=== PATIENT | male | born 1965 | race Hispanic/Latino ===

== ENCOUNTER 2019-12-13 02:31 | Inpatient (IN) | payer SELFPAY ==
[2019-12-13] MEDS ORDERED: FUROSEMIDE 100 MG/10 ML VIAL IV ONE (03:23)
[2019-12-13 03:28] LABS: Absolute Lymphocytes (CBC) 1.4 K/uL (0.7-4.9); Basophils % 0.6 % (0-1.3); Hematocrit 29.9 % (39.6-49.0); Lymphocytes % 16.3 % (15.3-44.8); MPV 9.8 fL (7.6-11.3); RBC Red Blood Cell Count 3.33 M/uL (4.33-5.43)
[2019-12-13 03:39] LABS: Protime INR 0.99
[2019-12-13 03:53] LABS: ALT/SGPT 72 U/L (12-78); AST/SGOT 69 U/L (15-37); Albumin 3.5 g/dL (3.4-5.0); Alkaline Phosphatase 84 U/L (45-117); BUN Blood Urea Nitrogen 84 mg/dL (7-18); Bicarbonate 21 mmol/L (21-32); Bilirubin Direct < 0.1 mg/dL (0-0.2); Bilirubin Total 0.3 mg/dL (0.2-1.0); Glucose Level 161 mg/dL (74-106); Potassium 4.1 mmol/L (3.5-5.1); Protein, Total 7.5 g/dL (6.4-8.2); Sodium Level 142 mmol/L (136-145); Troponin (Emerg Dept Use Only) < 0.02 ng/mL (0.0-0.045)
[2019-12-13 03:56] LABS: Magnesium 3.8 mg/dL (1.8-2.4); NT PRO-BNP 26810 pg/mL (<125)
[2019-12-13 05:06] LABS: Arterial Blood Carboxyhemoglob 1.2 % (0-1.5); Blood Gas Oxyhemoglobin 85.6 % (94-97); Blood O2 Saturation 87.8 % (92-98.5)
--- NOTE | 2019-12-13 05:09 | EDPHYS ---
Physician Documentation [facility] Name: Raphael Vega Age: 54 yrs Sex: Male : 1965 Arrival Date: 12/13/2019 Time: 02:35 Bed 8 Private MD: ED Physician Reji Panchal HPI: 12/12 03:17 This 54 yrs old Male presents to ER via Ambulatory with complaints of Cough, pkl High Blood Pressure. 03:17 The patient has shortness of breath at rest. Onset: The symptoms/episode began/occurred pkl today. Associated signs and symptoms: Pertinent positives: productive cough. Historical: - Allergies: 08:42 No Known Drug Allergies; ph - PMHx: 02:55 Hypertension; Hypothyroidism; Diabetes - NIDDM; ea - PSHx: 02:55 None; ea - Immunization history:: Adult Immunizations up to date. - Social history:: Smoking status: Patient denies any tobacco usage or history of. ROS: 03:17 Eyes: Negative for injury, pain, redness, and discharge, ENT: Negative for injury, pkl pain, and discharge, Neck: Negative for injury, pain, and swelling, Cardiovascular: Negative for chest pain, palpitations, and edema. 03:17 Respiratory: Positive for cough, with clear sputum, shortness of breath. 03:17 Abdomen/GI: Negative for abdominal pain, nausea, vomiting, and diarrhea. 03:17 Back: Negative for acute changes. 03:17 : Negative for urinary symptoms. 03:17 MS/extremity: Negative for swelling, both legs. 03:17 Skin: Negative for rash. 03:17 Neuro: Negative for altered mental status, loss of consciousness. Exam: 03:17 Head/Face: Normocephalic, atraumatic. Eyes: Pupils equal round and reactive to light, pkl extra-ocular motions intact. Lids and lashes normal. Conjunctiva and sclera are non-icteric and not injected. Cornea within normal limits. Periorbital areas with no swelling, redness, or edema. ENT: Nares patent. No nasal discharge, no septal abnormalities noted. Tympanic membranes are normal and external auditory canals are clear. Oropharynx with no redness, swelling, or masses, exudates, or evidence of obstruction, uvula midline. Mucous membranes moist. Neck: Trachea midline, no thyromegaly or masses palpated, and no cervical lymphadenopathy. Supple, full range of motion without nuchal rigidity, or vertebral point tenderness. No Meningismus. Chest/axilla: Normal chest wall appearance and motion. Nontender with no deformity. No lesions are appreciated. Cardiovascular: Regular rate and rhythm with a normal S1 and S2. No gallops, murmurs, or rubs. Normal PMI, no JVD. No pulse deficits. 03:17 Respiratory: Respirations: labored breathing, that is moderate, Breath sounds: rales, that are moderate, are scattered. 03:17 Abdomen/GI: Bowel sounds: normal, Palpation: abdomen is soft and non-tender, in all quadrants. 03:17 Back: Exam negative for acute changes. 03:17 : Exam negative for acute changes. 03:17 Musculoskeletal/extremity: Extremities: grossly normal except: noted in the both legs: swelling. 03:17 Skin: Exam negative for rash. 03:17 Neuro: Orientation: is normal, Mentation: is normal, Cranial nerves: grossly normal, Motor: is normal. Vital Signs: 02:50 BP 183 / 90; Pulse 80; Resp 19; Temp 98.3; Pulse Ox 96% on R/A; Weight 68.04 kg; Height ea 5 ft. 2 in. (157.48 cm); 03:30 BP 148 / 79; Pulse 89; Resp 22; Pulse Ox 90% ; ea 04:49 BP 163 / 84; Pulse 87; Resp 22; Pulse Ox 90% on R/A; ea 06:23 BP 160 / 98; Pulse 80; Resp 18; Temp 98.2; Pulse Ox 90% ; ea 07:30 BP 162 / 94; Pulse 82; Resp 18; Pulse Ox 98% on 2 lpm NC; ph 08:30 BP 150 / 89; Pulse 86; Resp 18; Temp 98.0; Pulse Ox 98% on 2 lpm NC; ph 02:50 Body Mass Index 27.44 (68.04 kg, 157.48 cm) ea MDM: 02:43 Patient medically screened. pkl 05:06 Data reviewed: vital signs, nurses notes, lab test result(s), EKG, radiologic studies, pkl plain films. ED course: Talked to sascha Hendricks. 12/12 02:56 Order name: Basic Metabolic Panel; Complete Time: 03:59 ea 12/12 02:56 Order name: CBC with Diff; Complete Time: 03:59 ea 12/12 02:56 Order name: LFT's; Complete Time: 03:59 ea 12/12 02:56 Order name: Magnesium; Complete Time: 03:59 ea 12/12 02:56 Order name: NT PRO-BNP; Complete Time: 03:59 ea 12/12 02:56 Order name: PT-INR; Complete Time: 03:59 ea 12/12 02:56 Order name: Troponin (emerg Dept Use Only); Complete Time: 03:59 ea 12/12 02:56 Order name: XRAY Chest (1 view) ea 12/12 03:15 Order name: ABG; Complete Time: 05:08 pkl 12/12 03:24 Order name: D-Dimer; Complete Time: 03:59 EDWI 12/12 05:29 Order name: COVID-19 mw2 12/12 06:25 Order name: Ur Protein EDWI 12/12 06:25 Order name: Urinalysis W/Microscopic EDWI 12/12 02:56 Order name: EKG; Complete Time: 02:57 12/12 02:56 Order name: Cardiac monitoring; Complete Time: 03:09 ea 12/12 02:56 Order name: EKG - Nurse/Tech; Complete Time: 03:09 12/12 02:56 Order name: IV Saline Lock; Complete Time: 03:17 ea 12/12 02:56 Order name: Labs collected and sent; Complete Time: 03:09 12/12 02:56 Order name: O2 Per Protocol; Complete Time: 03:10 ea 12/12 02:56 Order name: O2 Sat Monitoring; Complete Time: 03:10 12/12 06:19 Order name: Abdomen EDWI 12/12 06:24 Order name: CONS Pharmacy Consult EDWI 12/12 06:24 Order name: CONS Physician Consult [facility] 12/12 06:24 Order name: NPO EDWI Administered Medications: 03:17 Drug: Lasix 80 mg Route: IVP; Site: right antecubital; ea 04:58 Follow up: Response: No adverse reaction; Marked relief of symptoms ea Disposition: 12/13/19 05:08 Hospitalization ordered by Mildred Simmons for Inpatient Admission. Preliminary diagnosis is Acute dyspnea. Pulmonary edema. Chronic renal disease. - Bed requested for Telemetry/MedSurg (Inpatient). - Status is Inpatient Admission. ph - Condition is Stable. - Problem is new. - Symptoms have improved. Signatures: Dispatcher [employer] EDWI Suyapa Singh RN RN mw Lam, Pin, MD MD pkl Tania Mckenzie RN RN ph Antunez, Elena, RN RN ea Corrections: (The following items were deleted from the chart) 03:24 03:21 D-DIMER+COAG.LAB.BRZ ordered. EDWI EDMS 06:28 05:08 Hospitalization Ordered by Mildred Simmons MD for Inpatient Admission. Preliminary diagnosis is Acute dyspnea. Pulmonary edema. Chronic renal disease. Bed requested for Telemetry/MedSurg (Inpatient). Status is Inpatient Admission. Condition is Stable. Problem is new. Symptoms have improved. pkl 09:19 06:28 12/13/2019 05:08 Hospitalization Ordered by Mildred Simmons MD for Inpatient ph Admission. Preliminary diagnosis is Acute dyspnea. Pulmonary edema. Chronic renal disease. Bed requested for Telemetry/MedSurg (Inpatient). Status is Inpatient Admission. Condition is Stable. Problem is new. Symptoms have improved. mw
--- NOTE | 2019-12-13 05:09 | ER ---
Nurse's Notes [facility] Name: Raphael Vega Age: 54 yrs Sex: Male : 1965 Arrival Date: 12/13/2019 Time: 02:35 Bed 8 Private MD: Diagnosis: Acute dyspnea. Pulmonary edema. Chronic renal disease Presentation: 12/12 02:50 Chief complaint: Patient states: Reports increase blood pressure 200/100s half an hour ea ago. Pt reports he started coughing and having a hard time catching his breath. Tomasz lower extremity edema noted. Coronavirus screen: Patient reports a cough. Patient denies shortness of breath or difficulty breathing. Patient denies measured and/or subjective temperature greater than 100.4F prior to today's visit. Patient denies travel on a cruise ship or to a country the [facility] currently lists as an affected area. Patient denies contact with known and/or suspected case of COVID-19. Ebola Screen: No symptoms or risks identified at this time. Initial Sepsis Screen: Does the patient meet any 2 criteria? No. Patient's initial sepsis screen is negative. Does the patient have a suspected source of infection? No. Patient's initial sepsis screen is negative. Risk Assessment: Do you want to hurt yourself or someone else? Patient reports no desire to harm self or others. Onset of symptoms was December 13, 2019. 02:50 Method Of Arrival: Ambulatory ea 02:50 Acuity: SMITHA 3 ea Triage Assessment: 02:55 General: Appears uncomfortable, Behavior is appropriate for age. Pain: Denies pain. ea Historical: - Allergies: 08:42 No Known Drug Allergies; ph - PMHx: 02:55 Hypertension; Hypothyroidism; Diabetes - NIDDM; ea - PSHx: 02:55 None; ea - Immunization history:: Adult Immunizations up to date. - Social history:: Smoking status: Patient denies any tobacco usage or history of. Screenin:50 Abuse screen: Denies threats or abuse. Nutritional screening: No deficits noted. ea Tuberculosis screening: No symptoms or risk factors identified. Fall Risk None identified. Assessment: 02:55 General: Appears uncomfortable, Behavior is appropriate for age. Pain: Denies pain. ea Neuro: Level of Consciousness is awake, alert, obeys commands, Oriented to person, place, time, situation. Cardiovascular: Patient's skin is warm and dry. Respiratory: Airway is patent Respiratory effort is even, labored, Respiratory pattern is regular, symmetrical, Breath sounds are coarse Breath sounds with rhonchi. Derm: Skin is pink, warm \T\ dry. 03:30 Reassessment: Patient and/or family updated on plan of care and expected duration. Pain ea level reassessed. Patient is alert, oriented x 3, equal unlabored respirations, skin warm/dry/pink. 04:53 Reassessment: Patient and/or family updated on plan of care and expected duration. Pain ea level reassessed. Patient is alert, oriented x 3, equal unlabored respirations, skin warm/dry/pink. Patient states feeling better. Patient states symptoms have improved. 05:10 Reassessment: Patient and/or family updated on plan of care and expected duration. Pain ea level reassessed. Patient is alert, oriented x 3, equal unlabored respirations, skin warm/dry/pink. Provider at bedside updating pt on plan of care. Pt verbalized the understanding on the need for hospitalization. 06:23 Reassessment: Patient and/or family updated on plan of care and expected duration. Pain ea level reassessed. Patient is alert, oriented x 3, equal unlabored respirations, skin warm/dry/pink. 07:30 Reassessment: Patient appears in no apparent distress at this time. No changes from ph previously documented assessment. Patient and/or family updated on plan of care and expected duration. Pain level reassessed. Patient is alert, oriented x 3, equal unlabored respirations, skin warm/dry/pink. Vital Signs: 02:50 BP 183 / 90; Pulse 80; Resp 19; Temp 98.3; Pulse Ox 96% on R/A; Weight 68.04 kg; Height ea 5 ft. 2 in. (157.48 cm); 03:30 BP 148 / 79; Pulse 89; Resp 22; Pulse Ox 90% ; ea 04:49 BP 163 / 84; Pulse 87; Resp 22; Pulse Ox 90% on R/A; ea 06:23 BP 160 / 98; Pulse 80; Resp 18; Temp 98.2; Pulse Ox 90% ; ea 07:30 BP 162 / 94; Pulse 82; Resp 18; Pulse Ox 98% on 2 lpm NC; ph 08:30 BP 150 / 89; Pulse 86; Resp 18; Temp 98.0; Pulse Ox 98% on 2 lpm NC; ph 02:50 Body Mass Index 27.44 (68.04 kg, 157.48 cm) ea ED Course: 02:35 Patient arrived in ED. ag3 02:42 Taylor Pastor is Primary Nurse. 02:43 Reji Panchal MD is Attending Physician. pkl 02:53 Triage completed. ea 02:53 Patient has correct armband on for positive identification. Placed in gown. Bed in low ea position. Call light in reach. Side rails up X 1. sba underwriter on. Pulse ox on. NIBP on. 02:53 Arm band placed on right wrist. Patient placed in an exam room, on a stretcher, on ea pulse oximetry. 03:17 Inserted saline lock: 20 gauge in right antecubital area, using aseptic technique. ea Blood collected. 03:23 XRAY Chest (1 view) In Process Unspecified. EDMS 03:47 Notified ED physician of a critical lab result(s). D Dimer elevated. sg 05:07 Mildred Simmons MD is Hospitalizing Provider. pkl 05:10 No provider procedures requiring assistance completed. Patient admitted, IV remains in ea place. 06:47 Abdomen In Process Unspecified. EDMS Administered Medications: 03:17 Drug: Lasix 80 mg Route: IVP; Site: right antecubital; ea 04:58 Follow up: Response: No adverse reaction; Marked relief of symptoms ea Output: 04:51 Urine: 600ml (Voided); Total: 600ml. ea Outcome: 05:08 Decision to Hospitalize by Provider. pkl 05:10 Instructed on the need for admit, Demonstrated understanding of instructions. ea 08:51 Admitted to Tele accompanied by tech, room 431, with oxygen, with chart, Report called ph to [facility] 08:51 Condition: stable 09:19 Patient left the ED. ph Signatures: Dispatcher [employer] EDMS Goldy Mon RN RN sg Lam, Pin, MD MD pkl Tania Mckenzie RN RN ph Antunez, Elena, RN RN ea Habalo, Winsy Dolly Goss ag3
[2019-12-13] MEDS ORDERED: ACETAMINOPHEN 500 MG TAB PO PRN (06:20)
[2019-12-13] MEDS ORDERED: ONDANSETRON 4 MG/2 ML VIAL IV PRN (06:20)
[2019-12-13] MEDS ORDERED: MORPHINE 2 MG/ML SYR IV PRN (06:20)
--- NOTE | 2019-12-13 06:54 | P.HP ---
Certification for Inpatient Patient admitted to: Inpatient With expected LOS: >2 Midnights Patient will require the following post-hospital care: None Practitioner: I am a practitioner with admitting privileges, knowledge of patient current condition, hospital course, and medical plan of care. Services: Services provided to patient in accordance with Admission requirements found in Title 42 Section 412.3 of the Code of Federal Regulations Patient History Date of Service: 12/13/19 Reason for admission: Acute on chronic kidney disease History of Present Illness: Patient is a 54-year-old gentleman came to hospital with shortness of breath. Patient creatinine has slowly worsened over the last few months according to patient. He said he follows up with his polish compounder Dr. Briscoe-but he apparently has never seen her in the clinic; he does not have insurance and he has never been worked up extensively for hemodialysis. He was having difficulty voiding and he was given Lasix in the ER and he put out about 600 cc. He is feeling better. CT scan is pending to rule out obstructive nephropathy; make sure this is not causing his renal failure. If this is normal, then he will be admitted to our hospital for further evaluation. Allergies No Known Drug Allergies Allergy (Verified 12/13/19 10:17) Unknown Home Medications: Atenolol [Tenormin] 25 mg PO DAILY 12/13/19 Furosemide [Lasix*] 40 mg PO DAILY 12/13/19 glipiZIDE [Glucotrol*] 5 mg PO DAILY 12/13/19 lisinopriL [Prinivil*] 20 mg PO DAILY 12/13/19 - Past Medical/Surgical History -: Chronic kidney disease -: Hypertension -: Diabetes -: Hypothyroidism Past Surgical History: Patient denies surgical history - Family History Father Family History: Reviewed- Non-Contributory - Social History Smoking Status: Former smoker Alcohol use: No CD- Drugs: No Review of Systems 10-point ROS is otherwise unremarkable Physical Examination - Vital Signs Temperature: 99 F Blood Pressure: 180/90 Pulse: 90 Respirations: 18 Pulse Ox (%): 90 - Physical Exam General: Alert, In no apparent distress, Oriented x3 HEENT: Atraumatic, PERRLA, Mucous membr. moist/pink, EOMI, Sclerae nonicteric Neck: Supple, 2+ carotid pulse no bruit, No LAD, Without JVD or thyroid abnormality Respiratory: Diminished, Crackles/rales Cardiovascular: Regular rate/rhythm, Normal S1 S2, No murmurs Gastrointestinal: Normal bowel sounds, Soft and benign, Non-distended, No tenderness Musculoskeletal: No clubbing, No tenderness, Swelling Integumentary: No rashes Neurological: Normal gait, Normal speech, Normal tone, Sensation intact, Cranial nerves 3-12 intact, Normal affect, Abnormal strength Lymphatics: No axilla or inguinal lymphadenopathy - Studies Laboratory Data (last 24 hrs) 12/13/19 03:06: PT 11.7, INR 0.99 12/13/19 03:06: WBC 8.5, Hgb 10.1 L, Hct 29.9 L, Plt Count 176 12/13/19 03:06: Sodium 142, Potassium 4.1, BUN 84 H, Creatinine 5.94 H*, Glucose 161 H, Magnesium 3.8 H*, Total Bilirubin 0.3, AST 69 H, ALT 72, Alkaline Phosphatase 84 Assessment & Plan - Problems (Diagnosis) (1) Acute kidney injury superimposed on chronic kidney disease Current Visit: Yes Status: Acute (2) Volume overload Current Visit: Yes Status: Acute (3) Dyspnea Current Visit: Yes Status: Acute (4) Hypertension Current Visit: Yes Status: Acute (5) Type 2 diabetes mellitus Current Visit: Yes Status: Acute - Plan Plan: 1. Nephrology consultation 2. Continue to diurese patient 3. Strict blood pressure control 4. COVID-19 testing 5. Albuterol inhaler therapy along with dexamethasone 6. Strict blood sugar control 7. Monitor thyroid levels 8. GI and DVT prophylaxis Discharge Plan: Home Plan to discharge in: Greater than 2 days - Advance Directives Does patient have a Living Will: No Does patient have a Durable POA for Healthcare: No - Code Status/Comfort Care Code Status Assessed: Yes Code Status: Full Code Critical Care: No Time Spent Managing PTS Care (In Minutes): 45
[2019-12-13] MEDS ORDERED: NA CHLORIDE 0.9% 1,000 ML IV SCH (07:00)
[2019-12-13] MEDS ORDERED: FUROSEMIDE 40 MG/4 ML VIAL IV SCH (08:00)
[2019-12-13] MEDS: AMLODIPINE 10 MG TAB PO SCH (10:03)
[2019-12-13] MEDS: FUROSEMIDE 100 MG/10 ML VIAL IV SCH ×2 (10:04→17:38)
[2019-12-13 10:26] VITALS: BMI 27.4
--- NOTE | 2019-12-13 10:59 | RAD REPORT ---
EXAM DESCRIPTION: Maryana Single View12/13/2019 3:23 am CLINICAL HISTORY: Cough COMPARISON: none FINDINGS: Small pleural effusions The heart is mildly enlarged Moderate left alveolar opacities. There may be minimal right lung opacities IMPRESSION: Moderate left alveolar opacities with minimal right lung opacities. This may indicate pn eumonia such as Covid or asymmetric pulmonary edema
[2019-12-13 13:11] LABS: Urine Appearance CLEAR; Urine Bilirubin NEGATIVE (NEG); Urine Blood 2+ (NEG); Urine Color YELLOW; Urine Glucose NEGATIVE (NEG); Urine Protein 2+ (NEG); Urine Urobilinogen 0.2 mg/dL (0.2-1.0)
[2019-12-13 13:15] LABS: Urine Protein/Creatinine Ratio 6.8 ratio (<0.15)
[2019-12-13 13:16] LABS: Urine Bacteria <20 /HPF (NONE SEEN); Urine RBC <5 /HPF (NONE SEEN)
[2019-12-13 13:17] LABS: Urine Culture Reflex Order NOT NEEDED
--- NOTE | 2019-12-13 13:33 | CON ---
Date of Consultation: 12/13/2019 Additional Consulting Physician: Mildred Simmons M.D. Reason For Consultation: Elevated BUN and creatinine. History Of Present Illness: This is a 54-year-old gentleman with significant past medical history of diabetes complicated with neuropathy and nephropathy, hypertension, hyperlipidemia, chronic kidney d isease unknown base line, the patient came to the hospital complaining from cough without any nausea, any vomiting. The patient was admitted to rule out COVID. The patient known to have chronic kidney disease, but he does not know his baseline. Past Medical History: 1.Diabetes. 2.Hypertension. 3.Hyperlipidemia. Social History: Denies smoking. Denies drinking. Allergies: NO KNOWN DRUG ALLERGIES. Family History: Positive for diabetes. Past Surgical History: Non contribute. Review of Systems: Head and Neck: No red eye. No ear pain. GI: No nausea. No vomiting. : No polyuria. No dysuria. No hematuria. Cooler Service Supervisor: Not applicable. Respiratory: No shortness of breath. Cardiovascular: No chest pain. Endocrine: No polydipsia. Skin: No rash. Neuro: Has neuropathy. Musculoskeletal: No joint pain. Physical Examination: Vital Signs: When I saw the patient, blood pressure 162/88, pulse of 91. Chest: Faint crackles bilateral base. Heart: S1 and S2. Systolic murmur. Abdomen: Soft. Nontender. Extremities: No edema. Neurologic: Alert and oriented x3. No focal. No tremor. Laboratory Data: WBC 8.5, H and H 10.1/29.9, platelets 176. Sodium 142, potassium 4.1, bicarb 21, B UN 84, creatinine 5.9, GFR of 8, calcium 7.8, magnesium 3.8. BNP 26,000. Chest x-ray, cardiomegaly with congestion bilaterally. ABG; pH 7.36, CO2 36, O2 55. Current Medications: The patient on include amlodipine, Tylenol, Lasix, Zofran. Assessment And Plan: 1.Acute kidney injury on possible chronic kidney disease secondary to diabetes, nephropathy, over vo lume. I am going to go ahead and increase his Lasix to t.i.d. There are no uremic symptoms. No hyp erkalemia or acidosis. I do not see the urgency to initiate renal replacement therapy for the time ei. We will follow up. We will get renal ultrasound and PTH to evaluate the chronicity of the dis ease. 2.With the presence of anemia, light chain disease needs to be ruled out. We will send for protein electrophoresis. 3.Hypertension. We will utilize the blood pressure for more diuresis. 4.Diabetes, as by primary. 5.Suspect COVID pneumonia. We will follow up with Pulmonary. DEDRICK Voice ID: [id number] Report ID: [id number]
--- NOTE | 2019-12-13 18:42 | RAD REPORT ---
EXAM DESCRIPTION: US - Renal Ultrasound-Complete - 12/13/2019 6:34 pm CLINICAL HISTORY: Chronic renal disease COMPARISON: None. FINDINGS: The right kidney measures 9 cm with an increased echotexture. The left kidney measures 8 cm with an increased echotexture. Hydronephrosis is not seen. No gross abnormality of bladder is seen IMPRESSION: Increased renal echotexture consistent with parenchymal disease
--- NOTE | 2019-12-14 08:10 | EKG ---
Test Date: 2019-12-13 Test Time: 03:05:07 Clinical Pharmacologist: ERICA MEASUREMENT RESULTS: Intervals: Rate: 109 ME: 132 QRSD: 76 QT: 358 QTc: 482 Chambers: P: 68 ME: 132 QRS: -7 T: 71 INTERPRETIVE STATEMENTS: Sinus tachycardia Possible Left atrial enlargement Nonspecific ST and T wave abnormality Abnormal ECG No previous ECG available for comparison Electronically Signed On 12-14-19 08:08:56 CDT by Keven Zamudio
[2019-12-14 08:23] LABS: Albumin 2.9 g/dL (3.4-5.0); Phosphorus 6.6 mg/dL (2.5-4.9); Potassium 3.8 mmol/L (3.5-5.1); Thyroid Stimulating Hormone 1.5 uIU/mL (0.360-3.740)
[2019-12-14] MEDS: FUROSEMIDE 100 MG/10 ML VIAL IV SCH (09:15)
[2019-12-14] MEDS: AMLODIPINE 10 MG TAB PO SCH (09:16)
[2019-12-14 10:40] LABS: Ferritin 96.4 ng/mL (26-388); Folic Acid, (Folate) 14.2 ng/mL (3.1-17.5)
--- NOTE | 2019-12-14 12:09 | P.PN ---
Subjective Date of Service: 12/14/19 Chief Complaint: Acute on chronic kidney disease Subjective: No new changes, No C/O voiced Review of Systems 10-point ROS is otherwise unremarkable Physical Examination - Vital Signs Temperature: 98.4 F Blood Pressure: 122/68 Pulse: 71 Respirations: 16 Pulse Ox (%): 100 - Physical Exam General: Alert, In no apparent distress HEENT: Atraumatic, Normocephalic Neck: Supple Respiratory: Clear to auscultation bilaterally, Normal air movement Cardiovascular: No edema, Normal pulses, Regular rate/rhythm Capillary refill: <2 Seconds Gastrointestinal: Soft and benign, W/out hepatosplenomegaly Musculoskeletal: No clubbing, No swelling Integumentary: No rashes Neurological: Normal speech, Normal strength at 5/5 x4 extr Lymphatics: No axilla or inguinal lymphadenopathy Assessment & Plan - Problems (Diagnosis) (1) Acute kidney injury superimposed on chronic kidney disease Current Visit: Yes Status: Acute (2) Dyspnea Current Visit: Yes Status: Acute (3) Hypertension Current Visit: Yes Status: Acute (4) Type 2 diabetes mellitus Current Visit: Yes Status: Acute (5) Volume overload Current Visit: Yes Status: Acute Physician Review Additional Text: Plan: Nephrology consultation appreciated Continue to diurese patient Strict blood pressure control COVID-19 testing Albuterol inhaler therapy along with dexamethasone Strict blood sugar control Monitor thyroid levels GI and DVT prophylaxis 12/14/2019 renal parameters monitored Appreciate help from nephrology Renal ultrasound showed parenchymal disease Nephrology recommended conservative management No urgent indication for dialysis At this time Antihypertensives titrated Continue aggressive diuresis Monitor under telemetry Possible Dc if cleared by Nephrology in a.m. Time Spent Managing Pts Care (In Minutes): 38
[2019-12-14] MEDS ORDERED: CALCITROL 0.25 MCG CAP PO SCH (15:00)
--- NOTE | 2019-12-14 15:24 | P.DS ---
Admission Date: 12/13/19 Discharge Date: 12/15/19 Disposition: ROUTINE DISCHARGE Discharge Condition: GOOD Reason for Admission: Acute on chronic kidney disease - Problems (1) Acute kidney injury superimposed on chronic kidney disease Status: Acute (2) Dyspnea Status: Acute (3) Hypertension Status: Acute (4) Type 2 diabetes mellitus Status: Acute (5) Volume overload Status: Acute Brief History of Present Illness: 54-year-old gentleman came to hospital with shortness of breath. Patient creatinine has slowly worsened over the last few months according to patient. He said he follows up with his irrigationist designer Dr. Briscoe-but he apparently has never seen her in the clinic; he does not have insurance and he has never been worked up extensively for hemodialysis. He was having difficulty voiding and he was given Lasix in the ER and he put out about 600 cc. He is feeling better. CT scan is pending to rule out obstructive nephropathy; make sure this is not causing his renal failure. If this is normal, then he will be admitted to our hospital for further evaluation. Hospital Course: Nephrology consultation appreciated Continue to diurese patient Strict blood pressure control COVID-19 testing Albuterol inhaler therapy along with dexamethasone Strict blood sugar control Monitor thyroid levels GI and DVT prophylaxis 12/14/2019 renal parameters monitored Appreciate help from nephrology Renal ultrasound showed parenchymal disease Nephrology recommended conservative management No urgent indication for dialysis At this time Antihypertensives titrated Continue aggressive diuresis Monitor under telemetry Possible Dc if cleared by Nephrology . Vital Signs/Physical Exam: Temp Pulse Resp BP Pulse Ox 98.4 F 71 16 122/68 100 12/14/19 12:11 12/14/19 12:11 12/14/19 12:11 12/14/19 12:11 12/14/19 12:11 General: Alert, In no apparent distress HEENT: Atraumatic, Normocephalic Neck: Supple Respiratory: Clear to auscultation bilaterally, Normal air movement Cardiovascular: Normal pulses, Regular rate/rhythm Capillary refill: <2 Seconds Gastrointestinal: Soft and benign, W/out hepatosplenomegaly Musculoskeletal: No clubbing, No swelling Integumentary: No breakdown Neurological: Normal speech, Normal strength at 5/5 x4 extr Laboratory Data at Discharge: WBC 8.5 K/uL (4.3-10.9) 12/13/19 03:06 Hgb 10.1 g/dL (13.6-17.9) L 12/13/19 03:06 Hct 29.9 % (39.6-49.0) L 12/13/19 03:06 Plt Count 176 K/uL (152-406) 12/13/19 03:06 PT 11.7 SECONDS (9.5-12.5) 12/13/19 03:06 INR 0.99 12/13/19 03:06 Sodium 143 mmol/L (136-145) 12/14/19 06:14 Potassium 3.8 mmol/L (3.5-5.1) 12/14/19 06:14 BUN 100 mg/dL (7-18) H 12/14/19 06:14 Creatinine 6.14 mg/dL (0.55-1.3) H* 12/14/19 06:14 Glucose 82 mg/dL (74-106) 12/14/19 06:14 Phosphorus 6.6 mg/dL (2.5-4.9) H 12/14/19 06:14 Magnesium 3.8 mg/dL (1.8-2.4) H* 12/13/19 03:06 Total Bilirubin 0.3 mg/dL (0.2-1.0) 12/13/19 03:06 AST 69 U/L (15-37) H 12/13/19 03:06 ALT 72 U/L (12-78) 12/13/19 03:06 Alkaline Phosphatase 84 U/L (45-117) 12/13/19 03:06 Home Medications: glipiZIDE [Glucotrol*] 5 mg PO DAILY 12/13/19 Amlodipine [Norvasc*] 10 mg PO DAILY #30 tab 12/14/19 Calcitrol [Rocaltrol*] 0.25 mcg PO Q48H #30 cap 12/14/19 Calcium Carbonate [Tums Regular*] 500 mg PO AC #90 tab 12/14/19 Furosemide [Lasix] 40 mg PO BID #60 tab 12/14/19 Furosemide [Lasix] 80 mg PO DAILY 30 Days #60 tab 12/14/19 New Medications: Furosemide [Lasix] 80 mg PO DAILY 30 Days #60 tab Furosemide [Lasix] 40 mg PO BID #60 tab Amlodipine [Norvasc*] 10 mg PO DAILY #30 tab Calcitrol [Rocaltrol*] 0.25 mcg PO Q48H #30 cap Calcium Carbonate [Tums Regular*] 500 mg PO AC #90 tab Followup: Pretty Carolina MD [ACTIVE - CAN ADMIT] - Time spent managing pt's care (in minutes): 35
[2019-12-14 16:20] VITALS: O2SAT 95
[2019-12-14] MEDS ORDERED: CALCIUM CARBONATE CHEW 500MG TAB PO SCH (16:30)
[2019-12-14 16:49] VITALS: BP 117/65; TEMP 98.9
--- NOTE | 2019-12-14 20:28 | PN ---
Date of Progress Note: 12/14/2019 Subjective: The patient was admitted with elevation in BUN and creatinine. The patient was over vol ume. The patient started on diuresis, responded to diuresis very well. Physical Examination: Vital Signs: Blood pressure 122/68, pulse of 70, afebrile. Patient had good urine output of 3100, n egative of 2200. Patient is on room air. Chest: Clear to auscultation. Heart: S1, S2 regular. Abdomen: Soft, nontender. Extremities: No edema. Laboratory Data: H and H 10.1/29.9. Sodium 143, potassium 3.8, bicarb 26, BUN 100, creatinine 6.1, calcium 8.1, phosphorus 6.6. Renal ultrasound is showing 9/8 cm. Assessment And Plan: 1.Chronic kidney disease, stage 5, advanced nonoliguric, no hyperkalemia. No acidosis. Normal volum e, currently responds to diuresis. I do not see the need to initiate any renal replacement therapy. We will continue current diuresis. The patient is okay to be discharged on current Lasix. To follo w up in the office in 2-3 weeks with chemistry. The patient understands he need to be on fluid restr iction. 2.Hypertension, controlled, optimal. We will keep utilizing the blood pressure for more diuresis. 3.Pulmonary edema as above. 4.Secondary hyperparathyroidism. I am going to start the patient on calcitriol and Tums. NARENDRA/RAVI Voice ID: [id number] Report ID: [id number]
--- NOTE | 2019-12-15 08:31 | RAD REPORT ---
EXAM DESCRIPTION: CT - Abdomen Pelvis Wo Contrast - 12/13/2019 7:52 am CLINICAL HISTORY: ADRIAN COMPARISON: None. TECHNIQUE: Sequential axial images were obtained with a multi-detector helical CT without administra tion of intravenous iodinated contrast material. Oral contrast was not given. Automatic exposure control (AEC), mA and/or kV adjustment by patient s ize, and/or iterative reconstructive technique was used, per departmental dose optimization program, during the performance of the CT examination. The lack of intravenous contrast limits detailed evaluation of the abdominal organs. FINDINGS: The visualized lung bases demonstrate bilateral pleural effusions right greater than left. Groundglass opacities are seen in the lung bases, greater in the left lower lobe. Possibility of vir al pneumonia including COVID-19 19 pneumonia should be considered is also suggestion of a small peric ardial effusion and anemia. The non-contrast enhanced images of the liver, spleen, pancreas and adrenals are unremarkable. Gallbl adder is unremarkable The kidneys are normal in appearance. There are no renal calculi. Mild perinephric stranding is noted probably sequela of remote renal infection or obstruction Normal appearance of the abdominal aorta, IVC and retroperitoneum are noted. The stomach is unremarkable. The loops of small bowel are unremarkable. The colon appears unremarka ble. The appendix is normal. The bladder is unremarkable. There is no pelvic or abdominal lymphadenopathy. No ascites. No fr ee air. The prostate and seminal vesicles appear normal. The inguinal regions demonstrate fat-containing bilateral inguinal hernia.. The visualized bony structures are unremarkable. Mild disc protrusion is noted at L5-S1 IMPRESSION: Unremarkable non-contrast abdominal and pelvis CT. Presence of bilateral pleural effus ions and groundglass opacities in lung bases as described above. Electronically signed by: Joana Stallings MD 12/13/2019 7:36 AM CDT Due to temporary technical issues with the PACS/Fluency reporting system, reports are being signed by the in house radiologist without review as a courtesy to ensure prompt reporting. The interpreting r adiologist is fully responsible for the content of the report.
[2019-12-18 23:04] LABS: Albumin, (SPE) 3.1 g/dL (3.8-4.8); Alpha-1-Globulins 0.3 g/dL (0.2-0.3); Alpha-2-Globulins 0.7 g/dL (0.5-0.9); Gamma Globulins 0.7 g/dL (0.8-1.7); INTERPRETATION REPORT
== END 2019-12-14 16:24 | disposition home or self-care (01) | DRG 683 ==
LOC: ER 02:31 → ERHOLD 06:54 → 4TH 08:51
PROVIDERS: ADMIT Hospitalist; ATTEND Hospitalist
DX: N17.9 Acute kidney failure, unspecified (principal); I12.0 Hypertensive chronic kidney disease with stage 5 chronic kidney disease or end stage renal disease; J81.1 Chronic pulmonary edema; E11.22 Type 2 diabetes mellitus with diabetic chronic kidney disease; R06.02 Shortness of breath; Z79.84 Long term (current) use of oral hypoglycemic drugs; Z20.828 Contact with and (suspected) exposure to other viral communicable diseases; Z79.899 Other long term (current) drug therapy; E87.70 Fluid overload, unspecified; R06.00 Dyspnea, unspecified; R05 Cough; N18.5 Chronic kidney disease, stage 5; N25.81 Secondary hyperparathyroidism of renal origin; E11.40 Type 2 diabetes mellitus with diabetic neuropathy, unspecified; E78.5 Hyperlipidemia, unspecified; D64.9 Anemia, unspecified; Z87.891 Personal history of nicotine dependence
CPT/HCPCS: 36415; 71045; 74176; 76770; 80048; 80069; 80076; 81001; 82550; 82570; 82728; 82746; 82805; 82947; 83735; 83880; 83970; 84156; 84165; 84443; 84484; 85025; 85379; 85610; 86038; 93005; 96374; 99285; U0002

== ENCOUNTER 2020-04-26 06:36 | Emergency (ER) | payer SELFPAY ==
--- NOTE | 2020-04-26 08:05 | RAD REPORT ---
EXAM DESCRIPTION: RAD - Chest Single View - 04/26/2020 7:48 am CLINICAL HISTORY: ESRD, shortness of breath COMPARISON: December 12 TECHNIQUE: AP portable chest image was obtained 04/26/2020 7:48 am . FINDINGS: Right jugular double-lumen dialysis catheter in place, new since the comparison study. Cat heter is well positioned. Patchy bilateral airspace opacification present. Mild baseline interstitial pattern seen. Cardiac joanne houette is mildly enlarged but measures smaller than the prior study. No measurable pleural effusion and no pneumothorax. No acute bony abnormality seen. No acute aortic findings suspected. IMPRESSION: Scattered bilateral airspace opacification. In a dialysis patient with no stated acute respiratory symptoms, this lung pattern is most likely vol ume overload.
[2020-04-26 08:23] LABS: Potassium 4.7 mmol/L (3.5-5.1)
--- NOTE | 2020-04-26 08:48 | EDPHYS ---
Physician Documentation [facility] Name: Raphael Vega Age: 54 yrs Sex: Male : 1965 Arrival Date: 04/26/2020 Time: 06:40 Bed 7 Private MD: ED Physician Román Winters HPI: 04/26 08:04 This 54 yrs old Male presents to ER via Ambulatory with complaints of ESRD. rn 08:04 Reports told by nephrology that needs to come 3x/week for dialysis, in undocumented, rn not from this country, and unable to get assistance for dialysis. Just initiated dialysis last week for first time, no complaints. . Onset: The symptoms/episode began/occurred at an unknown time. Severity of symptoms: At their worst the symptoms were very mild. The patient has experienced similar episodes in the past. The patient has been recently been admitted at [facility]. Historical: - Allergies: 06:52 No Known Allergies; sg - PMHx: 06:52 Diabetes - NIDDM; Hypertension; Hypothyroidism; sg - PSHx: 06:52 None; sg - Immunization history:: Adult Immunizations up to date. - Social history:: Smoking status: Patient denies any tobacco usage or history of. - Family history:: not pertinent. - Hospitalizations: : The patient was recently seen at [facility]. ROS: 08:04 Constitutional: Negative for fever, chills, and weight loss, Eyes: Negative for injury, rn pain, redness, and discharge, Neck: Negative for injury, pain, and swelling, Cardiovascular: Negative for chest pain, palpitations, and edema, Respiratory: Negative for shortness of breath, cough, wheezing, and pleuritic chest pain, Abdomen/GI: Negative for abdominal pain, nausea, vomiting, diarrhea, and constipation, Back: Negative for injury and pain, MS/Extremity: Negative for injury and deformity, Skin: Negative for injury, rash, and discoloration, Neuro: Negative for headache, weakness, numbness, tingling, and seizure. Exam: 08:04 Constitutional: This is a well developed, well nourished patient who is awake, alert, rn and in no acute distress. Head/Face: Normocephalic, atraumatic. Chest/axilla: + right sided catheter for dialysis clean and dry Cardiovascular: Regular rate and rhythm. No pulse deficits. Respiratory: Speaking full sentences, unlabored. No increased work of breathing, no retractions or nasal flaring. Abdomen/GI: soft, non-tender Skin: Warm, dry MS/ Extremity: Pulses equal, no cyanosis. Neurovascular intact. Full, normal range of motion. Equal circumference. Neuro: Awake and alert, GCS 15 Vital Signs: 06:46 BP 146 / 82; Pulse 87; Resp 20; Temp 97.7; Pulse Ox 97% on R/A; sg 08:00 BP 137 / 78; Pulse 76; Resp 18; Pulse Ox 99% on R/A; em MDM: 06:56 Patient medically screened. ma2 08:42 Differential Diagnosis ESRD, hyperkalemia, volume overload. Data reviewed: vital signs, rn nurses notes, lab test result(s), EKG, radiologic studies, plain films, and as a result, I will discharge patient. Counseling: I had a detailed discussion with the patient and/or guardian regarding: the historical points, exam findings, and any diagnostic results supporting the discharge/admit diagnosis, lab results, radiology results. 08:45 ED course: Pt still make surine, will dc after lasix. Potassium ok, no ecg changes, cxr rn mild pulmonary edema, no indication for emergent dialysis. . 04/26 07:12 Order name: BMP; Complete Time: 08:42 rn 04/26 07:12 Order name: XRAY Chest (1 view); Complete Time: 08:09 rn 04/26 07:12 Order name: IV Start; Complete Time: 07:49 rn 04/26 07:12 Order name: EKG; Complete Time: 07:13 rn 04/26 07:12 Order name: EKG - Nurse/Tech; Complete Time: 07:49 rn Administered Medications: 09:17 Drug: Lasix 40 mg Route: IVP; Site: right forearm; em 09:24 Follow up: Response: Medication administered at discharge. em Disposition: 04/26/20 08:47 Discharged to Home. Impression: End stage renal disease. - Condition is Stable. - Discharge Instructions: Dialysis, End-Stage Kidney Disease. - Medication Reconciliation Form, Thank You Letter, Antibiotic Education, Prescription Opioid Use form. - Follow up: Private Physician; When: As needed; Reason: Recheck today's complaints, Re-evaluation by your physician. - Problem is new. - Symptoms have improved. Signatures: Dispatcher [employer] EDGoldy Pearson RN RN sg Munoz, Edgar, RN RN em Nieto, Roman, MD MD rn Alzahri, Mohammad, MD MD ma2 Corrections: (The following items were deleted from the chart) 09:24 08:47 04/26/2020 08:47 Discharged to Home. Impression: End stage renal disease. em Condition is Stable. Forms are Medication Reconciliation Form, Thank You Letter, Antibiotic Education, Prescription Opioid Use. Follow up: Private Physician; When: As needed; Reason: Recheck today's complaints, Re-evaluation by your physician. Problem is new. Symptoms have improved. rn
--- NOTE | 2020-04-26 08:48 | ER ---
Nurse's Notes [facility] Name: Raphael Vega Age: 54 yrs Sex: Male : 1965 Arrival Date: 04/26/2020 Time: 06:40 Bed 7 Private MD: Diagnosis: End stage renal disease Presentation: 04/26 06:48 Chief complaint: Patient states: My doctor sent me here for an evaluation because Im sg supposed to be doing dialysis but I dont have a dialysis center set up yet and have not been dialyzed. Dr.Raymond Winters referred me back to the ED if I was not able to have dialysis as outpatient. Coronavirus screen: Client denies travel out of the [place] in the last 14 days. At this time, the client does not indicate any symptoms associated with coronavirus-19. Ebola Screen: Patient negative for fever greater than or equal to 101.5 degrees Fahrenheit, and additional compatible Ebola Virus Disease symptoms Patient denies exposure to infectious person. Patient denies travel to an Ebola-affected area in the 21 days before illness onset. No symptoms or risks identified at this time. Initial Sepsis Screen: Does the patient meet any 2 criteria? No. Patient's initial sepsis screen is negative. Does the patient have a suspected source of infection? No. Patient's initial sepsis screen is negative. Risk Assessment: Do you want to hurt yourself or someone else? Patient reports no desire to harm self or others. Onset of symptoms was April 26, 2020. Care prior to arrival: None. Mechanism of Injury: No Mechanism of Injury. Transition of care: patient was not received from another setting of care. 06:48 Method Of Arrival: Ambulatory sg 06:48 Acuity: SMITHA 3 sg Historical: - Allergies: 06:52 No Known Allergies; sg - PMHx: 06:52 Diabetes - NIDDM; Hypertension; Hypothyroidism; sg - PSHx: 06:52 None; sg - Immunization history:: Adult Immunizations up to date. - Social history:: Smoking status: Patient denies any tobacco usage or history of. - Family history:: not pertinent. - Hospitalizations: : The patient was recently seen at [facility]. Screenin:01 Abuse screen: Denies threats or abuse. Nutritional screening: No deficits noted. em Tuberculosis screening: No symptoms or risk factors identified. Fall Risk None identified. Assessment: 08:00 General: Appears in no apparent distress. comfortable, Behavior is calm, cooperative, em appropriate for age, Denies fever. Pain: Denies pain. Neuro: Level of Consciousness is awake, alert, obeys commands, Oriented to person, place, time, situation, Appropriate for age. Cardiovascular: Denies chest pain, shortness of breath, Capillary refill < 3 seconds Patient's skin is warm and dry. Edema is 2+ to left ankle, left foot, right ankle and right foot Rhythm is sinus rhythm. Respiratory: Airway is patent Respiratory effort is even, unlabored, Respiratory pattern is regular, symmetrical. GI: Patient currently denies nausea, vomiting. Derm: Skin is intact, is healthy with good turgor, Skin is pink, warm \T\ dry. Musculoskeletal: Capillary refill < 3 seconds, Range of motion: intact in all extremities. 09:00 Reassessment: Patient appears in no apparent distress at this time. Patient and/or em family updated on plan of care and expected duration. Pain level reassessed. Patient is alert, oriented x 3, equal unlabored respirations, skin warm/dry/pink. Vital Signs: 06:46 BP 146 / 82; Pulse 87; Resp 20; Temp 97.7; Pulse Ox 97% on R/A; sg 08:00 BP 137 / 78; Pulse 76; Resp 18; Pulse Ox 99% on R/A; em ED Course: 06:40 Patient arrived in ED. bp1 06:48 Arm band placed on. sg 06:51 Triage completed. sg 06:56 Mildred Lopez MD is Attending Physician. ma2 07:02 César Bellamy, RN is Primary Nurse. em 07:06 Attending Physician role handed off by Mildred Lopez MD rn 07:06 Román Winters MD is Attending Physician. rn 07:40 EKG done, by ED staff, reviewed by Román Winters MD. dh3 07:44 Initial lab(s) drawn, by me, sent to lab. Inserted saline lock: 20 gauge in right dh3 forearm, using aseptic technique. Blood collected. 07:48 XRAY Chest (1 view) In Process Unspecified. EDMS 08:01 Patient has correct armband on for positive identification. Bed in low position. Call em light in reach. Side rails up X2. monitoring manager on. Pulse ox on. NIBP on. 09:22 No provider procedures requiring assistance completed. IV discontinued, intact, em bleeding controlled, No redness/swelling at site. Pressure dressing applied. Administered Medications: :17 Drug: Lasix 40 mg Route: IVP; Site: right forearm; em 09:24 Follow up: Response: Medication administered at discharge. em Outcome: 08:47 Discharge ordered by MD. rn :22 Discharged to home ambulatory. em : Condition: stable 09:22 Discharge instructions given to patient, Instructed on discharge instructions, follow up and referral plans. Demonstrated understanding of instructions, follow-up care. 09:24 Patient left the ED. em Signatures: Dispatcher [employer] EDGoldy Pearson RN RN César Bellamy RN RN em Nieto, Roman, MD MD rn Herrera, Camille 3 Mildred Lopez MD MD ar2 Veda Kenney [facility]
[2020-04-26] MEDS ORDERED: FUROSEMIDE 40 MG/4 ML VIAL ONE (09:17)
[2020-04-26 09:38] VITALS: TEMP 97.7
[2020-04-26 09:39] VITALS: BP 137/78; O2SAT 99
--- NOTE | 2020-04-28 06:12 | EKG ---
Test Date: 2020-04-26 Test Time: 07:36:02 Delivery Tech: LAITH MEASUREMENT RESULTS: Intervals: Rate: 93 NC: 142 QRSD: 78 QT: 382 QTc: 474 [place]: P: 55 NC: 142 QRS: 5 T: 223 INTERPRETIVE STATEMENTS: Normal sinus rhythm Possible Left atrial enlargement ST & T wave abnormality, consider lateral ischemia Prolonged QT Abnormal ECG Compared to ECG 12/13/2019 03:05:07 Possible ischemia now present Prolonged QT interval now present Sinus tachycardia no longer present ST (T wave) deviation still present Electronically Signed On 04-28-20 06:10:00 GRAPE PRUNER by Keven Zamudio
== END 2020-04-26 09:24 | disposition home or self-care (01) ==
LOC: ER 06:36
DX: I12.0 Hypertensive chronic kidney disease with stage 5 chronic kidney disease or end stage renal disease (principal); E11.22 Type 2 diabetes mellitus with diabetic chronic kidney disease; N18.6 End stage renal disease; Z99.2 Dependence on renal dialysis
CPT/HCPCS: 36415; 71045; 80048; 93005; 96374; 99284; J1940

== ENCOUNTER 2020-05-14 18:27 | Inpatient (IN) | payer SELFPAY ==
[2020-05-14 20:31] LABS: Absolute Lymphocytes (CBC) 0.4 K/uL (0.7-4.9); Basophils % 0.9 % (0-1.3); Hematocrit 21.3 % (39.6-49.0); Lymphocytes % 4.9 % (15.3-44.8); MPV 10.9 fL (7.6-11.3); RBC Red Blood Cell Count 2.52 M/uL (4.33-5.43)
[2020-05-14 20:56] LABS: Potassium 3.4 mmol/L (3.5-5.1)
--- NOTE | 2020-05-14 21:31 | RAD REPORT ---
EXAM DESCRIPTION: USExtrem Venous W Compress Bil05/14/2020 9:19 pm CLINICAL HISTORY: Leg pain COMPARISON: none FINDINGS: The common femoral, superficial femoral, popliteal and posterior tibial veins bilaterally are compressible and demonstrate augmentation. Doppler demonstrates good flow. IMPRESSION: No evidence of deep venous thrombosis involving either lower extremity.
--- NOTE | 2020-05-14 22:05 | EDPHYS ---
Physician Documentation [facility] Name: Raphael Vega Age: 54 yrs Sex: Male : 1965 Arrival Date: 05/14/2020 Time: 18:27 Bed 14 Private MD: ED Physician Ean Villagomez HPI: 05/14 19:30 This 54 yrs old Male presents to ER via Wheelchair with complaints of Sick, cp Body Aches. 19:30 The patient presents with pain, that is acute. cp 19:30 The complaints affect the right hand, left hand, right leg and left leg. cp 19:30 Onset: The symptoms/episode began/occurred 1 week(s) ago. cp 19:30 Associated signs and symptoms: Pertinent positives: headache. Patient reports testing cp positive for COVID-19 on 04-26-2020. Historical: - Allergies: 18:47 No Known Allergies; aa5 - PMHx: 18:47 Diabetes - NIDDM; Hypertension; Hypothyroidism; aa5 18:48 Kidney Failure on 04/26/20; aa5 - Immunization history:: Adult Immunizations unknown. - Social history:: Smoking status: Patient denies any tobacco usage or history of. ROS: 19:35 Constitutional: Positive for body aches, Negative for chills, fever. cp 19:35 Eyes: Negative for injury, pain, redness, and discharge. cp 19:35 Cardiovascular: Positive for edema, Negative for chest pain. 19:35 Respiratory: Negative for cough, shortness of breath, wheezing. 19:35 Abdomen/GI: Negative for abdominal pain, nausea, vomiting, and diarrhea. 19:35 MS/extremity: Positive for pain, of the right hand, left hand, right leg and left leg, cp Negative for injury or acute deformity, paresthesias. 19:35 Neuro: Positive for headache, Negative for altered mental status. cp 19:35 All other systems are negative. Exam: 19:40 Constitutional: The patient appears in no acute distress, alert, awake, cp non-diaphoretic, non-toxic, well developed, frail. 19:40 Head/Face: Normocephalic, atraumatic. cp 19:40 Eyes: Periorbital structures: appear normal, Conjunctiva: normal, no exudate, no injection, Lids and lashes: appear normal, bilaterally. 19:40 ENT: External ear(s): are unremarkable, Nose: is normal, Mouth: Lips: dry, Oral mucosa: moist, Posterior pharynx: Airway: no evidence of obstruction, patent. 19:40 Neck: ROM/movement: is normal, is supple, without pain, no range of motions limitations. 19:40 Chest/axilla: Inspection: normal, Palpation: is normal, no crepitus, no tenderness. 19:40 Cardiovascular: Rate: normal, Rhythm: regular, Edema: ankle edema, that is mild, JVD: is not appreciated. 19:40 Respiratory: the patient does not display signs of respiratory distress, Respirations: normal, no use of accessory muscles, no retractions, labored breathing, is not present, Breath sounds: are clear throughout, no decreased breath sounds. 19:40 Abdomen/GI: Inspection: abdomen appears normal, Palpation: abdomen is soft and non-tender, in all quadrants. 19:40 Skin: cellulitis, is not appreciated, no rash present. 19:40 Neuro: Orientation: to person, place \T\ time. Mentation: is normal, Motor: moves all fours, strength is normal. 23:42 ECG was reviewed by the Attending Physician. Vital Signs: 18:45 BP 131 / 71; Pulse 75; Resp 18 S; Temp 98.5(O); Pulse Ox 100% on R/A; aa5 20:00 BP 140 / 76; Pulse 78; Resp 16; Pulse Ox 100% on R/A; jb4 22:00 BP 150 / 67; Pulse 80; Resp 16; Pulse Ox 100% on R/A; jb4 23:30 BP 137 / 73; Pulse 80; Resp 16; Pulse Ox 100% on R/A; jb4 05/15 00:00 BP 130 / 67; Pulse 80; Resp 16; Pulse Ox 98% on R/A; jb4 MDM: 05/14 19:02 Patient medically screened. cp 22:00 Data reviewed: vital signs, nurses notes, lab test result(s), radiologic studies, cp ultrasound. 22:00 Counseling: I had a detailed discussion with the patient and/or guardian regarding: the cp historical points, exam findings, and any diagnostic results supporting the discharge/admit diagnosis, lab results, radiology results, the need for further work-up and treatment in the hospital. Physician consultation: Jacob BELLO was contacted at 22:00, regarding admission, to the telemetry unit. patient's condition. 05/14 19:28 Order name: BMP; Complete Time: 21:14 cp /18 21:18 Interpretation: Reviewed. 05/14 19:28 Order name: CPK; Complete Time: 21:14 cp 05/14 19:28 Order name: CBC with Diff; Complete Time: 20:46 cp 05/14 20:47 Interpretation: Normal except: RBC 2.52; HGB 7.3; HCT 21.3; MCV 84.8; PLT 142; ALMA% cp 88.2; LYM% 4.9; LYMA 0.4. 05/14 21:44 Order name: LFT's; Complete Time: 23:48 cp 05/14 23:48 Interpretation: Normal except: AST 50; ALK 203; TP 5.8; ALB 2.2; GLOB 3.6; A/G 0.6. 05/14 21:44 Order name: Magnesium; Complete Time: 23:48 cp 05/14 21:44 Order name: NT PRO-BNP; Complete Time: 23:48 cp 05/14 23:48 Interpretation: Abnormal: NT PRO-BNP > [id number]. 05/14 19:27 Order name: US Extremity Venous W Compression Tomasz; Complete Time: 21:38 cp 05/14 21:44 Order name: PT-INR; Complete Time: 23:48 cp 05/14 21:44 Order name: Troponin (emerg Dept Use Only); Complete Time: 23:48 cp 05/14 21:44 Order name: XRAY Chest (1 view) 05/14 21:44 Order name: EKG; Complete Time: 21:45 cp 05/14 22:05 Order name: ABG; Complete Time: 23:48 05/15 00:13 Order name: SARS-COV-2 RT PCR EDMS 05/14 21:44 Order name: Cardiac monitoring; Complete Time: 23:26 cp 18 21:44 Order name: EKG - Nurse/Tech; Complete Time: 23:40 cp 05/14 21:44 Order name: IV Saline Lock; Complete Time: 23:26 cp 05/14 21:44 Order name: Labs collected and sent; Complete Time: 23:26 cp 05/14 21:44 Order name: O2 Per Protocol; Complete Time: 23:26 05/14 21:44 Order name: O2 Sat Monitoring; Complete Time: 23:26 05/14 23:21 Order name: CONS Physician Consult EDMS EC:42 Rate is 80 beats/min. Rhythm is regular. OH interval is normal. QRS interval is normal. QT interval is normal. T waves are Inverted in leads I, II. Interpreted by me. Reviewed by me. Administered Medications: No medications were administered Disposition: 05/15 03:28 Co-signature as Attending Physician, Ean Villagomez MD. [email or web address] Disposition: 05/14/20 22:05 Hospitalization ordered by Ronan Virk for Inpatient Admission. Preliminary diagnosis is Unspecified kidney failure. - Bed requested for Telemetry/MedSurg (Inpatient). - Status is Inpatient Admission. - Condition is Stable. - Problem is new. - Symptoms have improved. Signatures: Dispatcher [employer] EDAR Suyapa Singh RN RN mw Calderon, Audri, RN RN aa5 Scott Charles PA PA Taylor Pastor Ean Villagomez MD MD [email or web address] Corrections: (The following items were deleted from the chart) 05/14 22:49 22:15 CORONAVIRUS+MR.LAB.ANNIZ ordered. EDAR EDMS 23:25 22:05 Hospitalization Ordered by Ronan Virk for Inpatient Admission. Preliminary diagnosis is Unspecified kidney failure. Bed requested for Telemetry/MedSurg (Inpatient). Status is Inpatient Admission. Condition is Stable. Problem is new. Symptoms have improved. 05/15 00:54 05/14 23:25 05/14/2020 22:05 Hospitalization Ordered by Ronan Virk for Inpatient Admission. Preliminary diagnosis is Unspecified kidney failure. Bed requested for Telemetry/MedSurg (Inpatient). Status is Inpatient Admission. Condition is Stable. Problem is new. Symptoms have improved.
--- NOTE | 2020-05-14 22:05 | ER ---
Nurse's Notes [facility] Name: Raphael Vega Age: 54 yrs Sex: Male : 1965 Arrival Date: 05/14/2020 Time: 18:27 Bed 14 Private MD: Diagnosis: Unspecified kidney failure Presentation: 05/14 18:45 Chief complaint: Patient states: mariano leg pain, headache, and mariano hand pain that began 1 aa5 week ago. Pt reports being seen here 04/26/20 and diagnosed with COVID-19. Pt also reports cough. Hoarse voice noted in triage, pt c/o sore throat. Coronavirus screen: Client presents with at least one sign or symptom that may indicate coronavirus-19. Standard/surgical mask placed on the client. Provider contacted for isolation considerations. Ebola Screen: Patient negative for fever greater than or equal to 101.5 degrees Fahrenheit, and additional compatible Ebola Virus Disease symptoms. Initial Sepsis Screen: Does the patient meet any 2 criteria? No. Patient's initial sepsis screen is negative. Does the patient have a suspected source of infection? No. Patient's initial sepsis screen is negative. Risk Assessment: Do you want to hurt yourself or someone else? Patient reports no desire to harm self or others. Onset of symptoms was April 2020. 18:45 Acuity: SMITHA 3 aa5 18:45 Method Of Arrival: Wheelchair aa5 Historical: - Allergies: 18:47 No Known Allergies; aa5 - PMHx: 18:47 Diabetes - NIDDM; Hypertension; Hypothyroidism; aa5 18:48 Kidney Failure on 04/26/20; aa5 - Immunization history:: Adult Immunizations unknown. - Social history:: Smoking status: Patient denies any tobacco usage or history of. Screenin:00 Abuse screen: Denies threats or abuse. Nutritional screening: No deficits noted. jb4 Tuberculosis screening: No symptoms or risk factors identified. Fall Risk None identified. Assessment: 19:00 General: Appears in no apparent distress. comfortable, Behavior is calm, cooperative, jb4 appropriate for age. Pain: Complains of pain in right leg and left leg Pain does not radiate. Pain currently is 4 out of 10 on a pain scale. Quality of pain is described as aching. Neuro: Level of Consciousness is awake, alert, obeys commands, Oriented to person, place, time, situation. Cardiovascular: Patient's skin is warm and dry. Respiratory: Airway is patent Respiratory effort is even, unlabored, Respiratory pattern is regular, symmetrical. GI: No signs and/or symptoms were reported involving the gastrointestinal system. : No signs and/or symptoms were reported regarding the genitourinary system. EENT: No signs and/or symptoms were reported regarding the EENT system. Derm: Skin is intact, Skin is pink, warm \T\ dry. Musculoskeletal: Circulation, motion, and sensation intact. Range of motion: intact in all extremities. 20:06 Reassessment: Patient appears in no apparent distress at this time. Patient and/or jb4 family updated on plan of care and expected duration. Pain level reassessed. Patient is alert, oriented x 3, equal unlabored respirations, skin warm/dry/pink. 21:00 Reassessment: Patient appears in no apparent distress at this time. Patient and/or jb4 family updated on plan of care and expected duration. Pain level reassessed. Patient is alert, oriented x 3, equal unlabored respirations, skin warm/dry/pink. 22:00 Reassessment: Patient appears in no apparent distress at this time. Patient and/or jb4 family updated on plan of care and expected duration. Pain level reassessed. Patient is alert, oriented x 3, equal unlabored respirations, skin warm/dry/pink. 23:00 Reassessment: Patient appears in no apparent distress at this time. Patient and/or jb4 family updated on plan of care and expected duration. Pain level reassessed. Patient is alert, oriented x 3, equal unlabored respirations, skin warm/dry/pink. 05/15 00:00 Reassessment: Patient appears in no apparent distress at this time. Patient and/or jb4 family updated on plan of care and expected duration. Pain level reassessed. Patient is alert, oriented x 3, equal unlabored respirations, skin warm/dry/pink. Vital Signs: 05/14 18:45 BP 131 / 71; Pulse 75; Resp 18 S; Temp 98.5(O); Pulse Ox 100% on R/A; aa5 20:00 BP 140 / 76; Pulse 78; Resp 16; Pulse Ox 100% on R/A; jb4 22:00 BP 150 / 67; Pulse 80; Resp 16; Pulse Ox 100% on R/A; jb4 23:30 BP 137 / 73; Pulse 80; Resp 16; Pulse Ox 100% on R/A; jb4 05/15 00:00 BP 130 / 67; Pulse 80; Resp 16; Pulse Ox 98% on R/A; jb4 ED Course: 05/14 18:27 Patient arrived in ED. rg4 18:40 Arm band placed on. aa5 18:46 Triage completed. aa5 18:58 Scott Charles PA is PHCP. cp 18:58 Jan Sherwood MD is Attending Physician. cp 19:00 Patient has correct armband on for positive identification. Bed in low position. Call jb4 light in reach. Side rails up X 1. Pulse ox on. NIBP on. 19:25 Ean Villagomez MD is Attending Physician. cp 19:27 Ernesto Savage, RN is Primary Nurse. jb4 19:40 Initial lab(s) drawn, by wy, sent to lab. jb4 20:38 Notified ED physician of a critical lab result(s). 7.3 Hgb, reported by Anitra, reported sg to Elvira BELLO. 21:00 Notified Nurse Practitioner and/or Physician Engine Builder of a critical lab result(s), sg abnormal creatinine. 21:19 US Extremity Venous W Compression Mariano In Process Unspecified. EDMS 22:04 Ronan Virk is Hospitalizing Provider. cp 22:09 XRAY Chest (1 view) In Process Unspecified. EDMS 22:50 COVID swab sent to lab. jp3 05/15 00:10 No provider procedures requiring assistance completed. Patient admitted, IV remains in jb4 place. Administered Medications: No medications were administered Outcome: 05/14 22:05 Decision to Hospitalize by Provider. cp 05/15 00:51 Admitted to Tele accompanied by tech, family with patient, via wheelchair, room 405, with chart, Report called to Oanh Pierce RN Condition: stable Instructed on the need for admit. 00:54 Patient left the ED. Signatures: Dispatcher [employer] EDMS Goldy Mon RN RN Giselle Zavala RN RN aa5 Scott Charles PA PA cp Netta Ndiaye 4 Ernesto Savage, RN RN jb Taylor Pastor Jacob jp3 Corrections: (The following items were deleted from the chart) 05/14 18:48 18:45 Chief complaint: Patient states: mariano leg pain, headache, and mariano hand pain that aa5 began 1 week ago. Pt reports being seen here 04/26/20 and diagnosed with COVID-19. Pt also reports cough. aa5
[2020-05-14 22:29] LABS: Arterial Blood Carboxyhemoglob 1.4 % (0-1.5); Blood Gas Oxyhemoglobin 93.7 % (94-97); Blood O2 Saturation 96.2 % (92-98.5)
[2020-05-14 23:20] LABS: Protime INR 1.03
[2020-05-14 23:45] LABS: ALT/SGPT 61 U/L (12-78); AST/SGOT 50 U/L (15-37); Albumin 2.2 g/dL (3.4-5.0); Alkaline Phosphatase 203 U/L (45-117); Bilirubin Direct 0.1 mg/dL (0-0.2); Bilirubin Total 0.4 mg/dL (0.2-1.0); Magnesium 3.5 mg/dL (1.8-2.4); NT PRO-BNP > 175000 pg/mL (<125); Protein, Total 5.8 g/dL (6.4-8.2); Troponin (Emerg Dept Use Only) 0.03 ng/mL (0.0-0.045)
--- NOTE | 2020-05-15 01:22 | P.HP ---
Certification for Inpatient Patient admitted to: Inpatient With expected LOS: >2 Midnights Patient will require the following post-hospital care: None Practitioner: I am a practitioner with admitting privileges, knowledge of patient current condition, hospital course, and medical plan of care. Services: Services provided to patient in accordance with Admission requirements found in Title 42 Section 412.3 of the Code of Federal Regulations <Annel Mcdowellshua - Last Filed: 05/15/20 01:15> Patient History Date of Service: 05/15/20 Primary Care Provider: None Reason for admission: Acute Renal failure, Uremia History of Present Illness: This is a 54-year-old female with a history of [id number] diabetes mellitus, hypertension, hypothyroidism, chronic kidney disease with dialysis that presented to the emergency room today for general body aches and not feeling well. Patient stated that he had last received dialysis on . Patient is indigent and has been receiving compassionate dialysis from various centers but no primary established care as of yet. Patient was worked up in the emergency room and found to have a white cell count of 8, hemoglobin is 7.3, hematocrit 21.3, platelet 142. Patient had sodium 135, potassium 3.4, chloride 96, bicarb 24, BUN 64136, creatinine 11, glucose 212. Patient's last renal function was drawn on April 26 and had a creatinine of 8.77 with a BUN of 81 at that time. Patient being admitted to telemetry floor for dialysis. Home medications list reviewed: Yes - Past Medical/Surgical History Has patient received pneumonia vaccine in the past: No Diabetic: Yes -: Chronic kidney disease -: Hypertension -: Diabetes -: Hypothyroidism - Social History Smoking Status: Never smoker Smoking therapy provided: No Alcohol use: No CD- Drugs: No Caffeine use: No Place of Residence: Home <Kade Mcdowell - Last Filed: 05/15/20 01:15> Date of Service: 05/15/20 - Family History Father Notes: Arthritis <christoph coronel - Last Filed: 05/15/20 11:07> Allergies No Known Drug Allergies Allergy (Verified 05/15/20 01:59) Unknown Home Medications: Furosemide [Lasix] 80 mg PO DAILY 30 Days #60 tab 12/14/19 Atenolol [Tenormin] 1 tab PO DAILY 05/15/20 Metoprolol Tartrate 1 tab PO BID 05/15/20 Review of Systems General: Weakness, Malaise Eyes: Unremarkable ENT: Unremarkable Respiratory: Unremarkable Cardiovascular: Unremarkable Gastrointestinal: Unremarkable Genitourinary: Unremarkable Musculoskeletal: Unremarkable Integumentary: Unremarkable Neurological: Unremarkable Lymphatics: Unremarkable <Kade Mcdowell - Last Filed: 05/15/20 01:15> Physical Examination - Vital Signs Temperature: 98.5 F Blood Pressure: 131/71 Pulse: 75 Respirations: 16 Pulse Ox (%): 100 (Room air) - Physical Exam General: Alert, In no apparent distress, Oriented x3, Cooperative HEENT: PERRLA, Mucous membr. moist/pink, EOMI Neck: Supple, 2+ carotid pulse no bruit, JVD not distended, No Thyromegaly Respiratory: Clear to auscultation bilaterally, Normal air movement Cardiovascular: No edema, Normal pulses, Regular rate/rhythm, Normal S1 S2, No gallops, No rubs, No murmurs Capillary refill: <2 Seconds Gastrointestinal: Normal bowel sounds, Soft and benign, Non-distended, No ascites, No tenderness, No masses, No rebound, No guarding Musculoskeletal: No clubbing, No swelling, No contractures, No erythema, No tenderness, No warmth Integumentary: No rashes, No breakdown, No significant lesion, No tenderness/swelling, No erythema, No warmth, No cyanosis Neurological: Normal speech, Normal strength at 5/5 x4 extr, Normal tone, Sensation intact, Cranial nerves 3-12 intact, Normal affect Lymphatics: No axilla or inguinal lymphadenopathy - Studies Laboratory Data (last 24 hrs) 05/14/20 23:00: PT 12.1, INR 1.03 05/14/20 23:00: Magnesium 3.5 H, Total Bilirubin 0.4, AST 50 H, ALT 61, Alkaline Phosphatase 203 H 05/14/20 19:40: WBC 8.0, Hgb 7.3 L*, Hct 21.3 L, Plt Count 142 L 05/14/20 19:40: Sodium 135 L, Potassium 3.4 L, BUN 181 H, Creatinine 11.00 H*, Glucose 212 H <Kade Mcdowell - Last Filed: 05/15/20 01:15> - Studies Laboratory Data (last 24 hrs) 05/14/20 23:00: PT 12.1, INR 1.03 05/14/20 23:00: Magnesium 3.5 H, Total Bilirubin 0.4, AST 50 H, ALT 61, Alkaline Phosphatase 203 H 05/14/20 19:40: WBC 8.0, Hgb 7.3 L*, Hct 21.3 L, Plt Count 142 L 05/14/20 19:40: Sodium 135 L, Potassium 3.4 L, BUN 181 H, Creatinine 11.00 H*, Glucose 212 H <christoph coronel - Last Filed: 05/15/20 11:07> Assessment and Plan - Problems (Diagnosis) (1) Acute kidney injury superimposed on chronic kidney disease Current Visit: Yes Status: Acute (2) Hypertension Current Visit: Yes Status: Chronic Qualifiers: Hypertension type: essential hypertension Qualified Code(s): I10 - Essential (primary) hypertension (3) Type 2 diabetes mellitus Current Visit: Yes Status: Chronic Qualifiers: Diabetes mellitus fdc insulin use: with fdc use Diabetes mellitus complication status: with kidney complications Diabetes mellitus c omplication detail: with chronic kidney disease Chronic kidney disease stage: on chronic dialysis Qualified Code(s): E11.22 - Type 2 diabetes mellitus with diabetic chronic kidney disease; N18.6 - End stage renal disease; Z79.4 - [facility] (current) use of insulin; Z99.2 - Dependence on renal dialysis - Plan 1. Patient admitted to telemetry floor for further monitoring and to have dialysis tomorrow morning 2. Patient will have labs drawn in the a.m. including to parathyroid hormone, uric acid, vitamin-D for further workup for renal dysfunction and associated disease processes 3. Glucose we managed as needed with q. 6 hr checks and insulin if blood glucose reaches threshold per protocol 4. Nephrology has been consulted for further evaluation and recommendations of worsening renal function 5. Will monitor hemoglobin for acute decompensation secondary to his renal function Discharge Plan: Home Plan to discharge in: 48 Hours - Advance Directives Does patient have a Living Will: No Does patient have a Durable POA for Healthcare: No - Code Status/Comfort Care Code Status Assessed: Yes Code Status: Full Code Critical Care: No Time Spent Managing Pts Care (In Minutes): 70 <Kade Mcdowell - Last Filed: 05/15/20 01:15> Physician Review: Patient Assessed, Agree with Above Assessment and Plan Physician Review Additional Text: End-stage renal disease on hemodialysis. Uremia COVID 19 infection. DM type 2 Plan: Nephrology consult for hemodialysis. Patient is asymptomatic from the COVID 19 infection. Insulin sliding scale for glucose management. <christoph coronel - Last Filed: 05/15/20 11:07>
[2020-05-15] MEDS ORDERED: D50W 25 GM/50 ML SYRINGE IV PRN (01:50)
[2020-05-15] MEDS ORDERED: ONDANSETRON 4 MG/2 ML VIAL IV PRN (01:50)
[2020-05-15] MEDS ORDERED: GLUCAGON 1 MG/VIAL IM PRN (01:50)
[2020-05-15 02:04] VITALS: BMI 23.6
[2020-05-15] MEDS: ACETAMINOPHEN 500 MG TAB PO PRN ×2 (02:40→16:26)
[2020-05-15 06:21] LABS: Absolute Lymphocytes (CBC) 0.4 K/uL (0.7-4.9); Basophils % 0.6 % (0-1.3); Lymphocytes % 6.3 % (15.3-44.8); MPV 10.6 fL (7.6-11.3); RBC Red Blood Cell Count 2.05 M/uL (4.33-5.43)
[2020-05-15 06:28] LABS: Hematocrit 17.1 % (39.6-49.0)
[2020-05-15 07:18] LABS: Potassium 3.2 mmol/L (3.5-5.1); Uric Acid 12.2 mg/dL (3.5-7.2)
[2020-05-15] MEDS: INSULIN -REGULAR HUMAN 50 UNIT/0.5 ML ML SQ SCH ×4 (08:28→20:47)
--- NOTE | 2020-05-15 08:37 | RAD REPORT ---
EXAM DESCRIPTION: RAD - Chest Single View - 05/14/2020 10:09 pm CLINICAL HISTORY: leg swelling, cough, shortness of breath COMPARISON: April 26 TECHNIQUE: AP portable chest image was obtained 05/14/2020 10:09 pm . FINDINGS: No dense consolidation or significant acute lung parenchymal process. Patchy alveolar opac ities seen on the April 26 study are not present on the current examination. Heart size and vascul ature are prominent. Interstitial markings overall are mildly prominent. Double-lumen dialysis cathet er present on the right unchanged in positioning. No measurable pleural effusion and no pneumothorax. No acute bony abnormality seen. No acute aortic findings suspected. IMPRESSION: No focal consolidation or significant airspace disease to suspect bacterial or viral pne umonia. Heart, vasculature and interstitial markings do suggest a mild failure or volume overload.
[2020-05-15] MEDS ORDERED: EPOETIN ALFA 10,000 UNIT/ML VIAL IV SCH (09:45)
[2020-05-15] MEDS ORDERED: NA CHLORIDE 0.9% 250 ML ONE (10:29)
[2020-05-15 10:49] LABS: MPV 10.2 fL (7.6-11.3); RBC Red Blood Cell Count 2.16 M/uL (4.33-5.43)
[2020-05-15 11:02] LABS: Hematocrit 18.3 % (39.6-49.0)
--- NOTE | 2020-05-15 11:13 | P.PN ---
Subjective Date of Service: 05/15/20 Primary Care Provider: None Chief Complaint: Acute Renal failure, Uremia Patient has no complain. His hemoglobin dropped to 5.9 this morning. Physical Examination - Vital Signs Temperature: 98.4 F Blood Pressure: 128/61 Pulse: 71 Respirations: 16 Pulse Ox (%): 97 - Physical Exam General: Alert, In no apparent distress HEENT: Mucous membr. moist/pink Neck: Supple, JVD not distended Respiratory: Clear to auscultation bilaterally, Normal air movement Cardiovascular: No edema, Regular rate/rhythm, Normal S1 S2 Gastrointestinal: Soft and benign, Non-distended, No tenderness Musculoskeletal: No swelling Integumentary: No rashes, No erythema Neurological: Normal strength at 5/5 x4 extr, Cranial nerves 3-12 intact - Studies Laboratory Data (last 24 hrs) 05/14/20 23:00: PT 12.1, INR 1.03 05/14/20 23:00: Magnesium 3.5 H, Total Bilirubin 0.4, AST 50 H, ALT 61, Alkaline Phosphatase 203 H 05/14/20 19:40: WBC 8.0, Hgb 7.3 L*, Hct 21.3 L, Plt Count 142 L 05/14/20 19:40: Sodium 135 L, Potassium 3.4 L, BUN 181 H, Creatinine 11.00 H*, Glucose 212 H Assessment And Plan - Current Problems (Diagnosis) (1) End-stage renal disease on hemodialysis Current Visit: Yes Status: Acute (2) Uremia Current Visit: Yes Status: Acute (3) Anemia in chronic kidney disease, on chronic dialysis Current Visit: Yes Status: Acute (4) Hypertension Current Visit: Yes Status: Chronic Qualifiers: Hypertension type: essential hypertension Qualified Code(s): I10 - Essential (primary) hypertension (5) Type 2 diabetes mellitus Current Visit: Yes Status: Chronic Qualifiers: Diabetes mellitus tank terminal gauger insulin use: with mcc use Diabetes mellitus complication status: with kidney complications Diabetes mellitus complication detail: with chronic kidney disease Chronic kidney disease stage: on chronic dialysis Qualified Code(s): E11.22 - Type 2 diabetes mellitus with diabetic chronic kidney disease; N18.6 - End stage renal disease; Z79.4 - prison (current) use of insulin; Z99.2 - Dependence on renal dialysis (6) COVID-19 virus infection Current Visit: Yes Status: Acute - Plan Patient scheduled for dialysis today. He will need 2 units of PRBC transfusion. 1 unit and transfused before dialysis, and the other during dialysis. Patient started on erythropoietin. Nephrology is managing. Patient is asymptomatic from the COVID 19 infection. Insulin sliding scale for glucose management.
--- NOTE | 2020-05-15 13:59 | EKG ---
Test Date: 2020-05-14 Test Time: 23:37:15 Manufacturing Group Leader: MEASUREMENT RESULTS: Intervals: Rate: 80 WI: 148 QRSD: 78 QT: 412 QTc: 475 [place]: P: 84 WI: 148 QRS: 28 T: 222 INTERPRETIVE STATEMENTS: Normal sinus rhythm Marked ST abnormality, possible inferior subendocardial injury Abnormal ECG Compared to ECG 04/26/2020 07:36:02 Possible ischemia no longer present Prolonged QT interval no longer present ST (T wave) deviation still present Electronically Signed On 05-15-20 13:58:15 SECURITIES COMPLIANCE EXAMINER by Keven Zamudio
[2020-05-15 21:54] LABS: Hematocrit 27.2 % (39.6-49.0)
[2020-05-16] MEDS: ACETAMINOPHEN 500 MG TAB PO PRN ×2 (01:43→19:49)
[2020-05-16 06:41] LABS: Absolute Lymphocytes (CBC) 0.2 K/uL (0.7-4.9); Basophils % 0.4 % (0-1.3); Hematocrit 24.3 % (39.6-49.0); Lymphocytes % 1.4 % (15.3-44.8); MPV 9.9 fL (7.6-11.3)
[2020-05-16 06:51] LABS: Potassium 3.2 mmol/L (3.5-5.1)
[2020-05-16] MEDS: INSULIN -REGULAR HUMAN 50 UNIT/0.5 ML ML SQ SCH ×4 (07:30→21:00)
[2020-05-16 09:08] LABS: Blood Morphology Comment NOT SEEN (NOT SEEN); Platelet Estimate ADEQ
--- NOTE | 2020-05-16 11:30 | P.PN ---
Subjective Date of Service: 05/16/20 Primary Care Provider: None Chief Complaint: Acute Renal failure, Uremia Patient has no complain. Status post 1 unit PRBC transfusion. Hemoglobin up to 8.1 Physical Examination - Vital Signs Temperature: 98.8 F Blood Pressure: 131/64 Pulse: 88 Respirations: 19 Pulse Ox (%): 99 - Physical Exam General: In no apparent distress, Oriented x3 Neck: JVD not distended Respiratory: Normal air movement Cardiovascular: No edema, Regular rate/rhythm Gastrointestinal: Soft and benign, Non-distended Musculoskeletal: No swelling Integumentary: No rashes Neurological: Normal speech, Normal strength at 5/5 x4 extr Assessment And Plan - Current Problems (Diagnosis) (1) End-stage renal disease on hemodialysis Current Visit: Yes Status: Acute (2) Uremia Current Visit: Yes Status: Acute (3) Anemia in chronic kidney disease, on chronic dialysis Current Visit: Yes Status: Acute (4) Hypertension Current Visit: Yes Status: Chronic Qualifiers: Hypertension type: essential hypertension Qualified Code(s): I10 - Essential (primary) hypertension (5) Type 2 diabetes mellitus Current Visit: Yes Status: Chronic Qualifiers: Diabetes mellitus superintendent container terminal insulin use: with nursing home use Diabetes mellitus complication status: with kidney complications Diabetes mellitus complication detail: with chronic kidney disease Chronic kidney disease stage: on chronic dialysis Qualified Code(s): E11.22 - Type 2 diabetes mellitus with diabetic chronic kidney disease; N18.6 - End stage renal disease; Z79.4 - [facility] (current) use of insulin; Z99.2 - Dependence on renal dialysis (6) COVID-19 virus infection Current Visit: Yes Status: Acute - Plan Status post hemodialysis yesterday. Status post 1 unit PRBC transfusion. Continue erythropoietin. Nephrology is managing. Further hemodialysis per nephrology. Patient is asymptomatic from the COVID 19 infection. Insulin sliding scale for glucose management.
--- NOTE | 2020-05-16 18:18 | CON ---
Date of Consultation: 05/15/2020 Chief Complaint: Acute kidney injury on chronic kidney disease, uremia. History Of Present Illness: The patient is a 54-year-old with history of diabetic kidney disease, hy pertension, hypertensive kidney and heart disease, hypothyroid, started on dialysis a few months ago, presented to the emergency room for generalized body aches and not feeling well, complained of malai se and fatigue. The patient was found to have severe hyperazotemia. BUN was up to 180 and creatinin e was 11, potassium level was 3.4, sodium 135, bicarbonate 24. The patient received emergent dialysi s to control uremia and due to severely elevated blood urea nitrogen, the patient had dialysis done w ith special procedure to prevent disequilibrium. The patient received 2 hours of dialysis treatment to control azotemia gradually. The patient is admitted to dialysis to telemetry floor for dialysis. Past Medical History: Chronic kidney disease, hypertension, diabetes mellitus, hypothyroid. Social History: Denies tobacco, alcohol, illicit drugs. Family History: And nephritis in his father. Review of Systems: General: Denies fever, chills. Eyes: Denies vision changes. Ears, nose, mouth, and Throat: Denies sore throat or earache. RESPIRATORY: Denies PND, orthopnea. CARDIOVASCULAR: Denies chest pain or palpitation. GI: Denies nausea or vomiting. : Denies dysuria, hematuria. All other systems reviewed and all are negative. Physical Examination: General: Alert, oriented and cooperative. Eyes: Anicteric sclerae. EOMI. Ears, Nose, Mouth, and throat: Oral mucosa moist. No pallor. Neck: Supple. No bruits. Lungs: Diminished breath sounds at bases. Heart: S1, S2. Abdomen: Soft, benign. Extremities: Slight edema in both ankles. Skin: Warm and dry. No cyanosis. Neurological: No tremor. Moving extremities. Laboratory Data: Potassium 3.4, sodium 145, BUN 181, creatinine 11, glucose 112, hemoglobin 7.3, mag nesium 3.5, AST 50. INR 1.03, PT 12.1. Impression And Plan: 1.Acute on chronic kidney injury, severe hyperazotemia, uremia. The patient will resume dialysis wi th 2 hours dialysis session to control the uremia gradually and preventing disequilibrium symptoms. 2.Diabetes mellitus. Continue insulin. 3.Hypertension. Continue blood pressure medication. 4.Generalized weakness. Workup per primary team. Recommend to check COVID test. AMBER/RAVI Voice ID: [id number] Report ID: [id number]
--- NOTE | 2020-05-16 22:03 | PN ---
Date of Progress Note: 05/16/2020 Chief Complaint: Lopkd-my-gsryqdr kidney injury. History Of Present Illness: The patient is dialysis dependent. He was found to have severe hyperazo temia. BUN was over 180, potassium level was 3.4. The patient was found to have hypokalemia and sev ere metabolic changes secondary to uremia. Dialysis was done with 2-hour session to control azotemia and gradual correction of azotemia. At this time, plan of treatment is to prevent disequilibrium. Review of Systems: Denies PND, orthopnea. Physical Examination: Lungs: Diminished breath sounds at bases. Heart: S1, S2. Abdomen: Soft, benign. Extremities: No cyanosis. Moving extremities. Impression And Plan: 1.Fnovj-lt-bbmseum kidney injury and uremia. The patient will resume dialysis tomorrow. Monitor el ectrolytes and adjust treatment accordingly. 2.Hypertension. Continue blood pressure medication. 3.Generalized weakness. COVID test is pending. EB/MODL Voice ID: [id number] Report ID: [id number]
[2020-05-17] MEDS: ACETAMINOPHEN 500 MG TAB PO PRN ×2 (02:00→08:35)
[2020-05-17 04:00] LABS: Absolute Lymphocytes (CBC) 0.2 K/uL (0.7-4.9); Hematocrit 27.1 % (39.6-49.0); Lymphocytes % 1.4 % (15.3-44.8); MPV 10.1 fL (7.6-11.3); RBC Red Blood Cell Count 3.22 M/uL (4.33-5.43)
[2020-05-17 04:23] LABS: Potassium 3.8 mmol/L (3.5-5.1)
[2020-05-17] MEDS: INSULIN -REGULAR HUMAN 50 UNIT/0.5 ML ML SQ SCH ×2 (07:30→11:30)
[2020-05-17 10:41] VITALS: O2SAT 95
--- NOTE | 2020-05-17 12:33 | P.DS ---
Admission Date: 05/14/20 Discharge Date: 05/17/20 Primary Care Provider: None Disposition: ROUTINE DISCHARGE Discharge Condition: FAIR Reason for Admission: Acute Renal failure, Uremia - Problems (1) End-stage renal disease on hemodialysis Current Visit: Yes Status: Acute (2) Uremia Current Visit: Yes Status: Acute (3) Anemia in chronic kidney disease, on chronic dialysis Current Visit: Yes Status: Acute (4) Hypertension Current Visit: Yes Status: Chronic Qualifiers: Hypertension type: essential hypertension Qualified Code(s): I10 - Essential (primary) hypertension (5) Type 2 diabetes mellitus Current Visit: Yes Status: Chronic Qualifiers: Diabetes mellitus detention insulin use: with detention use Diabetes mellitus complication status: with kidney complications Diabetes mellitus complication detail: with chronic kidney disease Chronic kidney disease stage: on chronic dialysis Qualified Code(s): E11.22 - Type 2 diabetes mellitus with diabetic chronic kidney disease; N18.6 - End stage renal disease; Z79.4 - detention (current) use of insulin; Z99.2 - Dependence on renal dialysis (6) COVID-19 virus infection Current Visit: Yes Status: Acute Brief History of Present Illness: 54-year-old Malay-speaking patient presented to the emergency department with a complaint of generalized body aches and malaise. Patient has end-stage renal disease and receives compassionate dialysis at various hospitals. He tested positive for COVID 19. His renal function was elevated above baseline. BUN of 181 and creatinine of 11. Patient was hospitalized for hemodialysis. Hospital Course: Patient admitted to the medical floor. He was asymptomatic from the COVID 19 infection. Patient was seen by nephrology Dr. Zavala and underwent 2 sessions of hemodialysis. Last hemodialysis was today. Patient deemed clinically stable for discharge. He is informed to follow with [facility]. Vital Signs/Physical Exam: Temp Pulse Resp BP Pulse Ox 99.4 F 87 17 132/72 95 05/17/20 08:00 05/17/20 08:00 05/17/20 08:00 05/17/20 08:00 05/17/20 08:00 General: Alert, In no apparent distress Neck: JVD not distended Respiratory: Clear to auscultation bilaterally, Normal air movement Cardiovascular: No edema, Regular rate/rhythm, Normal S1 S2 Gastrointestinal: Soft and benign, Non-distended Musculoskeletal: No swelling Integumentary: No rashes Neurological: Normal strength at 5/5 x4 extr Laboratory Data at Discharge: WBC 11.2 K/uL (4.3-10.9) H 05/17/20 03:18 Hgb 9.1 g/dL (13.6-17.9) L 05/17/20 03:18 Hct 27.1 % (39.6-49.0) L 05/17/20 03:18 Plt Count 131 K/uL (152-406) L 05/17/20 03:18 PT 12.1 SECONDS (9.5-12.5) 05/14/20 23:00 INR 1.03 05/14/20 23:00 Sodium 137 mmol/L (136-145) 05/17/20 03:18 Potassium 3.8 mmol/L (3.5-5.1) 05/17/20 03:18 BUN 120 mg/dL (7-18) H 05/17/20 03:18 Creatinine 8.44 mg/dL (0.55-1.3) H* 05/17/20 03:18 Glucose 96 mg/dL (74-106) 05/17/20 03:18 Uric Acid 12.2 mg/dL (3.5-7.2) H 05/15/20 05:58 Magnesium 3.5 mg/dL (1.8-2.4) H 05/14/20 23:00 Total Bilirubin 0.4 mg/dL (0.2-1.0) 05/14/20 23:00 AST 50 U/L (15-37) H 05/14/20 23:00 ALT 61 U/L (12-78) 05/14/20 23:00 Alkaline Phosphatase 203 U/L (45-117) H 05/14/20 23:00 Home Medications: Furosemide [Lasix*] 80 mg PO DAILY 30 Days #60 tab 12/14/19 Metoprolol Tartrate 1 tab PO BID 05/15/20 Epoetin [Retacrit] 10,000 unit IV EVERY HD vial 05/17/20 Diet: ADA Activity: Ad sosa Followup: Shelia Briscoe MD [Primary Care Provider] - 1-2 Weeks Time spent managing pt's care (in minutes): 34
[2020-05-17 13:32] VITALS: BP 138/79; TEMP 97.8
--- NOTE | 2020-05-17 21:25 | PN ---
Date of Progress Note: 05/17/2020 Chief Complaint: Acute on chronic kidney injury with severe hyperazotemia. Potassium was 3.4, altho ugh BUN was up to 180. History Of Present Illness: The patient underwent 2 hours treatment to correct hyperazotemia. Dialy sis session was adjusted to control azotemia and obtaining gradual correction of azotemia, prevent di sequilibrium. Review of Systems: Denies PND or orthopnea. Physical Examination: Lungs: Diminished breath sounds at bases. Heart: S1, S2. Abdomen: Soft, benign. Extremities: No cyanosis. Impression And Plan: 1.Acute on chronic kidney injury. Dialysis will be done today to control azotemia. BUN improved to 120. 2.Hypertension. Continue blood pressure medication. 3.Generalized weakness. COVID test is pending. EB/MODL Voice ID: [id number] Report ID: [id number]
[2020-05-18 11:25] LABS: Vitamin D 1,25-Dihydroxy Total 8 pg/mL (18-72); Vitamin D,1,25-OH2, D2 <8 pg/mL
[2020-05-19 18:54] LABS: HBsAG Nonreactive (Nonreactive)
== END 2020-05-17 14:00 | disposition home or self-care (01) | DRG 682 ==
LOC: ER 18:27 → 4TH 23:44
PROVIDERS: ADMIT Internal Medicine; ATTEND Internal Medicine
PROC: 5A1D70Z Performance of Urinary Filtration, Intermittent, Less than 6 Hours Per Day (ICD-10-PCS; principal; 2020-05-15)
PROC: 30233N1 Transfusion of Nonautologous Red Blood Cells into Peripheral Vein, Percutaneous Approach (ICD-10-PCS; 2020-05-15)
DX: N17.9 Acute kidney failure, unspecified (principal); U07.1 COVID-19; I12.0 Hypertensive chronic kidney disease with stage 5 chronic kidney disease or end stage renal disease; N18.6 End stage renal disease; D63.1 Anemia in chronic kidney disease; E87.6 Hypokalemia; E11.22 Type 2 diabetes mellitus with diabetic chronic kidney disease; Z99.2 Dependence on renal dialysis; Z79.899 Other long term (current) drug therapy
CPT/HCPCS: 36415; 36430; 71045; 80048; 80076; 82550; 82652; 82805; 82947; 83605; 83615; 83735; 83880; 83970; 84484; 84550; 85014; 85018; 85025; 85027; 85610; 86704; 86706; 86803; 86850; 86900; 86901; 87340; 90935; 93005; 93970; 99285; J1644; J2405; J7050; P9016; Q5105; U0003

== ENCOUNTER 2020-05-20 18:21 | Inpatient (IN) | payer SELFPAY ==
[2020-05-20] MEDS ORDERED: DIPHENHYDRAMINE 50 MG/ML VIAL ONE (20:02)
[2020-05-20] MEDS ORDERED: NA CHLORIDE 0.9% 2,000 ML ONE (20:02)
[2020-05-20 20:14] LABS: Absolute Lymphocytes (CBC) 0.1 K/uL (0.7-4.9); Basophils % 0.1 % (0-1.3); Hematocrit 27.8 % (39.6-49.0); Lymphocytes % 1.5 % (15.3-44.8); MPV 10.5 fL (7.6-11.3); RBC Red Blood Cell Count 3.28 M/uL (4.33-5.43)
[2020-05-20 20:17] LABS: Protime INR 1.13
[2020-05-20 20:40] LABS: Albumin 1.7 g/dL (3.4-5.0); Bilirubin Direct 1.5 mg/dL (0-0.2); Bilirubin Total 1.9 mg/dL (0.2-1.0); CKMB Creatine Kinase MB 4.5 ng/mL (0.3-3.6); Potassium 5.2 mmol/L (3.5-5.1); Protein, Total 5.8 g/dL (6.4-8.2)
[2020-05-20 20:44] LABS: Troponin (Emerg Dept Use Only) 0.84 ng/mL (0.0-0.045)
--- NOTE | 2020-05-20 21:01 | ER ---
Nurse's Notes [facility] Name: Raphael Vega Age: 54 yrs Sex: Male : 1965 Arrival Date: 05/20/2020 Time: 18:23 Bed 8 Private MD: Diagnosis: COVID 19 Infection;Sepsis;Dehydration;ESRD on Hemodialysis Presentation: 05/20 18:37 Coronavirus screen: Client denies travel out of the [place] in the last 14 days. fatigue, ll1 fever, muscle pain, nausea, Client presents with at least one sign or symptom that may indicate coronavirus-19. Standard/surgical mask placed on the client. Ebola Screen: Patient denies travel to an Ebola-affected area in the 21 days before illness onset. Initial Sepsis Screen: Does the patient meet any 2 criteria? Temp <36.0*C (96.8*F)) or > 38.3*C (100.9*F). HR > 90 bpm. Yes Does the patient have a suspected source of infection? Yes: Productive cough/pneumonia. Risk Assessment: Do you want to hurt yourself or someone else? Patient reports no desire to harm self or others. Onset of symptoms was May 14, 2020. 18:37 Method Of Arrival: Wheelchair ll1 18:37 Acuity: SMITHA 2 ll1 18:37 Chief complaint: Patient states: Continued fever, weakness, fatigue since being ll1 released from our hospital on Sunday. Tylenol 1 GM PO given in triage. Historical: - Allergies: 18:40 No Known Allergies; ll1 - PMHx: 18:40 Hypothyroidism; Kidney Failure on 04/26/20; Hypertension; Diabetes - NIDDM; ll1 - PSHx: 18:40 None; ll1 - Immunization history:: Flu vaccine status is unknown. - Social history:: Smoking status: Patient denies any tobacco usage or history of. Screenin:30 Abuse screen: Denies threats or abuse. Denies injuries from another. Nutritional wh screening: No deficits noted. Tuberculosis screening: No symptoms or risk factors identified. Fall Risk None identified. Assessment: 19:30 General: Appears in no apparent distress. uncomfortable, Behavior is cooperative, wh appropriate for age. Pain: Denies pain. Neuro: Level of Consciousness is awake, alert, obeys commands, Oriented to person, place, time. Neuro: Reports weakness. Cardiovascular: Capillary refill < 3 seconds. Respiratory: Airway is patent Respiratory effort is even, unlabored, Respiratory pattern is regular, symmetrical. GI: Abdomen is flat, non-distended. : No signs and/or symptoms were reported regarding the genitourinary system. EENT: No signs and/or symptoms were reported regarding the EENT system. Derm: Reports urticaria. Musculoskeletal: Circulation, motion, and sensation intact. Reports myalgia, generalized weakness. 21:00 Reassessment: Patient appears in no apparent distress at this time. No changes from previously documented assessment. Patient and/or family updated on plan of care and expected duration. Pain level reassessed. Patient is alert, oriented x 3, equal unlabored respirations, skin warm/dry/pink. 21:30 Reassessment: Provider at bedside explaining POC need for admit. 21:51 Reassessment: pt admission delayed, awaiting CT scan results prior to admission to [facility] per hospitalist order. 22:40 Reassessment: Patient appears in no apparent distress at this time. Patient and/or family updated on plan of care and expected duration. Pain level reassessed. Patient is alert, oriented x 3, equal unlabored respirations, skin warm/dry/pink. Vital Signs: 18:37 BP 112 / 67; Pulse 100; Resp 20; Temp 101.5; Weight 63.5 kg; Height 5 ft. 5 in. (165.10 ll1 cm); Pain 5/10; 18:58 Pulse Ox 94% on R/A; ll1 20:00 BP 127 / 75; Pulse 98; Resp 20; Pulse Ox 91% on R/A; wh 21:00 BP 115 / 68; Pulse 93; Resp 22; Pulse Ox 93% on 3 lpm NC; 21:30 BP 120 / 98; Pulse 95; Resp 22; Temp 98.3; Pulse Ox 92% on 3 lpm NC; 22:30 BP 115 / 60; Pulse 97; Resp 20; Pulse Ox 93% on 3 lpm NC; 18:37 Body Mass Index 23.30 (63.50 kg, 165.10 cm) ll1 ED Course: 18:23 Patient arrived in ED. as 18:39 Triage completed. ll1 18:40 Arm band placed on Patient placed in an exam room, on a stretcher. ll1 19:25 Ean Villagomez MD is Attending Physician. mh7 19:25 Adria Bauer NP is PHCP. pm1 19:28 Francisco Zelaya, KEIKO is Primary Nurse. rv 19:30 Patient has correct armband on for positive identification. Bed in low position. Call light in reach. Side rails up X 1. testboard operator on. Pulse ox on. NIBP on. 20:16 Chest Single View XRAY In Process Unspecified. EDMS 20:46 Notified ED physician of a critical lab result(s). Creatinine 8.99, AST 350, Trop 0.84. sg 20:55 Notified ED physician of a critical lab result(s). Lac 7.1. sg 20:59 Denis Narvaez DO is Hospitalizing Provider. mh7 21:32 Chest Abdomen Pelvis Wo Con CT In Process Unspecified. EDMS 22:03 No provider procedures requiring assistance completed. rv 22:44 Patient admitted, IV remains in place. Administered Medications: 18:58 Drug: Tylenol 1000 mg Route: PO; 1 21:51 Follow up: Response: No adverse reaction; Temperature is decreased 20:07 Drug: Benadryl 12.5 mg Route: IVP; Site: left forearm; 21:39 Follow up: Response: No adverse reaction; Marked relief of symptoms 20:08 Drug: NS 0.9% (30 ml/kg) 30 ml/kg {Note: Pt with Kidney Disease, notified provider. Order for 500 ml bolus.} Route: IV; Rate: bolus; Site: left forearm; 21:51 Follow up: Response: No adverse reaction; IV Status: Completed infusion 21:10 Drug: Zosyn 3.375 grams Route: IVPB; Infused Over: 60 mins; Site: left forearm; 21:51 Follow up: Response: No adverse reaction; IV Status: Completed infusion Outcome: 21:01 Decision to Hospitalize by Provider. 7 22:43 Admitted to Tele accompanied by tech, family with patient, via stretcher, with oxygen, with chart, Report called to Emelyn Olivares RN 22:43 Condition: stable 22:43 Instructed on the need for admit. 22:44 Patient left the ED. Signatures: Dispatcher [employer] EDMS Mon, Goldy, RN RN Rose Butler Patrick, WORKFLOW DEVELOPER WORKFLOW DEVELOPER pm1 Dawit, Francisco Castano RN RN rv Billy Galaviz RN RN ll1 Ean Villagomez MD MD 7
--- NOTE | 2020-05-20 21:01 | EDPHYS ---
Physician Documentation [facility] Name: Raphael Vega Age: 54 yrs Sex: Male : 1965 Arrival Date: 05/20/2020 Time: 18:23 Bed 8 Private MD: ED Physician Ean Villagomez HPI: 05/20 19:43 This 54 yrs old Male presents to ER via Wheelchair with complaints of Fever - mh7 covid+. 19:43 The patient reports fever, not measured (subjective). mh7 19:43 Onset: The symptoms/episode began/occurred 2 day(s) ago. Modifying factors: Recently mh7 hospitalized, Covid positive. Associated signs and symptoms: Pertinent positives: myalgias, skin rash, generalized fatigue/weakness, decreased appetitie, Pertinent negatives: abdominal pain, altered mental status, arthralgias, backache, chest pain, chills, cough, diarrhea, earache, headache, hemoptysis, night sweats, runny nose, sinus congestion, sinus drainage, shortness of breath, swelling, vomiting. Severity of symptoms: At their worst the symptoms were moderate yesterday, in the emergency department the symptoms are unchanged. The patient has been recently been admitted at [facility], was discharged earlier this week. Historical: - Allergies: 18:40 No Known Allergies; ll1 - PMHx: 18:40 Hypothyroidism; Kidney Failure on 04/26/20; Hypertension; Diabetes - NIDDM; ll1 - PSHx: 18:40 None; ll1 - Immunization history:: Flu vaccine status is unknown. - Social history:: Smoking status: Patient denies any tobacco usage or history of. ROS: 19:43 Eyes: Negative for injury, pain, redness, and discharge, ENT: Negative for injury, mh7 pain, and discharge, Neck: Negative for injury, pain, and swelling, Cardiovascular: Negative for chest pain, palpitations, and edema, Respiratory: Negative for shortness of breath, cough, wheezing, and pleuritic chest pain, Abdomen/GI: Negative for abdominal pain, nausea, vomiting, diarrhea, and constipation, Back: Negative for injury and pain, : Negative for injury, bleeding, discharge, and swelling, MS/Extremity: Negative for injury and deformity, Neuro: Negative for headache, weakness, numbness, tingling, and seizure, Psych: Negative for depression, anxiety, suicide ideation, homicidal ideation, and hallucinations, Allergy/Immunology: Negative for hives, rash, and allergies, Endocrine: Negative for neck swelling, polydipsia, polyuria, polyphagia, and marked weight changes, Hematologic/Lymphatic: Negative for swollen nodes, abnormal bleeding, and unusual bruising. Exam: 19:43 Head/Face: Normocephalic, atraumatic. Eyes: Pupils equal round and reactive to light, mh7 extra-ocular motions intact. Lids and lashes normal. Conjunctiva and sclera are non-icteric and not injected. Cornea within normal limits. Periorbital areas with no swelling, redness, or edema. Neck: Trachea midline, no thyromegaly or masses palpated, and no cervical lymphadenopathy. Supple, full range of motion without nuchal rigidity, or vertebral point tenderness. No Meningismus. Chest/axilla: Normal chest wall appearance and motion. Nontender with no deformity. No lesions are appreciated. Cardiovascular: Regular rate and rhythm with a normal S1 and S2. No gallops, murmurs, or rubs. Normal PMI, no JVD. No pulse deficits. Respiratory: Lungs have equal breath sounds bilaterally, clear to auscultation and percussion. No rales, rhonchi or wheezes noted. No increased work of breathing, no retractions or nasal flaring. Abdomen/GI: Soft, non-tender, with normal bowel sounds. No distension or tympany. No guarding or rebound. No evidence of tenderness throughout. Back: No spinal tenderness. No costovertebral tenderness. Full range of motion. MS/ Extremity: Pulses equal, no cyanosis. Neurovascular intact. Full, normal range of motion. Neuro: Awake and alert, GCS 15, oriented to person, place, time, and situation. Cranial nerves II-XII grossly intact. Motor strength 5/5 in all extremities. Sensory grossly intact. Cerebellar exam normal. Normal gait. Psych: Awake, alert, with orientation to person, place and time. Behavior, mood, and affect are within normal limits. 19:43 Constitutional: The patient appears in no acute distress, alert, awake, febrile, obviously ill. 19:43 Skin: rash can be described as urticarial, on the chest and abdomen. Vital Signs: 18:37 BP 112 / 67; Pulse 100; Resp 20; Temp 101.5; Weight 63.5 kg; Height 5 ft. 5 in. (165.10 ll1 cm); Pain 5/10; 18:58 Pulse Ox 94% on R/A; ll1 20:00 BP 127 / 75; Pulse 98; Resp 20; Pulse Ox 91% on R/A; wh 21:00 BP 115 / 68; Pulse 93; Resp 22; Pulse Ox 93% on 3 lpm NC; wh 21:30 BP 120 / 98; Pulse 95; Resp 22; Temp 98.3; Pulse Ox 92% on 3 lpm NC; wh 22:30 BP 115 / 60; Pulse 97; Resp 20; Pulse Ox 93% on 3 lpm NC; wh 18:37 Body Mass Index 23.30 (63.50 kg, 165.10 cm) ll1 MDM: 20:57 Differential diagnosis: viral Infection, bacterial infection, URI, bronchitis, mh7 pneumonia UTI. Data reviewed: vital signs, nurses notes, old medical records, lab test result(s), cardiac enzymes, CBC, electrolytes, urinalysis, EKG, radiologic studies, plain films. Data interpreted: Pulse oximetry: on room air is 94 %. Interpretation: acceptable. Counseling: I had a detailed discussion with the patient and/or guardian regarding: the historical points, exam findings, and any diagnostic results supporting the discharge/admit diagnosis, lab results, radiology results, the need for further work-up and treatment in the hospital. Response to treatment: the patient's symptoms have mildly improved after treatment. 21:00 Patient medically screened. [facility] 05/20 19:41 Order name: Amylase, Serum [facility] 05/20 19:41 Order name: Basic Metabolic Panel [facility] 05/20 19:41 Order name: Blood Culture Adult (2) [facility] 05/20 19:41 Order name: CBC with Diff [facility] 05/20 19:41 Order name: Ckmb; Complete Time: 20:47 [facility] 05/20 19:41 Order name: CPK; Complete Time: 20:47 [facility] 05/20 19:41 Order name: Lactate; Complete Time: 20:56 [facility] 05/20 19:41 Order name: LFT's; Complete Time: 20:47 [facility] 05/20 19:41 Order name: Lipase; Complete Time: 20:47 [facility] 05/20 19:41 Order name: Procalcitonin; Complete Time: 20:54 [facility] 24 19:41 Order name: Protime (+inr); Complete Time: 20:40 [facility] 05/20 19:41 Order name: Ptt, Activated; Complete Time: 20:40 [facility] 24 19:41 Order name: Troponin (emerg Dept Use Only); Complete Time: 20:47 [facility] 05/20 19:41 Order name: Urine Microscopic Only [facility] 05/20 19:41 Order name: Chest Single View XRAY; Complete Time: 21:15 [facility] 05/20 19:41 Order name: Rapid Strep; Complete Time: 20:40 [facility] 05/20 19:42 Order name: Amylase; Complete Time: 20:47 [facility] [place] 05/20 19:42 Order name: Basic Metabolic Panel; Complete Time: 20:47 [facility] 05/20 19:42 Order name: Blood Culture [facility] 05/20 19:42 Order name: CBC with Automated Diff; Complete Time: 21:15 [facility] 05/20 20:18 Order name: Glucose, Ancillary Testing; Complete Time: 20:21 [facility] 21:07 Order name: Chest Abdomen Pelvis Wo Con CT [facility] 05/20 21:12 Order name: CBC Smear Scan [facility] [place] 05/20 21:12 Order name: Throat Culture [facility] 05/20 21:40 Order name: COVID-19 05/20 22:03 Order name: CORONAVIRUS [facility] 05/20 22:43 Order name: Urine Dipstick--Ancillary (enter results) [facility] 05/20 19:41 Order name: Accucheck; Complete Time: 20:08 [facility] 05/20 19:41 Order name: Cardiac monitoring; Complete Time: 20:08 [facility] 05/20 19:41 Order name: EKG - Nurse/Tech; Complete Time: 20:08 [facility] 05/20 19:41 Order name: IV Saline Lock - Large Bore; Complete Time: 20:09 [facility] 05/20 19:41 Order name: Labs collected and sent; Complete Time: 20:09 [facility] 05/20 19:41 Order name: O2 Per Protocol; Complete Time: 20:09 [facility] 05/20 19:41 Order name: O2 Sat Monitoring; Complete Time: 20:09 [facility] Administered Medications: 18:58 Drug: Tylenol 1000 mg Route: PO; ll1 21:51 Follow up: Response: No adverse reaction; Temperature is decreased 20:07 Drug: Benadryl 12.5 mg Route: IVP; Site: left forearm; 21:39 Follow up: Response: No adverse reaction; Marked relief of symptoms 20:08 Drug: NS 0.9% (30 ml/kg) 30 ml/kg {Note: Pt with Kidney Disease, notified provider. Order for 500 ml bolus.} Route: IV; Rate: bolus; Site: left forearm; 21:51 Follow up: Response: No adverse reaction; IV Status: Completed infusion 21:10 Drug: Zosyn 3.375 grams Route: IVPB; Infused Over: 60 mins; Site: left forearm; 21:51 Follow up: Response: No adverse reaction; IV Status: Completed infusion Disposition: 05/20/20 21:01 Hospitalization ordered by Denis Narvaez for Inpatient Admission. Preliminary diagnosis are COVID 19 Infection, Sepsis, Dehydration, ESRD on Hemodialysis. - Bed requested for Telemetry/MedSurg (Inpatient). - Status is Inpatient Admission. - Condition is Fair. - Problem is an ongoing problem. - Symptoms have improved. Signatures: Dispatcher [employer] EDMS Marjorie Ndiaye RN RN Taylor Pastor Billy Galaviz RN RN ll1 Ean Villagomez MD MD mh7 Corrections: (The following items were deleted from the chart) 21:42 21:00 Hospitalization Ordered by Denis Narvaez DO for Inpatient Admission. Preliminary diagnosis is COVID 19 Infection; Sepsis; Dehydration; ESRD on Hemodialysis. Bed requested for Telemetry/MedSurg (Inpatient). Status is Inpatient Admission. Condition is Fair. Problem is an ongoing problem. Symptoms have improved. mh7 22:44 21:42 05/20/2020 21:01 Hospitalization Ordered by Denis Narvaez DO for Inpatient Admission. Preliminary diagnosis is COVID 19 Infection; Sepsis; Dehydration; ESRD on Hemodialysis. Bed requested for Telemetry/MedSurg (Inpatient). Status is Inpatient Admission. Condition is Fair. Problem is an ongoing problem. Symptoms have improved.
[2020-05-20 21:06] LABS: Blood Morphology Comment NOTED (NOT SEEN); Elliptocytes 1+; Hypochromasia 1+; Macrocytosis 2+; Platelet Estimate DECR; Poikilocytosis 2+; Teardrop Cell 1+; White Blood Cell Scan OK (OK)
[2020-05-20 21:07] LABS: Burr Cells 2+
--- NOTE | 2020-05-20 21:10 | RAD REPORT ---
EXAM DESCRIPTION: RAD - Chest Single View - 05/20/2020 8:17 pm CLINICAL HISTORY: FEVER Chest pain. COMPARISON: <Comparisons> FINDINGS: Portable technique limits examination quality. The lungs are grossly clear. The heart is moderately enlarged. Right-sided venous catheter its tip in the SVC. IMPRESSION: No acute intrathoracic process suspected.
[2020-05-20] MEDS ORDERED: PIPER/TAZO/NS 3.375gm 3.375 GM/100 ML BAG ONE (21:21)
--- NOTE | 2020-05-20 22:40 | P.HP ---
Certification for Inpatient Patient admitted to: Inpatient With expected LOS: >2 Midnights Patient will require the following post-hospital care: None Practitioner: I am a practitioner with admitting privileges, knowledge of patient current condition, hospital course, and medical plan of care. Services: Services provided to patient in accordance with Admission requirements found in Title 42 Section 412.3 of the Code of Federal Regulations Patient History Date of Service: 05/20/20 Primary Care Provider: None, Has seen Dr. Zavala in hospital for dialysis Reason for admission: Severe sepsis History of Present Illness: 54-year-old male with history of diabetes mellitus type 2, end-stage renal disease on hemodialysis with compassionate dialysis only at this time, hypertension presents emergency department for malaise, fatigue, fever, weakness. Patient was recently admitted to the hospital in need of dialysis and discharged on Sunday the . Patient received dialysis twice during previous admission and was deemed stable for discharge. Patient's workup in the emergency department revealed that he was septic and in need of dialysis. BUN 113 creatinine 8.99 GFR 6, lactic acid 7.1 pro calcitonin 44.49 white blood cell count 4.0 down from 11.2 at discharge, LFTs were also noted to be elevated which is new since his recent discharge. Patient also noted to have elevated troponin 0.8 patient's vital signs were unremarkable in the ED aside from fever. Chest x-ray without any acute findings but CT chest abdomen pelvis without contrast shows some pulmonary opacities. Patient still makes some urine, urine cath specimen currently pending. Patient was covered with Zosyn in the emergency department. No acute findings in the abdomen, abdomen is soft and nontender on examination. Suspect underlying pneumonia. Patient lives with his and son who help care for him but he is quickly becoming deconditioned and they are having a lot of difficulty at home. ED provider wishes to admit patient for further evaluation and management. When I saw the patient in the ER he was awake, alert, oriented x3. Vital signs were stable, patient does not appear significantly overloaded at this time. Nephrology was consulted to plan for dialysis tomorrow. Case was discussed with family, they were made aware that he is very sick at this time. Patient is full code. Suspect source of infection is likely pneumonia but possibly urinary tract infection as well. Patient is sepsis, current status severe sepsis due to end-organ damage. No septic shock at this time. Patient was given 500 cc normal saline bolus as he is a dialysis patient. Blood pressure stable. Allergies No Known Drug Allergies Allergy (Verified 05/15/20 01:59) Unknown Home Medications: Furosemide [Lasix*] 80 mg PO DAILY 30 Days #60 tab 12/14/19 Metoprolol Tartrate 1 tab PO BID 05/15/20 Epoetin [Retacrit] 10,000 unit IV EVERY HD vial 05/17/20 - Past Medical/Surgical History Diabetic: Yes -: Chronic kidney disease -: Hypertension -: Diabetes -: Hypothyroidism -: Dialysis catheter placement Psychosocial/ Personal History: Patient lives at home with his family, receives compassionate dialysis. - Family History Family History: Reviewed- Non-Contributory - Family History Father Notes: Arthritis - Social History Smoking Status: Unknown if ever smoked Alcohol use: No CD- Drugs: No Caffeine use: No Review of Systems 10-point ROS is otherwise unremarkable General: Fever, Chills, Sweats, Weakness, Malaise Respiratory: Shortness of Breath Physical Examination - Physical Exam General: Alert, In no apparent distress HEENT: Atraumatic, PERRLA, Mucous membr. moist/pink Neck: Supple, 2+ carotid pulse no bruit, No LAD Respiratory: Clear to auscultation bilaterally, Normal air movement Cardiovascular: Regular rate/rhythm, Normal S1 S2 Gastrointestinal: Normal bowel sounds, No tenderness Musculoskeletal: No tenderness Integumentary: No rashes Neurological: Normal speech, Normal tone, Normal affect, Abnormal strength (Patient very weak) - Studies Laboratory Data (last 24 hrs) 05/20/20 19:50: PT 13.3 H, INR 1.13, APTT 29.9 05/20/20 19:50: WBC 4.0 L D, Hgb 9.2 L, Hct 27.8 L, Plt Count 73 L D 05/20/20 19:50: Sodium 132 L, Potassium 5.2 H, BUN 113 H, Creatinine 8.99 H*, Glucose 146 H, Total Bilirubin 1.9 H, AST 350 H* D, ALT 159 H, Alkaline Phosphatase 267 H, Amylase 50, Lipase 98 Microbiology Data (last 24 hrs): 05/20/20 19:55 Throat Group A Streptococcus Rapid Screen - Final Assessment and Plan - Plan Assessment Severe sepsis with end-organ damage without septic shock secondary to pneumonia/possible UTI Uremia, azotemia, hyperkalemia secondary to end-stage renal disease with only compassion dialysis Elevated troponin, elevated liver function tests Anemia chronic disease Diabetes mellitus type 2 Hypertension Plan Severe sepsis with end-organ damage without septic shock secondary to pneumonia/possible UTI: Continue broad-spectrum antibiotics, vancomycin and cefepime. Patient given 500 cc bolus in the emergency department, does not appear overloaded at this time. Will continue with gentle boluses as necessary. Trend lactate 's, follow blood and urine cultures. Currently pending urine specimen collection as patient does make some small amounts of urine. Will repeat chest x-ray in the morning. DVT prophylaxis heparin 5000 subcutaneous twice daily. Uremia, azotemia, hyperkalemia secondary to end-stage renal disease with only compassion dialysis: Case was discussed with nephrology, plan will be for dialysis tomorrow. Will continue to monitor labs daily. Elevated troponin, elevated liver function tests: Trend troponins, repeat CMP with morning labs, obtain ultrasound right upper quadrant. Patient without any right upper quadrant pain or tenderness do not suspect cholecystitis or choledocholithiasis. Hepatitis panel ordered as well. Anemia chronic disease: Monitor H&H daily, transfuse for hemoglobin less than 7. Diabetes mellitus type 2: A.c. HS Accu-Cheks, sliding scale insulin therapy. Hypertension: Hold blood pressure medications at this time. Discharge Plan: Home Plan to discharge in: Greater than 2 days - Advance Directives Does patient have a Living Will: No Does patient have a Durable POA for Healthcare: No - Code Status/Comfort Care Code Status Assessed: Yes (Full code) Critical Care: No Time Spent Managing Pts Care (In Minutes): 55
[2020-05-20 23:21] LABS: Urine Blood 3+ (NEG); Urine Glucose TRACE (NEG); Urine Protein 3+ (NEG); Urine Specific Gravity 1.025 (1.005-1.030); Urine pH 6.5 (5.0-7.0)
[2020-05-20 23:24] LABS: Urine Amorphous Sediment 3+ /HPF (NONE SEEN); Urine Bacteria LOADED /HPF (NONE SEEN); Urine Mucus 2+ /HPF (NONE SEEN)
[2020-05-21] MEDS ORDERED: ONDANSETRON 4 MG/2 ML VIAL IV PRN (00:23)
[2020-05-21] MEDS ORDERED: ACETAMINOPHEN 500 MG TAB PO PRN (00:23)
[2020-05-21] MEDS ORDERED: D50W 50 ML IV ONE ×2 (00:52→00:55)
[2020-05-21] MEDS ORDERED: VANCOMYCIN 1.5 GM in NA CHLORIDE 0.9% 500 ML IVPB ONE (01:00)
[2020-05-21] MEDS: D50W 25 GM/50 ML SYRINGE IV PRN ×3 (01:00→08:37)
[2020-05-21] MEDS ORDERED: WATER FOR INJ,STERILE 10 ML IV ONE (01:00)
[2020-05-21] MEDS ORDERED: CEFEPIME 1 GM/VIAL IVP ONE (01:00)
[2020-05-21] MEDS ORDERED: CEFEPIME/SWI 1gm 10 ML IV ONE (01:15)
[2020-05-21] MEDS ORDERED: NA CHLORIDE 0.9% 250 ML IV PRN (01:16)
[2020-05-21] MEDS ORDERED: VANCOMYCIN 1 GM/VIAL ONE (01:17)
[2020-05-21] MEDS ORDERED: VANCOMYCIN 500 MG/VIAL ONE (01:18)
[2020-05-21] MEDS ORDERED: NA CHLORIDE 0.9% 0 ML ONE (01:20)
[2020-05-21] MEDS ORDERED: NA CHLORIDE 0.9% 250 ML IV ONE (01:31)
[2020-05-21] MEDS ORDERED: NA CHLORIDE 0.9% 250 ML ONE (01:31)
[2020-05-21] MEDS ORDERED: NA CHLORIDE 0.9% 500 ML ONE (01:34)
[2020-05-21 03:26] LABS: Absolute Lymphocytes (CBC) 0.1 K/uL (0.7-4.9); Basophils % 0.2 % (0-1.3); Hematocrit 24.7 % (39.6-49.0); Lymphocytes % 1.9 % (15.3-44.8); MPV 10.7 fL (7.6-11.3); RBC Red Blood Cell Count 2.85 M/uL (4.33-5.43)
--- NOTE | 2020-05-21 03:45 | P.INFCA ---
Sepsis Focused Assessment - Focused Assessment Complete? Sepsis Focused Assessment Completed?: Yes - Sepsis Screen Result Severe Sepsis: Positive Septic Shock: Negative - Evaluation Current stage of sepsis: Severe sepsis - Vital Signs Reviewed: Yes Temperature: 99.2 F Heart rate: 93 Blood Pressure: 97/56 Respiratory Rate: 20 O2 Sat by Pulse Oximetry: 98 - Examination Date exam was performed: 05/21/20 Time exam was performed: 01:30 Heart: Regular rate/rhythm Lungs: Clear bilaterally Peripheral pulses: 3+ Normal Peripheral pulse location: Radial Capillary refill: <2 Seconds Skin examination: Normal turgor
[2020-05-21 03:49] LABS: Albumin 1.5 g/dL (3.4-5.0); Bilirubin Total 2.1 mg/dL (0.2-1.0); Magnesium 2.8 mg/dL (1.8-2.4); Potassium 5.4 mmol/L (3.5-5.1); Protein, Total 4.9 g/dL (6.4-8.2)
[2020-05-21] MEDS: INSULIN -REGULAR HUMAN 50 UNIT/0.5 ML ML SQ SCH ×4 (07:30→20:49)
[2020-05-21] MEDS ORDERED: VANCOMYCIN 500 MG in NA CHLORIDE 0.9% 100 ML IVPB SCH (08:00)
[2020-05-21] MEDS ORDERED: NA CHLORIDE 0.9% 500 ML IV ONE (08:10)
[2020-05-21] MEDS ORDERED: HEPARIN 5000 UNIT/ML 1 ML VIAL SQ SCH (09:00)
[2020-05-21] MEDS: MIDODRINE HCL 5 MG TABLET PO SCH ×3 (09:00→20:50)
[2020-05-21] MEDS: NOREPINEPHRINE 4 MG in D5W 250 ML IV PRN (09:00)
[2020-05-21 09:51] LABS: Ferritin 2494.7 ng/mL (26-388)
[2020-05-21] MEDS ORDERED: D50W 25 GM/50 ML VIAL IV PRN (10:00)
[2020-05-21] MEDS ORDERED: DEXTROSE 10%-WATER 500 ML IV SCH (10:00)
[2020-05-21] MEDS ORDERED: LIDOCAINE 1% 20 ML MDV ONE (11:04)
--- NOTE | 2020-05-21 11:31 | P.CNS ---
Date of Consult: 05/21/20 Reason for Consult: hyperkalemia, ESRD Primary Care Provider: None, Has seen Dr. Zavala in hospital for dialysis Chief Complaint: Severe sepsis History of Present Illness: Pt is unable to provide, HX , HX obtained from chart 54-year-old male with history of ESRD on compassionate HD , diabetes mellitus type 2, , hypertension presents emergency department for malaise, fatigue, fever, weakness. pt was dishcarged on 21, he was admitted for dialysis pt have lactate of 9 , and procal of 44, today became hypotesnive and started on levophed Review of Systems: unable to provide Physical exam general: confused Neck; Supple, No elevated JVD hear: RRR, normal S1,2 no murmur or rub Chest: CTAB, no rlaes or wheezes Abdomen: Soft , Nt Extremities no edema A/P End-stage renal disease dialysis tomorrow , as pt need to be stablized renal dose meds monitor vanco level Hyperkalemia HD tomorrow severe Sepsis high procal, elevated lactic acid and hypoglycemia unclear source , possible urosepsis cont Abx Anemia of chronic disease will give epogen HTN on levophed now DM hypoglycemia Cont D10 total time spent 55min prognosis guarded Allergies No Known Drug Allergies Allergy (Verified 05/15/20 01:59) Unknown Home Medications: Furosemide [Lasix*] 80 mg PO DAILY 30 Days #60 tab 12/14/19 Metoprolol Tartrate 1 tab PO BID 05/15/20 Epoetin [Retacrit] 10,000 unit IV EVERY HD vial 05/17/20 - Past Medical/Surgical History Diabetic: Yes -: Chronic kidney disease -: Hypertension -: Diabetes -: Hypothyroidism -: Dialysis catheter placement Psychosocial/ Personal History: Patient lives at home with his family, receives compassionate dialysis. - Family History Father Notes: Arthritis - Social History Smoking Status: Current every day smoker Alcohol use: No CD- Drugs: No Caffeine use: No Place of Residence: Home Physical Examination Temp Pulse Resp BP Pulse Ox 98.8 F 91 H 26 H 104/72 100 05/21/20 10:35 05/21/20 11:00 05/21/20 11:00 05/21/20 11:00 05/21/20 11:00 Laboratory Data (last 24 hrs) 05/20/20 19:50: PT 13.3 H, INR 1.13, APTT 29.9 05/20/20 19:50: WBC 4.0 L D, Hgb 9.2 L, Hct 27.8 L, Plt Count 73 L D 05/20/20 19:50: Sodium 132 L, Potassium 5.2 H, BUN 113 H, Creatinine 8.99 H*, Glucose 146 H, Total Bilirubin 1.9 H, AST 350 H* D, ALT 159 H, Alkaline Phosphatase 267 H, Amylase 50, Lipase 98
--- NOTE | 2020-05-21 12:17 | P.OP ---
Preoperative diagnosis: Need for Central Venous Access Postoperative diagnosis: Need for Central Venous Access Primary procedure: Placement of LEFT femoral central line Secondary procedure: micro-introducer used Anesthesia: Local 1% lidocaine used Estimated blood loss: <5cc Specimen: none Findings: dark non-pulsatile blood returned Complications: None Implants: Triple lumen central line Transferred to: ICU Condition: Serious
--- NOTE | 2020-05-21 12:27 | P.PN ---
Subjective Date of Service: 05/21/20 Primary Care Provider: None, Has seen Dr. Zavala in hospital for dialysis Chief Complaint: Severe sepsis Subjective: Worsening (Patient hypotensive. Patient required transfer to ICU. Patient given IV fluid bolus. Levophed started. Spoke with pulmonology, nephrology. Central line placed by surgery.) Physical Examination - Vital Signs Temperature: 98.8 F Blood Pressure: 94/68 Pulse: 90 Respirations: 23 Pulse Ox (%): 100 - Physical Exam General: Alert, Cachectic, Other (Appears ill. Slight confusion noted.) HEENT: Atraumatic Neck: Supple Respiratory: Other (Patient on nasal cannula. Breath sounds clear) Cardiovascular: Normal pulses, Regular rate/rhythm Gastrointestinal: Normal bowel sounds, No masses, No rebound, No guarding Neurological: Normal speech, Normal strength at 5/5 x4 extr, Other (Patient appears very weak.) - Studies Laboratory Data (last 24 hrs) 05/20/20 19:50: PT 13.3 H, INR 1.13, APTT 29.9 05/20/20 19:50: WBC 4.0 L D, Hgb 9.2 L, Hct 27.8 L, Plt Count 73 L D 05/20/20 19:50: Sodium 132 L, Potassium 5.2 H, BUN 113 H, Creatinine 8.99 H*, Glucose 146 H, Total Bilirubin 1.9 H, AST 350 H* D, ALT 159 H, Alkaline Phosphatase 267 H, Amylase 50, Lipase 98 Microbiology Data (last 24 hrs): 05/20/20 19:55 Throat Group A Streptococcus Rapid Screen - Final Medications List Reviewed: Yes Assessment & Plan Discharge Plan: Home Plan to discharge in: Greater than 2 days Physician Review Additional Text: Impression: Septic shock with kidney/liver failure likely related to UTI with possible bacteremia complicated with COVID 19 End-stage renal disease with uremia, hyperkalemia Acute on chronic anemia Thrombocytopenia likely related to septic shock with possible vasculitis Diabetes mellitus type 2 with hypoglycemia Hypertension with septic shock Plan: Septic shock with kidney/liver failure likely related to UTI with possible bacteremia complicated with COVID 19: End-stage renal disease with uremia, hyperkalemia: Acute on chronic anemia: Thrombocytopenia likely related to septic shock with possible vasculitis Diabetes mellitus type 2 with hypoglycemia Hypertension with septic shock Acute on chronic anemia with thrombocytopenia- Plan Assessment Severe sepsis with end-organ damage without septic shock secondary to pneumonia/possible UTI Uremia, azotemia, hyperkalemia secondary to end-stage renal disease with only compassion dialysis Elevated troponin, elevated liver function tests Anemia chronic disease Diabetes mellitus type 2 Hypertension Plan Severe sepsis with end-organ damage without septic shock secondary to pneumonia/possible UTI: Continue broad-spectrum antibiotics, vancomycin and cefepime. Patient given 500 cc bolus in the emergency department, does not appear overloaded at this time. Will continue with gentle boluses as necessary. Trend lactate 's, follow blood and urine cultures. Currently pending urine specimen collection as patient does make some small amounts of urine. Will repeat chest x-ray in the morning. DVT prophylaxis heparin 5000 subcutaneous twice daily. Uremia, azotemia, hyperkalemia secondary to end-stage renal disease with only compassion dialysis: Case was discussed with nephrology, plan will be for dialysis tomorrow. Will continue to monitor labs daily. Elevated troponin, elevated liver function tests: Trend troponins, repeat CMP with morning labs, obtain ultrasound right upper quadrant. Patient without any right upper quadrant pain or tenderness do not suspect cholecystitis or choledocholithiasis. Hepatitis panel ordered as well. Anemia chronic disease: Monitor H&H daily, transfuse for hemoglobin less than 7. Diabetes mellitus type 2: A.c. HS Accu-Cheks, sliding scale insulin therapy. Hypertension: Hold blood pressure medications at this time. Discharge Plan: Home Plan to discharge in: Greater than 2 days - Advance Directives Does patient have a Living Will: No Patient seen. Case discussed in detail with nurse practitioner earlier. Please see note for details. Patient be transferred to ICU. Time Spent Managing Pts Care (In Minutes): 55
--- NOTE | 2020-05-21 12:29 | RAD REPORT ---
EXAM DESCRIPTION: CT CHEST, ABDOMEN AND PELVIS WITHOUT CONTRAST CLINICAL HISTORY: Sepsis, muscle pain, nausea, fever, history of kidney failure. COVID positive. COMPARISON: None. TECHNIQUE: Volumetric CT acquisition of the abdomen and pelvis without the intravenous administratio n contrast. Axial, coronal and sagittal reconstructions. Oral contrast: None CT Radiation Dose DLP 734 mGy-cm AEC, mA/kV adjustment by patient size, and/or iterative reconstruction technique were used, per [facility] dose-optimization program. FINDINGS: CT chest without contrast: Lines and tubes: Right IJ central line. Lower neck: Visualized portions are unremarkable. Heart: Enlarged. Decrease attenuation of the left ventricular luminal blood pool is consistent with a nemia. Vasculature: Noncontrast appearance is grossly unremarkable. Lymph Nodes: There is no hilar, mediastinal, axillary, or internal mammary lymphadenopathy. Lungs: The trachea and major bronchi are patent. Bilateral pleural effusions greater on the right. Pa tchy areas of infiltrates are noted in the superior segment of both lower lobes, greater on the left. Nonspecific increased interstitial markings are also seen in the upper lobes. CT abdomen and pelvis without contrast: Evaluation of the solid organs is limited by lack of intravenous contrast. Liver and biliary tree: Normal. Gallbladder: Normal. No CT evidence of gallstones. Pancreas: Normal. Spleen: Normal. Adrenals: Normal. Kidneys and ureters: Tiny 1 to 2 mm renal calculi bilaterally. No hydronephrosis. Bladder: Slightly thick-walled but underdistended. Reproductive organs: Normal. Gastrointestinal tract: Unremarkable with normal caliber. Appendix: Normal Peritoneum and retroperitoneum: No ascites or free air. Lymph nodes: No pathologic adenopathy. Vasculature: Unremarkable. Bones: No acute abnormality. Marginal osteophyte formation is noted in the left SI joint. Soft tissues: Unremarkable. IMPRESSION: Generalized evidence of anemia. Bilateral pleural effusions. Patchy areas of infiltrates bilaterally. Tiny 1 to 2 mm renal calculi versus vascular calcifications. SL: [phone] Electronically signed by: Joana Stallings MD 05/20/2020 9:49 PM [employer] Due to temporary technical issues with the PACS/Fluency reporting system, reports are being signed by the in house radiologists without review as a courtesy to insure prompt reporting. The interpreting radiologist is fully responsible for the content of the report.
--- NOTE | 2020-05-21 13:08 | OP ---
Date of Procedure: 05/21/2020 Surgeon: Larry Smith MD, Preoperative Diagnosis: Need for central venous access. Postoperative Diagnosis: Need for central venous access. Procedure Performed: Placement of left femoral central line. Secondary procedure was microintroduce r was used. Anesthesia: Lidocaine 1% utilized without epinephrine. Estimated Blood Loss: Less than 5 cc. Specimen: None. Findings: Dark nonpulsatile blood return. Complications: None. Implants: Triple-lumen central venous catheter placed in the left femoral position. The patient will remain in Intensive Care Unit in serious condition throughout the procedure. Procedure In Detail: After informed consent was obtained, patient was prepped and draped in the usua l sterile fashion. After adequate anesthesia was achieved, I palpated anatomic landmarks of the left femoral vein and using a microintroducer set, I anesthetized the skin, made cannulation of left femo ral vein on the first attempt without evidence of complication. Dark red, nonpulsatile blood return. The microwire was advanced into the lumen at this point and the needle was removed. A small criselda i ncision made over the insertion site and the microintroducer sheath was placed at this time using Penelope michelle technique. At this point, the microwire was removed. The inner cannula of the introducer she ath was removed and a standard wire was then advanced easily without evidence of complication. At th is point, the introducer sheath was removed. Sequential dilatation was performed using Seldinger maricel hnique and the catheter was placed in the center vein without evidence of complication. All 3 ports pulled back dark red nonpulsatile blood. The wire out was called for the second time and they were a ll flushed with saline and sealed at this time. At this point, the groin was cleansed and the cathet er secured to the skin using the 2-0 silk suture and sterile dressing placed over top. The patient t olerated the procedure well without evidence of any complication and remained in the Intensive Care U nit in serious condition throughout the procedure. All counts were correct at the end of the case. TK/MODL Voice ID: [id number] Report ID: [id number]
[2020-05-21 13:09] LABS: Protime INR 1.64
--- NOTE | 2020-05-21 13:23 | CON ---
Date of Consultation: 05/21/2020 Reason For Consultation: Need for central venous access. The patient requires IV antibiotics and pr essor support Brief History Of Present Illness: The patient is a 54-year-old male with a history of diabe fariha, ESRD on hemodialysis. His only compliant with dialysis intermittently. He presents to the [facility] department with malaise, fever, and weakness, admitted with need for dialysis and discharged on . He was seen with evidence of sepsis and septic shock, possibly from multifactorial. He was found to be COVID positive during his admission as well. I was consulted for the above-stated issues. The patient is nonverbal at this point and confused. As such, information was obtained fro m chart. Past Medical History: CKD, hypertension, diabetes, hypothyroidism, dialysis catheter placement. Past Surgical History: Unable to obtain. Allergies: NO KNOWN DRUG ALLERGIES. Home Medications: Include Lasix, metoprolol, and Epogen. Social History: Unable to obtain. Review of Systems: Unable to obtain. Physical Examination: Vital Signs: At the time of my examination, his blood pressure 94/68 on 2 mcg of Levophed. His puls e was 90, respiratory rate 23, temperature 98.8. General: He is awake, but confused and somewhat lethargic. HEENT: Otherwise normocephalic. His sclerae were anicteric. His mucous membranes were moist. Neck: Supple without JVD. Chest: Normal expansion and excursion. Decreased breath sounds bilaterally. ABDOMEN: Soft. On focused examination, groins were clear without any evidence of previous surgery. Laboratory Data: Reveals a white blood count of 4.9, hemoglobin of 7.9 over hematocrit of 24.7, plat elet count 54 down from 73 on admission. Neutrophils are 92%. His sodium 134, potassium 5.4, chlori de 96, carbon dioxide 17, BUN 120, creatinine 9.1, glucose is 230. Lactic acid was 7.0 on admission. Magnesium is 2.8. Ferritin . Total bilirubin 2.1, AST 429, ALT 191, alkaline phosphatas e is 201. Troponin 0.84. Followup troponin 1.8. CRP was 336. His lipase is 98. Procalcitonin is 40. His UA showed loaded bacteria, white blood cells, some red blood cells as well. He had imaging performed including a CT of the chest, abdomen, pelvis, which showed generalized evidence of anemia, bilateral pleural effusions, patchy area of infiltrates bilaterally, 1 to 2 mm renal calculi versus v ascular calcifications. His chest x-ray officially read as no acute intrathoracic process suspected. Assessment And Plan: This is a 54-year-old male who is COVID positive, who is in septic shock requir ing pressor support and multi-system organ failures with poor prognosis. 1.I have explained with Dr. Narvaez, the risks, benefits, and alternatives of placement of a femoral central venous access for the purpose of medication administration including but not limited to bleed ing, infection, damage to surrounding tissues, injury to vital structures, need further operation and procedures. The patient agrees to proceed as indicated. Thank you for this interesting consult. KRISTA/RAVI Voice ID: [id number] Report ID: [id number]
[2020-05-21] MEDS: CEFEPIME/SWI 1gm 10 ML IVP SCH (13:26)
--- NOTE | 2020-05-21 14:24 | CON ---
Date of Consultation: 05/21/2020 Reason For Consultation: Elevated troponin. History Of Present Illness: A 54-year-old male with history of diabetes, end-stage renal disease on dialysis, hypertension, presented to the emergency room on the in the need for dialys is, had dialysis twice and then the patient was noted to have elevated troponin. Did not have any ch est pain, however, he apparently became septic throughout this hospital stay and transferred to ICU a nd started on pressors. His troponin peaked at 1.8. The patient denies having any chest pain. Also was diagnosed with, he tested positive for COVID-19 as per records. Past Medical History: As outlined above in HPI. Medications: Refer to reconciliation sheet for detailed list. Allergies: NO KNOWN DRUG ALLERGIES. Family History: No premature coronary artery disease or cancer. Review of Systems: All systems were reviewed and they were negative except what mentioned in the HPI. Physical Examination: Vital Signs: Temperature is 98.8, pulse 90, breathing at 23, blood pressure is 94/68, saturating 100 %. General: Middle-aged male, no distress. Head and Neck: Pupils are equal, reactive to light. Intact eye movements. No JVD. No cervical lym phadenopathy. Neck is supple. Thyroid is not enlarged. Lungs: Rhonchi bilaterally. Heart: Regular rate and rhythm. No extra sounds. Abdomen: Soft, nontender. Bowel sounds positive. No organomegaly. No masses or hernia. No rigidi ty or rebound. Extremities: No edema, clubbing, cyanosis. Intact pulses. Skin: No rash noted. Neurologic: He is confused. No focal deficits appreciated. Investigations: Lactic acid today is 11.5. Troponin last measurement was 1.8. White blood cell cou nt 4.9, hemoglobin 7.9. EKG without acute specific abnormalities. Assessment/plan: Elevated troponin, suggesting a non-ST elevation myocardial infarction. This could be a demand ischemia. However, the patient has significant risk factors for coronary artery disease as well. Recommend to obtain echocardiogram and further trend the troponin until it peaks and goes down. Recommend aspirin and Plavix as well as anticoagulation with IV heparin, if there is no contra indication. We will monitor the patient until the COVID condition completely resolves. The patient will require further ischemic workup once his condition is stable. Recommend a nuclear stress test a nd echocardiogram as above and further plan accordingly. Thank you for the consultation. /RAVI Voice ID: [id number] Report ID: [id number]
[2020-05-21] MEDS ORDERED: PNEUMOCOCCAL VACCINE 0.5 ML IMVAC ONE (15:00)
--- NOTE | 2020-05-21 15:58 | RAD REPORT ---
EXAM DESCRIPTION: US - Abdomen Exam Limited - 05/21/2020 3:47 pm CLINICAL HISTORY: elev. ast/alt Abdominal pain COMPARISON: Renal Ultrasound-Complete dated 12/13/2019 FINDINGS: The gallbladder demonstrates no gallstones. No pericholecystic fluid or gallbladder wall t hickening. The common bile duct is normal measuring 4 mm. The liver demonstrates no findings of intrahepatic biliary dilatation. Trace fluid is noted along the right hepatic edge. IMPRESSION: Negative gallbladder/ biliary tree findings.
--- NOTE | 2020-05-21 16:49 | P.PN ---
Subjective Date of Service: 05/21/20 Primary Care Provider: None, Has seen Dr. Zavala in hospital for dialysis Chief Complaint: Severe sepsis Subjective: Other (Patient transferred to ICU due to hypotension.) Physical Examination - Vital Signs Temperature: 97.9 F Blood Pressure: 92/56 Pulse: 89 Respirations: 27 Pulse Ox (%): 100 - Physical Exam General: Alert, Cooperative, Disheveled, Other (Increased fatigue) HEENT: Atraumatic, Other (Dry mucous membranes) Neck: Supple (Try meets membranes) Respiratory: Clear to auscultation bilaterally Cardiovascular: Normal pulses, Regular rate/rhythm Gastrointestinal: Normal bowel sounds, No masses, No rebound, No guarding Integumentary: Other (Minimal petechiae noted. Cool extremities) Neurological: Normal speech, Normal strength at 5/5 x4 extr, Normal tone, Abnormal affect (Flat affect) - Studies Laboratory Data (last 24 hrs) 05/20/20 19:50: PT 13.3 H, INR 1.13, APTT 29.9 05/20/20 19:50: WBC 4.0 L D, Hgb 9.2 L, Hct 27.8 L, Plt Count 73 L D 05/20/20 19:50: Sodium 132 L, Potassium 5.2 H, BUN 113 H, Creatinine 8.99 H*, Glucose 146 H, Total Bilirubin 1.9 H, AST 350 H* D, ALT 159 H, Alkaline Phosphatase 267 H, Amylase 50, Lipase 98 Microbiology Data (last 24 hrs): 05/20/20 19:55 Throat Group A Streptococcus Rapid Screen - Final Medications List Reviewed: Yes Assessment & Plan Discharge Plan: Home Plan to discharge in: Greater than 2 days Physician Review Additional Text: Impression: Septic shock with kidney/liver failure secondary to UTI with possible bacteremia complicated with bilateral COVID 19/NSTEMI/end-stage renal disease End-stage renal disease with uremia, hyperkalemia NSTEMI likely underlying CAD Acute on chronic anemia Thrombocytopenia likely related to septic shock with possible vasculitis Diabetes mellitus type 2 with hypoglycemia Hypertension with septic shock Elevated liver function suspect acute liver failure related to above Plan: Septic shock with kidney/liver failure likely related to UTI with possible bacteremia complicated with bilateral COVID 19: Patient transferred to ICU. Patient was given fluid bolus. Case discussed with pulmonology and nephrology. Patient started on Levophed to maintain map of 65. Will try not to overload due to multiple factors including COVID. Continue with IV cefepime and vancomycin. Blood, urine cultures obtained. Will cover for pneumonia and UTI. Will rule out bacteremia. Will start IV Solu-Medrol. Patient also with NSTEMI. Cardiology consulted. Cannot anticoagulate at this time due to thrombocytopenia. Will monitor this closely. Patient with end-organ damage including renal, liver. Advanced care planning address in detail. Patient desires to be full code. Case discussed with concerning patient's condition-critical. Will provide supplementation. Encourage oral intake. I will turn the service over to the hospitalist team tomorrow. I will go plan of care with him. End-stage renal disease with uremia, hyperkalemia: Patient given IV fluid bolus. Case discussed with nephrology. No need for dialysis today PICC. Dialysis planned for tomorrow. Surgeon consulted for central line. NSTEMI likely underlying CAD: Cardiology consulted. Cardiology would recommend anticoagulation therapy but due to current status will hold off. No need for intervention at this time. Ideally patient would require aspirin and Plavix. Patient will need to be treated initially for his infectious process pay for any intervention. Acute on chronic anemia: Will monitor this closely. May require transfusion if hemoglobin below 7. Thrombocytopenia likely related to septic shock with possible vasculitis: Case discussed with hematology. Patient with NSTEMI. Will need to hold off on anti coagulation therapy due to low platelets. Will need to monitor this closely. Patient may require platelets if patient starts to bleed. Diabetes mellitus type 2 with hypoglycemia: Accu-Cheks in place. Patient on sliding scale pre Hypertension with septic shock: Hold blood pressure medication. Continue as above. Elevated liver function suspect acute liver failure related to above: Monitor liver function. Will check hepatitis panel.. Time Spent Managing Pts Care (In Minutes): 65
[2020-05-21] MEDS ORDERED: MELATONIN 3 MG TABLET PO PRN (16:51)
[2020-05-21] MEDS: METHYLPREDNISOLONE 125 MG INJ IV SCH (20:50)
[2020-05-21] MEDS: ASCORBIC ACID 500 MG TABLET PO SCH (20:50)
[2020-05-21] MEDS ORDERED: VANCOMYCIN/NS 1 gm 1 GM/250 ML BAG IVPB SCH (22:30)
[2020-05-21] MEDS ORDERED: CEFEPIME 1 GM/VIAL IV SCH (23:30)
[2020-05-22] MEDS ORDERED: CEFEPIME/SWI 1gm 10 ML IVP SCH (01:00)
[2020-05-22 05:55] LABS: Absolute Lymphocytes (CBC) 0.3 K/uL (0.7-4.9); Basophils % 1.5 % (0-1.3); Hematocrit 27.3 % (39.6-49.0); Lymphocytes % 2.3 % (15.3-44.8); MPV 11.7 fL (7.6-11.3)
[2020-05-22 06:55] LABS: ALT/SGPT 1387 U/L (12-78); AST/SGOT 2574 U/L (15-37); Albumin 1.3 g/dL (3.4-5.0); Alkaline Phosphatase 211 U/L (45-117); BUN Blood Urea Nitrogen 138 mg/dL (7-18); Bicarbonate 16 mmol/L (21-32); Bilirubin Total 3.4 mg/dL (0.2-1.0); Ferritin 4658.1 ng/mL (26-388); Glucose Level 89 mg/dL (74-106); Magnesium 2.8 mg/dL (1.8-2.4); Protein, Total 4.8 g/dL (6.4-8.2); Sodium Level 132 mmol/L (136-145)
[2020-05-22 07:04] LABS: Potassium 6.7 mmol/L (3.5-5.1)
[2020-05-22] MEDS: INSULIN -REGULAR HUMAN 50 UNIT/0.5 ML ML SQ SCH ×4 (07:30→20:32)
[2020-05-22] MEDS: ALBUMIN HUMAN 25% 100 ML IV ONE ×2 (08:37→09:51)
[2020-05-22] MEDS ORDERED: FAMOTIDINE 20 MG TAB PO SCH (09:00)
[2020-05-22] MEDS: VITAMIN D 1000 UNIT TAB PO SCH (09:00)
[2020-05-22] MEDS: FOLIC ACID 1 MG TABLET PO SCH (09:00)
[2020-05-22] MEDS: MIDODRINE HCL 5 MG TABLET PO SCH ×3 (09:00→20:33)
[2020-05-22] MEDS: THIAMINE HCL 100 MG TABLET PO SCH (09:00)
[2020-05-22] MEDS: ASCORBIC ACID 500 MG TABLET PO SCH ×3 (09:00→20:33)
[2020-05-22] MEDS: CEFEPIME/SWI 1gm 10 ML IVP SCH (09:25)
[2020-05-22] MEDS: METHYLPREDNISOLONE 125 MG INJ IV SCH ×3 (09:26→20:35)
[2020-05-22 09:31] LABS: Blood Morphology Comment NOT SEEN (NOT SEEN); Dohle Bodies PRESENT; Platelet Estimate DECR
--- NOTE | 2020-05-22 10:14 | P.PN ---
Subjective Date of Service: 05/22/20 Primary Care Provider: None, Has seen Dr. Zavala in hospital for dialysis Chief Complaint: Severe sepsis Subjective: No new changes (pt off levophed overnight. still unresponsive, grimaces to touch / movement) Review of Systems is unable to be obtained Physical Examination - Vital Signs Temperature: 97.8 F Blood Pressure: 99/67 Pulse: 78 Respirations: 26 Pulse Ox (%): 100 - Physical Exam General: Unresponsive (grimaces to pain) HEENT: Atraumatic Respiratory: Crackles/rales (bilaterally. on 2 L NC) Cardiovascular: Regular rate/rhythm, Edema Gastrointestinal: Soft and benign, Tenderness (pt with some grimacing on palpation of abdomen) Integumentary: Other (dusky fingertips on b/l hands. none on b/l toes) Neurological: Other (unresponsive as noted above) - Studies Microbiology Data (last 24 hrs): 05/20/20 19:55 Throat Culture & Sensitivity - Final NORMAL UPPER RESPIRATORY ALAN GROWN. Medications List Reviewed: Yes Assessment & Plan Physician Review Additional Text: Impression: Septic shock with kidney/liver failure secondary to UTI with possible bacteremia complicated with bilateral COVID 19/NSTEMI/end-stage renal disease End-stage renal disease with uremia, hyperkalemia NSTEMI likely underlying CAD Acute on chronic anemia Thrombocytopenia likely related to septic shock with possible vasculitis Diabetes mellitus type 2 with hypoglycemia Hypertension with septic shock Elevated liver function suspect acute liver failure related to above Plan: Septic shock with kidney/liver failure likely related to UTI with possible bacteremia complicated with bilateral COVID 19: -continue ICU care, pulmology, nephrology consulted -was on levophed - dc'd overnight -with edema / pleural effusion and ESRD - avoiding overloading the patient -cultures growing GPC in blood and urine -continue cefepime and vancomycin -continue solumedrol for COVID-19 -LFTs worsened this morning, likely due to shock liver End-stage renal disease with uremia, hyperkalemia: was given IVF bolus in ED/admission. Nephrology consulted. To get dialysys today Surgery placed central line NSTEMI likely underlying CAD: Cardiology consulted. Cardiology would recommend anticoagulation therapy but due to current status / thrombocytopenia will hold off. Ideally patient would require aspirin and Plavix. Patient will need to be treated initially for his infectious process prior to any intervention Elevated liver function suspect acute liver failure related to above: worsening, likely due to shock liver. Hep panel ordered continue to monitor Thrombocytopenia likely related to septic shock with possible vasculitis: Case was discussed with hematology by hospitalist yesterday. Patient with NSTEMI. Will need to hold off on anti coagulation therapy due to low platelets. Monitor closely. Patient may require platelets if patient starts to bleed. Acute on chronic anemia: Will monitor this closely. May require transfusion if hemoglobin below 7. Diabetes mellitus type 2 with hypoglycemia: Accu-Cheks in place. Patient on sliding scale pre Hypertension with septic shock: Hold blood pressure medication. Continue as above. Code: reviewed yesterday with , full code Dispo: guarded prognosis, hospitalization > 2 days Time Spent Managing Pts Care (In Minutes): 50
[2020-05-22] MEDS: NOREPINEPHRINE 4 MG in D5W 250 ML IV PRN (12:54)
[2020-05-22] MEDS: EPOETIN ALFA-EPBX 10,000 UNIT/ML VIAL IV SCH (13:15)
[2020-05-22] MEDS ORDERED: VANCOMYCIN 1 GM in NA CHLORIDE 0.9% 250 ML IVPB ONE (14:00)
--- NOTE | 2020-05-22 14:31 | P.PN ---
Subjective Date of Service: 05/22/20 Primary Care Provider: None, Has seen Dr. Zavala in hospital for dialysis Chief Complaint: Severe sepsis Subjective 54-year-old male with history of ESRD on compassionate HD , diabetes mellitus type 2, , hypertension presents emergency department for malaise, fatigue, fever, weakness. pt have lactate of 9 , and procal of 44, today became hypotesnive and started on levophed Today tolerating HD with pressers support cultures grew gram possitive cocci , will request Surgery consult for catheter removal NSTEMI: monitor CE Review of Systems: unable to provide Physical exam general: confused Neck; Supple, No elevated JVD hear: RRR, normal S1,2 no murmur or rub Chest: CTAB, no rlaes or wheezes Abdomen: Soft , Nt Extremities no edema A/P End-stage renal disease HD today, will request surgery to remove dialysis catheter , next HD on Sunday or Sunday as per labs and volume status renal dose meds monitor vanco level Hyperkalemia HD today severe Sepsis high procal, elevated lactic acid and hypoglycemia unclear source , possible urosepsis cont Abx Blood cultures gram positive cocci , will request surgery to remove dialysis cathete Anemia of chronic disease cont epogen NSTEMI cardiology consulted CE and EKG thrombocytopenia likely due to sepsis HTN on levophed now DM hypoglycemia Cont D10 Physical Examination - Vital Signs Temperature: 97.8 F Blood Pressure: 135/81 Pulse: 92 Respirations: 18 Pulse Ox (%): 100 - Studies Microbiology Data (last 24 hrs): 05/20/20 19:55 Throat Culture & Sensitivity - Final NORMAL UPPER RESPIRATORY ALAN GROWN. Medications List Reviewed: Yes
[2020-05-22] MEDS ORDERED: LIDOCAINE 1% MPF 30 ML VIAL SQ ONE (14:36)
[2020-05-22] MEDS ORDERED: LIDOCAINE 1% 20 ML MDV ONE (16:00)
--- NOTE | 2020-05-22 16:02 | P.OP ---
Preoperative diagnosis: Possible HD cath infection Postoperative diagnosis: Possible HD cath infection Primary procedure: Removal of RIGHT tunnelled HD catheter Anesthesia: Lidocaine 1% used Estimated blood loss: <1cc Specimen: catheter tip sent for culture Complications: None Transferred to: ICU Condition: Serious
--- NOTE | 2020-05-23 03:56 | OP ---
Date of Procedure: 05/22/2020 Surgeon: Larry Smith MD, Preoperative Diagnosis: Possible tunneled hemodialysis catheter infection. Postoperative Diagnosis: Possible tunneled hemodialysis catheter infection. Procedure Performed: Removal of right tunneled hemodialysis catheter. Lidocaine 1% used for anesthe braulio. Estimated Blood Loss: Less than 1 mL. Specimen: Catheter tip sent for culture for both aerobic and anaerobic speciation. Complications: None. The patient will be in ICU in serious condition throughout the procedure. Procedure In Detail: After informed consent was obtained, the patient was prepped and draped in the usual sterile fashion. After adequate anesthesia was achieved with 1% lidocaine anesthetizing the tr act, I removed the sutures previously placed on the right chest wall. These were easily removed. At this point, I placed the hemostat into the tunnel tract and using manual reduction was able to pull the catheter into the field right at the entrance site. I circumferentially dissected this around us ing blunt dissection. Ultimately, gentle traction was allowed for removal of the catheter while the patient was still placed in steep Trendelenburg. At this point, I removed the catheter and sent the tip for culture at this point for aerobic and anaerobic speciation and placed the patient in head up position at this point while holding pressure at the insertion site. I then cleansed the area once a gain with Hibiclens and closed the insertion site with interrupted 2-0 nylon suture in a U-stitch fas hion with good approximation of tissues, good hemostasis. The patient tolerated the procedure well w ithout evidence of complication, remained in the ICU in serious condition throughout the procedure. All counts were correct at the end of the case. KRISTA/RAVI Voice ID: [id number] Report ID: [id number]
[2020-05-23 06:01] LABS: Albumin 1.5 g/dL (3.4-5.0); Bilirubin Total 4.3 mg/dL (0.2-1.0); Magnesium 2.8 mg/dL (1.8-2.4); Potassium 5.3 mmol/L (3.5-5.1); Protein, Total 4.3 g/dL (6.4-8.2)
[2020-05-23 06:24] LABS: Absolute Lymphocytes (CBC) 0.2 K/uL (0.7-4.9); Basophils % 0.2 % (0-1.3); Hematocrit 26.9 % (39.6-49.0); Lymphocytes % 1.6 % (15.3-44.8); MPV 10.8 fL (7.6-11.3); RBC Red Blood Cell Count 3.17 M/uL (4.33-5.43)
[2020-05-23 06:28] LABS: Ferritin 2361.4 ng/mL (26-388)
[2020-05-23] MEDS: FOLIC ACID 1 MG TABLET PO SCH (09:00)
[2020-05-23] MEDS: MIDODRINE HCL 5 MG TABLET PO SCH ×3 (09:00→21:00)
[2020-05-23] MEDS: ASCORBIC ACID 500 MG TABLET PO SCH ×3 (09:00→21:00)
[2020-05-23] MEDS: THIAMINE HCL 100 MG TABLET PO SCH (09:00)
[2020-05-23] MEDS: VITAMIN D 1000 UNIT TAB PO SCH (09:00)
[2020-05-23] MEDS: CEFEPIME/SWI 1gm 10 ML IVP SCH (09:00)
[2020-05-23 09:46] LABS: Blood Morphology Comment NOTED (NOT SEEN); Dohle Bodies PRESENT; Ovalocytes 1+; Platelet Estimate DECR
[2020-05-23] MEDS: METHYLPREDNISOLONE 125 MG INJ IV SCH (10:14)
[2020-05-23] MEDS ORDERED: CEFAZOLIN/NS 1gm 1 GM/50 ML BAG IVPB SCH (11:00)
[2020-05-23] MEDS: INSULIN -REGULAR HUMAN 50 UNIT/0.5 ML ML SQ SCH ×4 (11:03→18:44)
--- NOTE | 2020-05-23 11:06 | P.PN ---
Subjective Date of Service: 05/23/20 Primary Care Provider: None, Has seen Dr. Zavala in hospital for dialysis Chief Complaint: Severe sepsis Subjective 54-year-old male with history of ESRD on compassionate HD , diabetes mellitus type 2, , hypertension presents emergency department for malaise, fatigue, fever, weakness. pt have lactate of 9 , and procal of 44, today became hypotesnive and started on levophed , Pt was COvId positive and blood cultures grew Gram positive , dialysis catheter removed on 05/22 Today No chanage in clinical status Cont ABx dialysis catheter placement tomorrow and HD tomorrow F/U TTE, need to R/O septic emboli Review of Systems: unable to provide Physical exam general: confused Neck; Supple, No elevated JVD hear: RRR, normal S1,2 no murmur or rub Chest: CTAB, no rlaes or wheezes Abdomen: Soft , Nt Extremities no edema , cold legs A/P End-stage renal disease HD today, will request surgery to remove dialysis catheter , next HD on Sunday or Sunday as per labs and volume status renal dose meds monitor vanco level Hyperkalemia HD today Septic shock high procal, elevated lactic acid and hypoglycemia unclear source , possible urosepsis cont Abx Blood cultures gram positive cocci , will request surgery to remove dialysis catheter cont mioddrine, levophed prn F/U TTE, need to R/O septic emboli COVID 19 cont supportive care Anemia of chronic disease cont epogen elevated LFT due to shcoked liver NSTEMI cardiology consulted CE and EKG thrombocytopenia likely due to sepsis total time spent 40min Physical Examination - Vital Signs Temperature: 97.4 F Blood Pressure: 94/61 Pulse: 90 Respirations: 23 Pulse Ox (%): 100 - Studies Microbiology Data (last 24 hrs): 05/20/20 19:50 Blood - Blood Aerobic Blood Culture - Final Staph Aureus 05/20/20 19:50 Blood - Blood Blood Culture Gram Stain - Final 05/20/20 19:50 Blood - Blood Anaerobic Blood Culture - Final Staph Aureus 05/20/20 19:50 Blood - Blood Gram Stain - Final 05/20/20 20:10 Blood - Blood Aerobic Blood Culture - Final Staph Aureus 05/20/20 20:10 Blood - Blood Blood Culture Gram Stain - Final 05/20/20 20:10 Blood - Blood Anaerobic Blood Culture - Final Staph Aureus 05/20/20 20:10 Blood - Blood Gram Stain - Final 05/20/20 19:55 Throat Culture & Sensitivity - Final NORMAL UPPER RESPIRATORY ALAN GROWN. Medications List Reviewed: Yes
--- NOTE | 2020-05-23 11:21 | P.PN ---
Subjective Date of Service: 05/23/20 Primary Care Provider: None, Has seen Dr. Zavala in hospital for dialysis Chief Complaint: Severe sepsis Subjective: No new changes (off levophed, was on for dialysis yesterday remains unresponsive, groans in pain, does not open eyes or follows commands) Review of Systems is unable to be obtained Physical Examination - Vital Signs Temperature: 97.4 F Blood Pressure: 94/61 Pulse: 90 Respirations: 23 Pulse Ox (%): 100 - Physical Exam General: Unresponsive HEENT: Sclerae nonicteric Respiratory: Other (nonlabored on 2L NC) Cardiovascular: No edema, Regular rate/rhythm Gastrointestinal: Soft and benign, Tenderness (pt with some groaning on palpation) Integumentary: Other (b/l feet cold to touch. b/l fingers with ischemic purple/black changes. tip of nose with dusky appearance as well) - Studies Microbiology Data (last 24 hrs): 05/20/20 19:50 Blood - Blood Aerobic Blood Culture - Final Staph Aureus 05/20/20 19:50 Blood - Blood Blood Culture Gram Stain - Final 05/20/20 19:50 Blood - Blood Anaerobic Blood Culture - Final Staph Aureus 05/20/20 19:50 Blood - Blood Gram Stain - Final 05/20/20 20:10 Blood - Blood Aerobic Blood Culture - Final Staph Aureus 05/20/20 20:10 Blood - Blood Blood Culture Gram Stain - Final 05/20/20 20:10 Blood - Blood Anaerobic Blood Culture - Final Staph Aureus 05/20/20 20:10 Blood - Blood Gram Stain - Final 05/20/20 19:55 Throat Culture & Sensitivity - Final NORMAL UPPER RESPIRATORY ALAN GROWN. Medications List Reviewed: Yes Assessment & Plan Physician Review Additional Text: Impression: Septic shock with kidney/liver failure secondary to UTI with possible bacteremia complicated with bilateral COVID 19/NSTEMI/end-stage renal disease End-stage renal disease with uremia, hyperkalemia NSTEMI likely underlying CAD Acute on chronic anemia Thrombocytopenia likely related to septic shock with possible vasculitis Diabetes mellitus type 2 with hypoglycemia Hypertension with septic shock Elevated liver function suspect acute liver failure related to above Plan: Septic shock with kidney/liver failure likely related to UTI with possible bacteremia complicated with bilateral COVID 19: -continue ICU care, pulmology, nephrology consulted -on levophed yesterday for dialysis -with edema / pleural effusion and ESRD - avoiding overloading the patient -cultures growing MSSA in blood and urine, de-escalate vanc and cefepime to IV ancef per pulm/cc recommendation -LFTs worsened yesterday and improved today, likely due to shock liver -remains in highly guarded prognosis, at bedside and updated -R tunneled catheter removed on 05/22 due to bacteremia, tip sent for culture, will need new catheter placed tomorrow -repeat blood cultures today -bilateral fingers with dusky / ischemic due to shock and pressor use End-stage renal disease with uremia, hyperkalemia: was given IVF bolus in ED/admission. Nephrology consulted. s/p dialysis yesterday dialysis catheter as noted above NSTEMI likely underlying CAD: Cardiology consulted. Cardiology would recommend anticoagulation therapy but due to current status / thrombocytopenia will hold off. Ideally patient would require aspirin and Plavix. Patient will need to be treated initially for his infectious process prior to any intervention Elevated liver function suspect acute liver failure related to above: due to shock liver, improved this morning. Hep panel ordered continue to monitor Thrombocytopenia likely related to septic shock with possible vasculitis: Case was discussed with hematology by hospitalist on 04/21. Patient with NSTEMI. Will need to hold off on anti coagulation therapy due to low platelets. Monitor closely. Patient may require platelets if patient starts to bleed. Acute on chronic anemia: Will monitor this closely. May require transfusion if hemoglobin below 7. Diabetes mellitus type 2 with hypoglycemia: Accu-Cheks in place. Patient on sliding scale pre Hypertension with septic shock: Hold blood pressure medication. Continue as above. Code: reviewed today with , full code Dispo: guarded prognosis, hospitalization > 2 days, continue ICU care Critical Care: Yes (30) Time Spent Managing Pts Care (In Minutes): 50
[2020-05-23] MEDS ORDERED: GLUCAGON 1 MG/VIAL IM PRN (11:57)
[2020-05-23] MEDS ORDERED: D50W 25 GM/50 ML SYRINGE IV PRN (11:57)
[2020-05-23] MEDS: CEFAZOLIN/SWI 1gm 1 GM/10 ML SYR IV SCH ×2 (12:36→21:56)
--- NOTE | 2020-05-23 19:34 | RAD REPORT ---
EXAM DESCRIPTION: US - Extrem Venous W Compress Tomasz - 05/23/2020 6:49 pm CLINICAL HISTORY: eval for DVT, leg pain and swelling COMPARISON: May 14 TECHNIQUE: Real-time sonographic evaluation of the bilateral lower extremity common femoral, superfi cial femoral, popliteal and posterior tibial veins was performed. FINDINGS: Normal compressibility, flow augmentation, phasic flow and spontaneous flow are identified in the left and right lower extremity common femoral, superficial femoral, popliteal and posterior t ibial veins. No intraluminal filling defects seen. IMPRESSION: No DVT in either lower extremity.
--- NOTE | 2020-05-23 19:36 | RAD REPORT ---
EXAM DESCRIPTION: US - Lower Extremity Arterial Bilat - 05/23/2020 6:49 pm CLINICAL HISTORY: eval for arterial flow, leg pain COMPARISON: None. TECHNIQUE: Velocity values and waveforms were obtained along the length of each lower extremity. Vis ual inspection of the lower extremity arterial tree performed. FINDINGS: No occlusion or focal flow restricting lesion identifiable. Triphasic waveform pattern see n in the right lower extremity common femoral, superficial and popliteal arteries. At the ankle the r ight dorsalis pedis posterior tibial arteries are biphasic. Bandaging obscured access to the left com mon femoral artery. Triphasic waveforms were seen in the femoral, popliteal and posterior tibial jhoana floyd on the left. The dorsalis pedis on the left was biphasic. No suspicious waveform pattern seen. No suspicious velocity value. IMPRESSION: Lower extremity peripheral arterial disease is evident but appears mild. No occlusion or focal flow restricting lesion identified.
[2020-05-23] MEDS: NEPRO SHAKE 237 ML CAN PO SCH (21:00)
--- NOTE | 2020-05-23 21:55 | RAD REPORT ---
EXAM DESCRIPTION: CT - Head Brain Wo Cont - 05/23/2020 9:05 pm CLINICAL HISTORY: change of neuro status COMPARISON: No comparisonsChest Single View dated 05/20/2020 TECHNIQUE: Axial 5 mm thick images of the head were obtained without IV contrast. All CT scans are performed using dose optimization technique as appropriate and may include automated exposure control or mA/KV adjustment according to patient size. FINDINGS: No intracranial hemorrhage, mass, edema or shift of mid-line structures. No acute cortical based infarction. No cortical edema or sulcal effacement. Focal diminished attenuation in the right frontal lobe appears to be old infarction. There is cortical thinning in this location. Moderate atro phy is present. This is advanced for age. Chronic ischemic change seen in the cerebral white matter. Arterial calcifications are present. No abnormal extra-axial fluid collections. Ventricles are in pro portion to volume loss. Mastoid air cells and visualized portions of the paranasal sinuses are clear. No acute bony findings. IMPRESSION: No hemorrhage or mass lesion. No acute cortical infarction. 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 Patient has underlying atrophy and chronic ischemic change. Chronic ischemic changes can mask nonhemorrhagic acute infarction. MR brain followup can be obtained if there is ongoing concern for acute ischemia.
[2020-05-24] MEDS: INSULIN -REGULAR HUMAN 50 UNIT/0.5 ML ML SQ SCH ×4 (01:00→18:02)
[2020-05-24 06:50] LABS: Absolute Lymphocytes (CBC) 0.4 K/uL (0.7-4.9); Basophils % 0.1 % (0-1.3); Lymphocytes % 2.3 % (15.3-44.8); MPV 11.6 fL (7.6-11.3); RBC Red Blood Cell Count 3.18 M/uL (4.33-5.43)
[2020-05-24 06:56] LABS: Protime INR 2.86
[2020-05-24 07:34] LABS: Albumin 1.4 g/dL (3.4-5.0); Bilirubin Total 4.4 mg/dL (0.2-1.0); Ferritin 1522.7 ng/mL (26-388); Protein, Total 4.7 g/dL (6.4-8.2)
[2020-05-24 07:51] LABS: Dohle Bodies PRESENT; Platelet Estimate DECR
[2020-05-24 07:52] LABS: Anisocytosis 2+; Blood Morphology Comment NOTED (NOT SEEN); Ovalocytes 1+; Polychromasia 1+
[2020-05-24] MEDS ORDERED: D50W 25 GM/50 ML SYRINGE IV ONE (07:52)
[2020-05-24] MEDS ORDERED: INSULIN -REGULAR HUMAN 50 UNIT/0.5 ML ML IV ONE (07:53)
[2020-05-24] MEDS ORDERED: SOD POLYSTYREN SUL 15 GM/60 ML UCUP PR SCH (08:30)
[2020-05-24] MEDS ORDERED: SODIUM BICARB 50 MEQ/50ML VIAL IV ONE (08:30)
[2020-05-24] MEDS: FOLIC ACID 1 MG TABLET PO SCH (09:00)
[2020-05-24] MEDS ORDERED: D5W 1,000 ML with NA BICARB 8.4% 150 MEQ IV SCH ×4 (09:00)
[2020-05-24] MEDS: MIDODRINE HCL 5 MG TABLET PO SCH ×3 (09:00→21:00)
[2020-05-24] MEDS: NEPRO SHAKE 237 ML CAN PO SCH ×2 (09:00→21:00)
[2020-05-24] MEDS: VITAMIN D 1000 UNIT TAB PO SCH (09:00)
[2020-05-24] MEDS: THIAMINE HCL 100 MG TABLET PO SCH (09:00)
[2020-05-24] MEDS: ASCORBIC ACID 500 MG TABLET PO SCH ×3 (09:00→21:00)
[2020-05-24] MEDS: CEFAZOLIN/SWI 1gm 1 GM/10 ML SYR IV SCH ×2 (09:33→21:58)
[2020-05-24] MEDS: GENTAMICIN 80 MG/100 ML BAG 80 MG/100 ML BAG IV SCH (09:33)
[2020-05-24] MEDS: SOD POLYSTYREN SUL 15 GM/60 ML UCUP PR SCH ×2 (10:00→10:57)
[2020-05-24] MEDS: CALCIUM GLUC 10% INJ 4.65 MEQ in NA CHLORIDE 0.9% 100 ML IV SCH ×4 (10:56→17:00)
[2020-05-24] MEDS ORDERED: NA CHLORIDE 0.9% 500 ML ONE ×2 (12:57→21:00)
[2020-05-24] MEDS ORDERED: HEPARIN 5000 UNIT/ML 1 ML VIAL ONE (13:24)
[2020-05-24] MEDS ORDERED: NS 0.9% VIAL 10 ML ONE (13:25)
[2020-05-24] MEDS ORDERED: LIDOCAINE 1% MPF 30 ML VIAL ONE (13:25)
[2020-05-24] MEDS ORDERED: NA CHLORIDE 0.9% 100 ML IV ONE (13:26)
[2020-05-24] MEDS ORDERED: CEFAZOLIN SODIUM 1 GM/VIAL ONE (14:05)
[2020-05-24] MEDS ORDERED: CEFAZOLIN/SWI 1gm 1 GM/10 ML SYR ONE (14:06)
[2020-05-24 14:23] LABS: MPV 7.9 fL (7.6-11.3)
[2020-05-24 14:24] LABS: Platelet Estimate DECR
[2020-05-24 14:51] LABS: Potassium 7.6 mmol/L (3.5-5.1)
--- NOTE | 2020-05-24 15:02 | P.OP ---
Manager Office Services: NONE,NONE Preoperative diagnosis: Hyperkalemia, ESRD, Sepsis Postoperative diagnosis: same Primary procedure: Right Subclavian Maksim catheter placement Secondary procedure: Fluoroscopy Anesthesia: MAC Estimated blood loss: min Specimen: none Findings: Normal anatomy Complications: None Transferred to: Recovery Room Condition: Good
--- NOTE | 2020-05-24 16:48 | RAD REPORT ---
EXAM DESCRIPTION: RAD - Chest Single View - 05/24/2020 4:07 pm CLINICAL HISTORY: S/P Maksim catheter COMPARISON: May 20 TECHNIQUE: AP portable chest image was obtained 05/24/2020 4:07 pm . FINDINGS: Right-sided central vascular access catheter placed. Tip is at the SVC atrial junction. No pneumothorax. Left base opacification could be infiltrate or atelectasis. Heart size is normal. IMPRESSION: Central line placement with tip at the SVC atrial junction. No pneumothorax.
--- NOTE | 2020-05-24 16:50 | RAD REPORT ---
EXAM DESCRIPTION: RAD - Fluoroscopy <1 Hour - 05/24/2020 4:22 pm FINDINGS: A single portable C-arm view was submitted from fluoroscopic assisted placement of a vascu lar access catheter. No suspicious or unexpected finding. Fluoro time was 0.8 minutes. Cumulative dose was 4.51 mGy.
[2020-05-24] MEDS: ALBUMIN HUMAN 25% 100 ML IV ONE ×2 (17:00→17:10)
--- NOTE | 2020-05-24 18:00 | P.PN ---
Subjective Date of Service: 05/24/20 Primary Care Provider: None, Has seen Dr. Zavala in hospital for dialysis Chief Complaint: Severe sepsis Subjective: No new changes (still unresponsive, no significant changes, no acute events overnight. did have CT brain - no new findings at bedside, updated, 30min discussion over code status and severity of illness) Review of Systems is unable to be obtained Physical Examination - Vital Signs Temperature: 99.0 F Blood Pressure: 117/68 Pulse: 99 Respirations: 33 Pulse Ox (%): 100 - Physical Exam General: Unresponsive (not withdrawing to pain) HEENT: Other (L pupil dilated (chronic)) Respiratory: Other (tachypneic 22-30) Cardiovascular: Regular rate/rhythm, Edema Gastrointestinal: Soft and benign, Non-distended Integumentary: Other (b/l upper digits black discoloration, b/l feet cool to touch, mottled appearance) Neurological: Other (unresponsive, not withdrawing to pain, seems to groan in pain with movement of arms) - Studies Medications List Reviewed: Yes Assessment & Plan Physician Review Additional Text: Impression: Septic shock with kidney/liver failure secondary to UTI with MSSA bacteremia complicated with bilateral COVID 19/NSTEMI/end-stage renal disease End-stage renal disease with uremia, hyperkalemia NSTEMI likely underlying CAD Acute on chronic anemia Thrombocytopenia likely related to septic shock with possible vasculitis Diabetes mellitus type 2 with hypoglycemia Hypertension with septic shock Elevated liver function suspect acute liver failure related to above Plan: Septic shock with kidney/liver failure likely related to UTI with MSSA bacteremia complicated with bilateral COVID 19: -continue ICU care, pulmology, nephrology consulted -cultures growing MSSA in blood and urine, reviewed with ID - ancef and gentamicin (with dialysis) recommended -remains in highly guarded prognosis, at bedside and updated daily, still wants everything done / full code -R tunneled catheter removed on 05/22 due to bacteremia, tip sent for culture, temporary cath placed today by Dr. Gibbons -repeat blood cultures yesterday positive -bilateral fingers with dusky / ischemic due to shock and pressor use -MRI when patient stable, likely tomorrow, EEG ordered, neuro consulted End-stage renal disease with uremia, hyperkalemia: nephrology consulted, dialysis today NSTEMI likely underlying CAD: Cardiology consulted. Cardiology would recommend anticoagulation therapy but due to current status / thrombocytopenia will hold off. Ideally patient would require aspirin and Plavix. Patient will need to be treated initially for his infectious process prior to any intervention Elevated liver function suspect acute liver failure related to above: due to shock liver, improved. Hep panel ordered continue to monitor Thrombocytopenia likely related to septic shock with possible vasculitis: concern for DIC given low platelets, some petechiae noted on skin, concern for emboli / thrombus Acute on chronic anemia: Will monitor this closely. May require transfusion if hemoglobin below 7. Diabetes mellitus type 2 with hypoglycemia: Accu-Cheks in place. Patient on sliding scale pre Hypertension with septic shock: Hold blood pressure medication. Continue as above. Code: reviewed today with , full code Dispo: guarded prognosis, hospitalization > 2 days, continue ICU care Critical Care: Yes Time Spent Managing Pts Care (In Minutes): 55
--- NOTE | 2020-05-24 18:06 | PREOPCON ---
Date of Consultation: 05/24/2020 Reason: Patient needs dialysis. History Of Present Illness: This is a 54-year-old gentleman with multiple medical problems, who was admitted in septic shock and then decompensated relatively rapidly, was sent to the ICU, was on press ors, had his tunneled catheter removed on Sunday and now needs dialysis and has hyperkalemia. He h ad been getting compassionate dialysis. He would go to the emergency room and get it on a p.r.n. bas is based on his electrolyte levels and currently he is not responsive, however he is breathing on his own and the family after much discussion wants everything done. They do not want patient to be on h ospice. So informed consent was obtained from the explaining her the risks in detail via transl ator as patient has thrombocytopenia and coagulopathy and hepatorenal failure. She understands. She knows it is a last ditch effort and she agrees to the procedure. Patient is unable to provide any r eview of systems. Information is based on the documentation in the computer as well as discussion wi th nursing staff, other physicians and computer. Review of Systems: Otherwise unremarkable. Medical History: Significant for chronic kidney disease with end-stage renal disease, hypertension, diabetes, hypothyroidism. Past Surgical History: Dialysis catheter placement. Allergies: NONE. Social History: Patient does not smoke or drink alcohol. Family History: Noncontributory. Physical Examination: Vital Signs: Currently are systolic between 87/101, heart rate in the high 90s to low 100s, respirat ory rate in the low 30s. General: He is awake, but not responsive except to deep painful stimuli. Head and Neck: No masses. Chest: Diminished breath sounds. Heart: S1 and S2. Abdomen: Soft. Extremities: Neurovascularly intact. Neurologic: Nonfocal. Laboratory Data: White count is 17.9, H and H is 8.6 and 27, platelets are 29,000. Unit of platelet s has been ordered and being given to the patient as we speak. INR is 2.86, PT is 33.1. His last po tassium this morning was 7.0, BUN is 130, procalcitonin is 38.87. Head CT is negative. Extremity ve nous study is negative for DVT. The patient had a chest, abdomen, pelvis CT done on a findings were generalized evidence of anemia, bilateral pleural effusions, patchy area of infiltra fariha bilaterally. Please note the patient is COVID positive. Assessment: A 54-year-old gentleman with septic shock, hepatorenal failure requiring emergent dialys is with the grim outlook. Recommendation: We will proceed with placement of a Maksim catheter for temporary dialysis. If he is stabilized and if he improves, then we will put a tunneled catheter. The understands risks, benefits, alternatives and agrees to procedure. /MODL Voice ID: [id number] Report ID: [id number]
[2020-05-24 18:08] LABS: Arterial Blood Carboxyhemoglob 0.7 % (0-1.5); Blood Gas Oxyhemoglobin 96.8 % (94-97); Blood O2 Saturation 99.1 % (92-98.5)
--- NOTE | 2020-05-24 18:12 | OP ---
Date of Procedure: 05/24/2020 Surgeon: Rommel Gibbons MD Check Weigher: None. Preoperative Diagnoses: 1.End-stage renal disease. 2.Hyperkalemia. 3.Sepsis. Postoperative Diagnoses: 1.End-stage renal disease. 2.Hyperkalemia. 3.Sepsis. Procedure: The patient with right subclavian Maksim catheter interpretation, intraoperative fluoros copy. Estimated Blood Loss: Minimal. Specimen: None. Findings: Normal anatomy. Anesthesia: MAC. Complications: None. Disposition: The patient tolerated the procedure in stable condition and taken back to ICU in critic al but stable condition. Procedure In Detail: The patient was brought to the OR and placed in supine position. MAC anesthesi a was begun. The patient was prepped and draped in usual sterile fashion. Lidocaine 1% infiltrated locally. An 18-gauge needle was used to access the right IJ vein. However, the guidewire was diffic ult to pass, therefore a right subclavian vein was accessed and then a guidewire passed, position con firmed with fluoroscopy. Vein dilated via Seldinger technique and then tip of the catheter was place d in the SVC under fluoroscopy and then catheter was flushed with saline and minimal amount of hepari n and with good blood flow. Then 3-0 nylon was used to secure the tube to the chest wall. Sterile d ressing was applied. Patient was taken to back to the ICU and chest x-ray has been ordered. DALTON/MODL Voice ID: [id number] Report ID: [id number]
[2020-05-24] MEDS: EPOETIN ALFA-EPBX 10,000 UNIT/ML VIAL IV SCH (18:15)
--- NOTE | 2020-05-24 20:00 | CON ---
Reason For Consultation: Consultation called because of severe altered mental status with multiorgan failure including renal failure and liver failure. History Of Present Illness: Mr. Medina was admitted to [facility] into the ICU on the 20 of May with marked decline in functioning, including worsening renal function and hepatic dysfun ction. However, he was noted to be alert, oriented x3 by the admitting physician. He did have on a blood sugar of 179. This was at 0317 hours, however, at 0822 hours on 05/21, his blood sugar was reportedly less than 20. His lactic acid did increase from 8.9 on May 21 at 0317 ronna rs to 10.5 with elevated procalcitonin up to 40.77. It was determined that the patient was in severe sepsis and was treated as such. The patient had blood sugars that remain less than 20 until this is the POC glucose around 0854 hours when it was reading in the blood at 145 and then decreased to less than 20 again at 0923 hours, this was all on and at 1004 hours less than 20, then at 1152 hours on the came up to 230. Subsequent blood sugars have been in the 90s and above up to 220 and 25 0. Liver function studies increased to 635 and 755, AST and ALT respectively on May 23. Clinic ally, the patient since on the has become unresponsive to verbal and tactile stimulation. 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 His head CT scan shows no acute ischemic or hemorrhagic change with the most recent head CT scan being done on the 27t h, that is yesterday. The study did show moderate atrophy, which is advanced for the patient's age o f 54, but no acute ischemic or hemorrhagic change. MRI of the brain was recommended and is on order. He at the time of my evaluation was having an EEG. I did speak with the patient's , who recoun ts that he was interactive and alert and he was treated for his infection with medication, and then s he says he began itching and had problems breathing and he was then treated in the ICU appropriately with ventilatory support. Since that time, he has not been responsive to verbal and tactile stimulat ion. 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 Past Medical History: As indicated, in addition to hypothyroidism, diabetes mellitus, end-stage shravan l disease and now on hemodialysis with catheter in place, chronic renal disease. Allergies: NO KNOWN DRUG ALLERGIES. Medications: Prior medications, Procrit 1000 units every hemodialysis, metoprolol twice daily, and L asix 80 mg daily. Family History: Positive for arthritis in the family. Review of Systems: Unable to give a review of systems as the patient is not responsive to verbal or tactile stimulation. Physical Examination: Vital Signs: Blood pressure of actually 88 up to 117/57 to 68, respiratory rate up to 33, pulse of 9 9 to 108, temperature 99, oxygen saturation 100%. Weight 136 pounds, height 5 feet 5 inches, BMI 22. 6. General: Mr. Medina is resting in bed with his mouth open with a rapid respiratory rate. He does karimi ve oxygen via face mask and non-rebreather. He is having an EEG done. HEENT: Head is somewhat extended. His arms are held beside his body. Legs not straight, but not po sturing, however, his head is arched backwards. Lungs: He does have good air movement. Extremities: There is cyanosis noted in the fingers and very cold temperature to the feet suggestive of very poor circulation. No pulses really appreciated at the dorsalis pedis. Neurological: He does not respond to verbal or tactile stimulation. No spontaneous movements of the arms or legs. No spontaneous eye movement and very sluggish pupillary reaction on the left. Tone, he has slightly increased in the upper and lower extremities. Unable to assess coordination and gait . Assessment: Mr. Medina is a 54-year-old patient with likely multiple reasons for the severe encephal opathy including multiorgan failure, hepatic and renal encephalopathy in addition to episodes of summer re hypoglycemia, which will produce a metabolic encephalopathy. It is also possible he has significa nt abnormalities on electroencephalogram, which is currently being done. At this point, the patient' s prognosis for good recovery is very poor. He does appear to have DIC with multiorgan failure. Thi s was discussed with the patient's through a digital media producer that was available via [employer]. The pa tient currently is receiving hemodialysis palliatively and however it is likely not to make a good re covery given his multiorgan failure. Plan: 1.We will follow up brain MRI and actual followup EEG. 2.At some point, I think the patient continues, but it is viable he may require ventilatory support. However, the patient and the patient's did indicate that he and she would want everything done , including a full chest compressions and intubation if that is required and that should be full code . BRIAN/RAVI Voice ID: [id number] Report ID: [id number]
[2020-05-24] MEDS ORDERED: ADENOSINE 6 MG/ 2ML VIAL IV ONE ×2 (20:05→20:09)
[2020-05-24] MEDS ORDERED: AMIODARONE HCL 150 MG/3 ML INJ IV ONE ×2 (20:14)
[2020-05-24] MEDS ORDERED: AMIODARONE IN DEXTROSE,ISO-OSM 360 MG/200 ML BAG IV ONE (20:16)
[2020-05-24] MEDS ORDERED: D5W 100 ML IV ONE (20:16)
[2020-05-24] MEDS ORDERED: RSI MEDICATION KIT IV ONE (20:40)
[2020-05-24 20:44] LABS: Potassium 4.7 mmol/L (3.5-5.1)
[2020-05-24] MEDS ORDERED: NA CHLORIDE 0.9% 500 ML IV ONE (20:55)
[2020-05-24 21:14] LABS: Absolute Lymphocytes (CBC) 1.3 K/uL (0.7-4.9); Basophils % 0.3 % (0-1.3); Lymphocytes % 6.9 % (15.3-44.8); MPV 8.6 fL (7.6-11.3); RBC Red Blood Cell Count 2.18 M/uL (4.33-5.43)
--- NOTE | 2020-05-24 21:20 | RAD REPORT ---
EXAM DESCRIPTION: RAD - Chest Single View - 05/24/2020 9:14 pm CLINICAL HISTORY: ETT and NGT placement COMPARISON: April TECHNIQUE: AP portable chest image was obtained 05/24/2020 9:14 pm . FINDINGS: Endotracheal tube has been placed. Tip is at the T4 level top of the aortic arch. NG tube is in place in the proximal stomach. Right-sided vascular access catheter has not change from earlier examination. Retrocardiac left base remains dense with obscured left hemidiaphragm. There is increased opacificati on in the left medial suprahilar region. Heart size is stable. No pneumothorax. IMPRESSION: ET tube tip T4 level top of the aortic arch. NG tube tip extends into the proximal stomach. Side hole of the tubing is near the GE junction. Left base opacification and medial left upper lobe opacification is suspected to be infiltrates. Thes e can be monitored on follow-up imaging.
[2020-05-24 21:28] LABS: Magnesium 2.7 mg/dL (1.8-2.4); Phosphorus 6.7 mg/dL (2.5-4.9)
[2020-05-24 21:31] LABS: Hematocrit 18.4 % (39.6-49.0)
--- NOTE | 2020-05-24 22:30 | PN ---
Date of Progress Note: 05/24/2020 Chief Complaint: Severe hyperkalemia. History Of Present Illness: The patient is a 54-year-old man with history of end-stage renal disease , on compassionate dialysis; diabetes mellitus type 2; hypertension. He presented to emergency room for malaise, fatigue, fever, weakness. He was found to have elevated lactate level and procalcitonin was up to 44. He became hypotensive and started on Levophed. The patient was treated for positive blood culture with gram-positive cocci. Dialysis catheter was removed on May 22. The patient w as treated for COVID pneumonia. Today, blood culture after catheter removal again revealed gram-posi tive cocci. The patient will continue vancomycin and gentamicin will be added for possible endocardi tis. The patient will be evaluated by Infectious Disease. The patient was found to have severe hype rkalemia, potassium level today was 7. Catheter was placed. After the patient received IV platelet transfusion, the patient had low platelet and antibiotics modified today. The patient is on pressors . Dialysis is done with 1 K to treat potassium level. The patient was treated with Kayexalate and s tarted on bicarbonate drip, received IV glucose and IV insulin with stabilized potassium level. Desp ite medical treatment, potassium level went up from 7 to 7.6. The patient is scheduled to have dialy sis with 1 potassium dialysate. Review of Systems: Unobtainable. The patient is undergoing workup with Neurology for encephalopathy. Physical Examination: Heart: Regular rate and rhythm. No pericardial friction rub. Abdomen: Soft, benign. Extremities: No edema. Impression And Plan: 1.Severe hyperkalemia. Dialysis was done after catheter was placed. The patient received medicatio ns including Kayexalate, calcium gluconate, sodium bicarbonate, IV dextrose, and IV insulin. One pot assium dialysis use and potassium level will be re-evaluated after dialysis. 2.Blood culture with positive cocci. Catheter was removed due to blood infection with bacteremia. Despite catheter removal, the patient has persistent positivity on blood culture, likely secondary to endocarditis. The patient may benefit from treatment for endocarditis and I recommended Infectious Disease consult. 3.Non-ST elevation myocardial infarction. The patient was seen by supervisor wet end for non-ST elevation myocardial infarction. AMBER/RAVI Voice ID: [id number] Report ID: [id number]
[2020-05-24 22:31] LABS: Arterial Blood Carboxyhemoglob 1.1 % (0-1.5); Blood Gas Oxyhemoglobin 94.2 % (94-97); Blood O2 Saturation 96.9 % (92-98.5)
--- NOTE | 2020-05-24 22:43 | P.PN ---
Date of Service: 05/24/20 Was called by nursing staff and made aware that patient was having a narrow complex tachycardia with a rate around 170-180, immediately came to patient's bedside, appear to be rapid narrow complex, regular rhythm with a rate around 170-180. Patient was administered 6 mg of adenosine IV rapid push, patient did briefly convert to sinus rhythm before returning back to a rapid narrow complex irregular rhythm around 170-180 again. Patient was given 12 mg of adenosine IV rapid push, blood pressure was maintaining with map around 65, patient then converted to AFib RVR with a rate around 160. Amiodarone 150 mg bolus was given as well as start of amiodarone drip, patient then converted to sinus rhythm with a rate around 105. Patient's blood pressure was reasonable around 101 systolic but patient began having agonal respirations. Case was discussed at length with patient's , she was made aware that his condition is critical and I even with intubation and ventilator his prognosis is extremely poor. understands and wants to continue with full code status. ED provider was paged for assistance and intubation, patient was intubated and placed on ventilator. Patient received 2 hr of dialysis prior to beginning of this arrhythmia, initial potassium was very elevated but now it is around 4.5. Hemoglobin did drop to 5.9, as patient had some fluid taken off from dialysis will transfuse 2 units packed red blood cells. Case discussed with pulmonology, Cardiology, hospitalist attending. Patient again with very poor prognosis, will continue to monitor throughout the evening.
[2020-05-24] MEDS ORDERED: NA CHLORIDE 0.9% 250 ML ONE (23:10)
[2020-05-25 00:35] VITALS: O2SAT 100
[2020-05-25] MEDS: NOREPINEPHRINE 4 MG in D5W 250 ML IV PRN (00:36)
[2020-05-25] MEDS: INSULIN -REGULAR HUMAN 50 UNIT/0.5 ML ML SQ SCH ×4 (00:58→17:37)
[2020-05-25] MEDS ORDERED: AMIODARONE HCL 450 MG in D5W 241 ML IV SCH (01:00)
[2020-05-25] MEDS ORDERED: AMIODARONE HCL 150 MG/3 ML INJ IV ONE (01:29)
[2020-05-25] MEDS ORDERED: D5W 250 ML IV ONE (01:31)
[2020-05-25] MEDS ORDERED: PANTOPRAZOLE 40 MG INJ IVP ONE (01:35)
[2020-05-25] MEDS ORDERED: SODIUM CHLORIDE 0.9% 10ML INJ IV PRN (01:35)
[2020-05-25] MEDS ORDERED: PANTOPRAZOLE INJ 80 MG in NA CHLORIDE 0.9% 250 ML IV SCH ×2 (02:00→10:00)
[2020-05-25] MEDS: OCTREOTIDE 500 MCG in NA CHLORIDE 0.9% 500 ML IV SCH ×3 (03:17→22:29)
[2020-05-25] MEDS ORDERED: OCTREOTIDE ACETATE 500 MCG/ML ONE (03:18)
[2020-05-25] MEDS ORDERED: NA CHLORIDE 0.9% 500 ML ONE (03:18)
[2020-05-25 03:41] LABS: HBsAG Nonreactive (Nonreactive)
--- NOTE | 2020-05-25 08:01 | ECHO ---
HEIGHT: 5 ft 5 in WEIGHT: 137 lb 6.4 oz DATE OF STUDY: 05/24/[address]: Luis Rincon 2-DIMENSIONAL: YES M.MODE: YES DOPPLER: YES COLOR FLOW: YES TDS: PORTABLE: DEFINITY: BUBBLE STUDY: DIAGNOSIS: ELEVATED TROPONIN CARDIAC HISTORY: CATHERIZATION: SURGERY: PROSTHETIC VALVE: PACEMAKER: MEASUREMENTS (cm) DIASTOLIC (NORMALS) SYSTOLIC (NORMALS) IVSd 0.9 (0.6-1.2) LA Diam (1.9-4.0) LVEF 19% LVIDd 4.8 (3.5-5.7) LVIDs 4.4 (2.0-3.5) %FS 9% LVPWd 1.1 (0.6-1.2) Ao Diam 2.6 (2.0-3.7) 2 DIMENSIONAL ASSESSMENT: RIGHT ATRIUM: NORMAL LEFT ATRIUM: NORMAL RIGHT VENTRICLE: NORMAL LEFT VENTRICLE: SEVERELY DEPRESSED FUNCTION TRICUSPID VALVE: NORMAL MITRAL VALVE: MILD MITRAL REGURGITATION PULMONIC VALVE: NORMAL AORTIC VALVE: NORMAL PERICARDIAL EFFUSION: NONE AORTIC ROOT: NORMAL LEFT VENTRICULAR WALL MOTION: SEVERE GLOBAL HYPOKINESIS DOPPLER/COLOR FLOW: SEE BELOW COMMENTS: SEVERELY DEPRESSED LEFT VENTRICULAR EJECTION FRACTION OF 15-20%. SEVERE GLOBAL HYPOKINESIS. MILD MITRAL REGURGITATION. RIGHT VENTRICULAR SYSTOLIC PRESSURE 40-45 mmHg. TECHNOLOGIST: FLOWER ESPITIA
[2020-05-25] MEDS: MIDODRINE HCL 5 MG TABLET PO SCH ×4 (09:00→19:39)
[2020-05-25] MEDS: NEPRO SHAKE 237 ML CAN PO SCH ×2 (09:00→19:39)
[2020-05-25] MEDS: THIAMINE HCL 100 MG TABLET PO SCH ×2 (09:00→09:07)
[2020-05-25] MEDS: ASCORBIC ACID 500 MG TABLET PO SCH ×4 (09:00→19:39)
[2020-05-25] MEDS: VITAMIN D 1000 UNIT TAB PO SCH ×2 (09:00→09:06)
[2020-05-25] MEDS: FOLIC ACID 1 MG TABLET PO SCH ×2 (09:00→09:09)
[2020-05-25] MEDS: CEFAZOLIN/SWI 1gm 1 GM/10 ML SYR IV SCH ×2 (09:08→19:51)
[2020-05-25 09:32] LABS: Absolute Lymphocytes (CBC) 0.7 K/uL (0.7-4.9); Basophils % 0.3 % (0-1.3); Hematocrit 32.2 % (39.6-49.0); Lymphocytes % 3.1 % (15.3-44.8); MPV 11.9 fL (7.6-11.3)
[2020-05-25 09:44] LABS: Protime INR 4.37
[2020-05-25 09:55] LABS: Anisocytosis 1+; Blood Morphology Comment NOTED (NOT SEEN); Platelet Estimate DECR
[2020-05-25 09:56] LABS: Polychromasia 1+
[2020-05-25 10:02] LABS: Ferritin 1887.6 ng/mL (26-388); Magnesium 2.6 mg/dL (1.8-2.4)
[2020-05-25 10:36] LABS: Albumin 1.6 g/dL (3.4-5.0); Bilirubin Total 4.9 mg/dL (0.2-1.0); Magnesium 2.6 mg/dL (1.8-2.4); Phosphorus 7.9 mg/dL (2.5-4.9); Protein, Total 4.2 g/dL (6.4-8.2)
[2020-05-25 10:46] LABS: Potassium 5.7 mmol/L (3.5-5.1)
[2020-05-25] MEDS ORDERED: ETOMIDATE 20 MG/10 ML VIAL IV ONE (10:48)
[2020-05-25] MEDS ORDERED: ROCURONIUM 50 MG/5 ML VIAL IV ONE (10:48)
--- NOTE | 2020-05-25 12:13 | P.PN ---
Subjective Date of Service: 05/25/20 Primary Care Provider: None, Has seen Dr. Zavala in hospital for dialysis Chief Complaint: Severe sepsis Subjective 54-year-old male with history of ESRD on compassionate HD , diabetes mellitus type 2, , hypertension presents emergency department for malaise, fatigue, fever, weakness. pt have lactate of 9 , and procal of 44, today became hypotesnive and started on levophed , Pt was COvId positive and blood cultures grew Gram positive , dialysis catheter removed on 05/22 , pt intibated , Today Intubated last night, NGT with cofee ground , Hb dropped to <7.0, received PRBC K 5.7 , will do dialysis today and tomorrow with presser support if needed Review of Systems: unable to provide Physical exam general: intubated Neck; Supple, No elevated JVD hear: RRR, normal S1,2 no murmur or rub Chest: CTAB, no rlaes or wheezes Abdomen: Soft , Nt Extremities +2 hand edema, cold extremities with blackened tips A/P End-stage renal disease HD today, and tomorrow renal dose meds Hyperkalemia HD today Septic shock cont Abx Blood cultures gram positive cocci , dialysis catheter removed levophed prn TTE, no vegetation , EF 15% infective endocarditis vs septic emboli cardiology on board cardiomyopathy EF now 15 % COVID 19 cont supportive care Anemia of chronic disease cont epogen elevated LFT due to shocked liver NSTEMI cardiology consulted CE and EKG thrombocytopenia likely due to sepsis total time spent 40min prognosis guarded Physical Examination - Vital Signs Temperature: 98.2 F Blood Pressure: 98/67 Pulse: 90 Respirations: 22 Pulse Ox (%): 100 - Studies Medications List Reviewed: Yes
[2020-05-25] MEDS ORDERED: ALBUMIN HUMAN 25% 50 ML IV SCH (14:00)
--- NOTE | 2020-05-25 14:12 | P.PN ---
Subjective Date of Service: 05/25/20 Primary Care Provider: None, Has seen Dr. Zavala in hospital for dialysis Chief Complaint: Severe sepsis Hemoglobin increased to 10. Patient with papyracea ischemic changes on the fingers and toes and nose. He remain on Levophed for hypotension. Patient intubated for SVT and agonal breathing. Patient was given adenosine and amiodarone. Coffee-ground emesis reported. Physical Examination - Vital Signs Temperature: 98.2 F Blood Pressure: 98/67 Pulse: 90 Respirations: 22 Pulse Ox (%): 100 - Physical Exam General: Other (Unresponsive) HEENT: Other (Intubate and on mechanical ventilation) Respiratory: Other (Bilateral upper airway transmitted sounds.) Cardiovascular: No edema, Regular rate/rhythm, Normal S1 S2 Gastrointestinal: Soft and benign, Non-distended Musculoskeletal: Other (Purplish discoloration/cyanosis/gangrene of fingers and toes and tip of nose.) Neurological: Other (Unresponsive) - Studies Medications List Reviewed: Yes Assessment And Plan - Current Problems (Diagnosis) (1) SVT (supraventricular tachycardia) Current Visit: Yes Status: Acute (2) Chronic systolic heart failure Current Visit: Yes Status: Acute (3) Acute respiratory failure with hypoxia Current Visit: Yes Status: Acute (4) Acute on chronic anemia Current Visit: Yes Status: Acute (5) MSSA (methicillin susceptible Staphylococcus aureus) septicemia Current Visit: Yes Status: Acute (6) COVID-19 virus infection Current Visit: No Status: Acute (7) End-stage renal disease on hemodialysis Current Visit: No Status: Acute (8) Septic shock Current Visit: Yes Status: Acute Physician Review Additional Text: Impression: Septic shock with kidney/liver failure secondary to UTI with MSSA bacteremia complicated with bilateral COVID 19/NSTEMI/end-stage renal disease End-stage renal disease with uremia, hyperkalemia NSTEMI likely underlying CAD Acute on chronic anemia Thrombocytopenia likely related to septic shock with possible vasculitis Diabetes mellitus type 2 with hypoglycemia Hypertension with septic shock Elevated liver function suspect acute liver failure related to above Plan: Septic shock with kidney/liver failure likely related to UTI with MSSA bacteremia complicated with bilateral COVID 19: -continue ICU care, pulmology, nephrology consulted -cultures growing MSSA in blood and urine, reviewed with ID. ID recommend ancef and gentamicin (with dialysis). -poor prognosis. -R tunneled catheter removed on 05/22 due to bacteremia, tip sent for culture, temporary cath placed today by Dr. Gibbons -repeat blood cultures yesterday positive -bilateral fingers with dusky / ischemic due to shock and pressor use -MRI when patient stable, likely tomorrow, EEG ordered, neuro consulted End-stage renal disease with uremia, hyperkalemia: Nephrology is following. Patient receiving dialysis. NSTEMI likely underlying CAD: Cardiology consulted. Cardiology would recommend anticoagulation therapy but due to current status / thrombocytopenia will hold off. Ideally patient would require aspirin and Plavix. Patient will need to be treated initially for his infectious process prior to any intervention. Acute liver failure due to shock liver, LFT improved. continue to monitor Thrombocytopenia likely related to septic shock with possible DIC. Also suspect septic emboli given ischemic changes on both hands and toes and tip of nose. Acute on chronic anemia: Will monitor this closely. Status post 2 units PRBC transfusion. Posttransfusion hemoglobin is up to 10. Diabetes mellitus type 2 with hypoglycemia: Accu-Cheks in place. Patient on sliding scale pre Hypertension with septic shock: Hold blood pressure medication. Continue as above. Chronic systolic heart failure EF 15-20% Poor prognosis given multiple organ failure, DIC and septic emboli in the context of advanced heart failure. Recommend comfort measures. Patient's spouse wants aggressive measures for now.
[2020-05-25] MEDS ORDERED: VANCOMYCIN 1.25 GM in NA CHLORIDE 0.9% 250 ML IVPB ONE (16:00)
[2020-05-25] MEDS ORDERED: VANCOMYCIN 500 MG in NA CHLORIDE 0.9% 100 ML IVPB SCH (16:00)
[2020-05-25] MEDS ORDERED: VANCOMYCIN 1.25 GM in NA CHLORIDE 0.9% 500 ML IVPB ONE (16:00)
[2020-05-25] MEDS: GENTAMICIN 80 MG/100 ML BAG 80 MG/100 ML BAG IV SCH (19:51)
[2020-05-26 04:24] VITALS: TEMP 98.6
[2020-05-26] MEDS: NOREPINEPHRINE 4 MG in D5W 250 ML IV PRN (04:48)
[2020-05-26 05:10] LABS: Hematocrit 38.5 % (39.6-49.0); RBC Red Blood Cell Count 4.42 M/uL (4.33-5.43)
[2020-05-26 05:11] LABS: Absolute Lymphocytes (CBC) 1.2 K/uL (0.7-4.9); Basophils % 0.3 % (0-1.3); MPV 12.8 fL (7.6-11.3)
[2020-05-26] MEDS ORDERED: DOPAMINE/D5W 400 MG/250 ML BAG IV PRN (05:30)
[2020-05-26 05:45] VITALS: BMI 23.3
[2020-05-26] MEDS ORDERED: DOPAMINE/D5W 400 MG/250 ML BAG IV ONE (05:47)
[2020-05-26 05:51] LABS: Albumin 1.7 g/dL (3.4-5.0); C-Reactive Protein 77.5 mg/L (<3.00); Ferritin 2540.4 ng/mL (26-388); Magnesium 2.9 mg/dL (1.8-2.4); Protein, Total 4.9 g/dL (6.4-8.2)
[2020-05-26 05:59] LABS: Bilirubin Total 5.6 mg/dL (0.2-1.0); Potassium 6.5 mmol/L (3.5-5.1)
[2020-05-26] MEDS: INSULIN -REGULAR HUMAN 50 UNIT/0.5 ML ML SQ SCH ×2 (06:00)
[2020-05-26 06:39] LABS: Smudge Cells FEW
[2020-05-26 06:40] LABS: Anisocytosis 1+; Blood Morphology Comment NOTED (NOT SEEN); Platelet Estimate DECR; Polychromasia 1+
[2020-05-26] MEDS ORDERED: EPINEPHrine 1 MG/10 ML SYR IV ONE (06:42)
--- NOTE | 2020-05-26 06:54 | P.PN ---
Date of Service: 05/26/20 Nabil gore called at 6:39 a.m.. Patient had PEA. Patient was on multiple pressors including Levophed and dopamine. Patient hands and feet were cyanotic. Patient had been remaining hypotensive to the evening. Patient had been unresponsive for many days. Decision was made to start epinephrine. Patient did not respond. Epinephrine given again. Chest compressions continued. Patient was not responding. Patient remained asystole. Since patient was not responding and prognosis have been poor for a couple days with multiple comorbidities and no one else had anything more to offer at this time we decided to call the code. Patient was pronounced at 6:43 a.m..
[2020-05-26] MEDS ORDERED: CALCITROL 0.25 MCG CAP PO SCH (09:00)
[2020-05-26 11:10] VITALS: BP 58/44
--- NOTE | 2020-05-26 11:40 | PN ---
Subjective: Mr. Adam Vega is the patient who has been followed intermittently by Dr. Rincon for elevated troponin. The patient has a history of diabetes; end-stage renal disease, on hemodialysis; hypertension, was admitted because of elevated troponin, but tested positive for COVID and has remain ed in the hospital since he was admitted on 05/20/2020 for COVID complication. Echocardiogram which was done on 05/24/2020 showed an ejection fraction of 15% to 20% with severe global hypokinesis, mild pulmonary hypertension at 40-45 mmHg. The patient basically was intubated, had coffee-ground by NG tube. Hemoglobin dropped to below 7. He received transfusions. Potassium was 5.7. Dialysis was be ing planned. Nephrology is following. He has sepsis, cardiomyopathy, thrombocytopenia, elevated tro ponin secondary to the cardiomyopathy. The patient obviously very ill at this point for any coronary intervention or invasive cardiac workup. If he makes it through this, we will have to do a left hea rt catheterization to evaluate his cardiomyopathy and coronary anatomy. For now, continue present taisha doss. DONNA/RAVI Voice ID: [id number] Report ID: [id number]
--- NOTE | 2020-05-26 12:23 | P.DS ---
Admission Date: 05/20/20 Discharge Date: 05/26/20 Primary Care Provider: None, Has seen Dr. Zavala in hospital for dialysis Disposition: Reason for Admission: Severe sepsis - Problems (1) SVT (supraventricular tachycardia) Current Visit: Yes Status: Acute (2) Chronic systolic heart failure Current Visit: Yes Status: Acute (3) Acute respiratory failure with hypoxia Current Visit: Yes Status: Acute (4) Acute on chronic anemia Current Visit: Yes Status: Acute (5) MSSA (methicillin susceptible Staphylococcus aureus) septicemia Current Visit: Yes Status: Acute (6) COVID-19 virus infection Current Visit: No Status: Acute (7) End-stage renal disease on hemodialysis Current Visit: No Status: Acute (8) Septic shock Current Visit: Yes Status: Acute Brief History of Present Illness: 54-year-old Kiswahili-speaking gentleman with a history of end-stage renal disease on compassionate hemodialysis presented to the emergency department with a complaint of weakness and malaise and fever. Patient was hospitalized about 6 days prior as he was in need of dialysis. He was dialyzed twice and then subsequently discharged in stable condition. Patient was diagnosed with sepsis in the ED, had elevated lactate and leukocytosis. He was given normal saline bolus as part of sepsis protocol, covered with IV Zosyn and admitted for further management. Hospital Course: Patient admitted to the medical floor and treated aggressively with IV antibio tics. Nephrology was consulted and he underwent hemodialysis. Blood culture grew MSSA. Infectious Disease consulted to assist with management. Antibiotics subsequently tailored to IV cefazolin and gentamicin. Patient did not respond to treatment. His clinical condition became worse. He developed hypotension, SVT, agonal breathing. ACLS was carried out briefly. The patient was intubated and hooked to a ventilator during the process. Patient was transferred to the ICU where his clinical condition continued to worsen. He developed cyanosis any ischemic changes on both fingers, toes and tip of the nose. Multiple blood cultures grew MSSA. Urine culture also grew MSSA. Septic emboli and DIC was suspected. Patient could not be anticoagulated due to severe anemia, severe thrombocytopenia and coffee-ground emesis. 2 vasopressors could not maintain his MAP. Patient developed PEA, ACLS was carried out, patient could not be revived. Patient on 05/26/2020 at 6:43 AM. Vital Signs/Physical Exam: Temp Pulse Resp BP Pulse Ox 98.6 F 94 H 18 58/44 L 64 L 05/26/20 04:00 05/26/20 06:30 05/26/20 06:30 05/26/20 06:30 05/26/20 06:30 Laboratory Data at Discharge: WBC 30.7 K/uL (4.3-10.9) H* D 05/26/20 04:44 Hgb 12.1 g/dL (13.6-17.9) L 05/26/20 04:44 Hct 38.5 % (39.6-49.0) L D 05/26/20 04:44 Plt Count 93 K/uL (152-406) L D 05/26/20 04:44 PT 50.1 SECONDS (9.5-12.5) H 05/25/20 08:45 INR 4.37 H* 05/25/20 08:45 APTT 33.7 SECONDS (24.3-36.9) 05/21/20 12:50 Sodium 135 mmol/L (136-145) L 05/26/20 04:44 Potassium 6.5 mmol/L (3.5-5.1) H* 05/26/20 04:44 BUN 70 mg/dL (7-18) H 05/26/20 04:44 Creatinine 4.54 mg/dL (0.55-1.3) H 05/26/20 04:44 Glucose 124 mg/dL (74-106) H 05/26/20 04:44 Phosphorus 7.9 mg/dL (2.5-4.9) H 05/25/20 08:45 Magnesium 2.9 mg/dL (1.8-2.4) H 05/26/20 04:44 Total Bilirubin 5.6 mg/dL (0.2-1.0) H* 05/26/20 04:44 AST 470 U/L (15-37) H* 05/26/20 04:44 ALT 55 U/L (12-78) 05/26/20 04:44 Alkaline Phosphatase 246 U/L (45-117) H 05/26/20 04:44 Troponin I 1.58 ng/mL (0.0-0.045) H* 05/22/20 20:55 Amylase 50 U/L (25-115) 05/20/20 19:50 Lipase 98 U/L (73-393) 05/20/20 19:50 Home Medications: Furosemide [Lasix*] 80 mg PO DAILY 30 Days #60 tab 12/14/19 Metoprolol Tartrate 1 tab PO BID 05/15/20 Epoetin [Retacrit] 10,000 unit IV EVERY HD vial 05/17/20 Followup: Shelia Briscoe MD [Primary Care Provider] -
--- NOTE | 2020-05-26 14:48 | EEG ---
CHART: [id number] TEST ID#: [id number] DATE OF STUDY: 05/24/2020 THE EEG WAS RECORDED PORTABLE IN THE [facility] ICU ON A 17 CHANNEL MACHINE. ELECTRODES WERE APPLIED IN THE USUAL MANNER USING THE INTERNATIONAL 10-20 SYSTEM. THE WAKING BACKGROUND RHYTHM IN THIS RECORD CONSISTS OF VERY POORLY DEVELOPED AND FAIRLY WELL ORGANIZED WAVES OF 3-5 HZ., IN A WIDE DISTRIBUTION WHICH DO NOT ATTENUATE NORMALLY WITH EYE OPENING. THE EEG BACKGROUND DOES NOT CHANGE WITH STIMULATION OR SPONTANEOUSLY. THERE ARE NO FOCAL OR LATERALIZING FEATURES. NO EPILEPTIFORM ACTIVITY APPEARS. SLEEP DID NOT OCCUR. HYPERVENTILATION WAS NOT PERFORMED. PHOTIC STIMULATION PRODUCED NO DRIVING BILATERALLY. IMPRESSION: THIS IS A MARKEDLY ABNORMAL EEG DUE TO A DIFFUSELY SLOW UNREACTIVE BACKGROUND. IN THE ABSENCE OF DEEP SEDATING MEDICATIONS OR PROFOUND HYPOTHERMIA, THIS FINDING INDICATES THE PRESENCE OF A SEVERE DIFFUSE DISTURBANCE IN CEREBRAL FUNCTION. HOWEVER, THIS FINDING IS NON-SPECIFIC.
--- NOTE | 2020-05-28 16:18 | EKG ---
Test Date: 2020-05-24 Test Time: 20:02:14 De Alcoholizer: RT MEASUREMENT RESULTS: Intervals: Rate: 167 IN: QRSD: 86 QT: 248 QTc: 413 [place]: P: IN: QRS: 0 T: 193 INTERPRETIVE STATEMENTS: Atrial fibrillation with rapid ventricular response with premature ventricular or aberrantly conducted complexes ST & T wave abnormality, consider inferior ischemia or digitalis effect ST & T wave abnormality, consider anterolateral ischemia or digitalis effect Abnormal ECG Compared to ECG 05/20/2020 19:44:09 Ventricular premature complex(es) now present Possible ischemia now present Sinus rhythm no longer present Prolonged QT interval no longer present ST (T wave) deviation still present Electronically Signed On 05-28-20 16:10:29 BLOGS MANAGER by Keven Zamudio
--- NOTE | 2020-05-28 16:18 | EKG ---
Test Date: 2020-05-24 Test Time: 22:18:09 Accounts Receivable Coordinator: RT MEASUREMENT RESULTS: Intervals: Rate: 88 ME: 128 QRSD: 84 QT: 378 QTc: 457 [place]: P: 60 ME: 128 QRS: -24 T: 151 INTERPRETIVE STATEMENTS: Normal sinus rhythm ST & T wave abnormality, consider lateral ischemia Abnormal ECG Compared to ECG 05/24/2020 20:02:14 Atrial fibrillation no longer present Ventricular premature complex(es) no longer present ST (T wave) deviation still present Possible ischemia still present Electronically Signed On 05-28-20 16:10:27 INTERNAL REVENUE AGENT by Keven Zamudio
== END 2020-05-26 06:43 | disposition expired | DRG 871 ==
LOC: ER 18:21 → ERHOLD 21:38 → 4TH 22:39 → 3RD-ICU 05-21 11:16
PROVIDERS: ADMIT Family Medicine; ATTEND Internal Medicine
PROC: 06HY33Z Insertion of Infusion Device into Lower Vein, Percutaneous Approach (ICD-10-PCS; 2020-05-21)
PROC: 5A1D70Z Performance of Urinary Filtration, Intermittent, Less than 6 Hours Per Day (ICD-10-PCS; principal; 2020-05-22)
PROC: 02PY33Z Removal of Infusion Device from Great Vessel, Percutaneous Approach (ICD-10-PCS; 2020-05-22)
PROC: 0JPT0XZ Removal of Tunneled Vascular Access Device from Trunk Subcutaneous Tissue and Fascia, Open Approach (ICD-10-PCS; 2020-05-22)
PROC: 02HV33Z Insertion of Infusion Device into Superior Vena Cava, Percutaneous Approach (ICD-10-PCS; 2020-05-24)
PROC: B5181ZA Fluoroscopy of Superior Vena Cava using Low Osmolar Contrast, Guidance (ICD-10-PCS; 2020-05-24)
PROC: 30233N1 Transfusion of Nonautologous Red Blood Cells into Peripheral Vein, Percutaneous Approach (ICD-10-PCS; 2020-05-24)
PROC: 30233R1 Transfusion of Nonautologous Platelets into Peripheral Vein, Percutaneous Approach (ICD-10-PCS; 2020-05-25)
PROC: 5A1945Z Respiratory Ventilation, 24-96 Consecutive Hours (ICD-10-PCS; 2020-05-25)
PROC: 0BH17EZ Insertion of Endotracheal Airway into Trachea, Via Natural or Artificial Opening (ICD-10-PCS; 2020-05-25)
DX: A41.89 Other specified sepsis (principal); U07.1 COVID-19; N18.6 End stage renal disease; J12.89 Other viral pneumonia; R65.21 Severe sepsis with septic shock; I21.A1 Myocardial infarction type 2; K72.00 Acute and subacute hepatic failure without coma; G93.41 Metabolic encephalopathy; I50.23 Acute on chronic systolic (congestive) heart failure; J96.01 Acute respiratory failure with hypoxia; R64 Cachexia; N39.0 Urinary tract infection, site not specified; I43 Cardiomyopathy in diseases classified elsewhere; I47.1 Supraventricular tachycardia; I13.2 Hypertensive heart and chronic kidney disease with heart failure and with stage 5 chronic kidney disease, or end stage renal disease; I48.91 Unspecified atrial fibrillation; I76 Septic arterial embolism; A41.01 Sepsis due to Methicillin susceptible Staphylococcus aureus; E11.22 Type 2 diabetes mellitus with diabetic chronic kidney disease; E11.649 Type 2 diabetes mellitus with hypoglycemia without coma; F17.200 Nicotine dependence, unspecified, uncomplicated; D69.6 Thrombocytopenia, unspecified; D63.8 Anemia in other chronic diseases classified elsewhere; E87.5 Hyperkalemia; R23.0 Cyanosis; R77.8 Other specified abnormalities of plasma proteins; R79.89 Other specified abnormal findings of blood chemistry; Z99.2 Dependence on renal dialysis; Z79.899 Other long term (current) drug therapy; Z68.23 Body mass index [BMI] 23.0-23.9, adult
CPT/HCPCS: 36415; 36430; 70450; 71045; 71250; 74176; 76000; 76705; 80048; 80053; 80074; 80076; 80170; 81003; 81015; 82140; 82150; 82306; 82550; 82553; 82728; 82805; 82947; 83010; 83605; 83615; 83690; 83735; 84100; 84145; 84484; 85014; 85018; 85025; 85049; 85384; 85610; 85730; 86140; 86317; 86850; 86900; 86901; 87040; 87070; 87077; 87081; 87086; 87088; 87186; 87205; 90935; 93005; 93306; 93925; 93970; 94002; 94003; 95816; 96365; 96375; 99285; C9113; J0153; J0171; J0282; J0610; J0690; J0692; J1200; J1265; J1580; J1644; J2354; J2543; J2930; J3370; J7030; J7040; J7050; J7060; P9016; P9035; P9047; Q5106; U0003